=== PATIENT | female | born 1975 | race American Indian/Alaskan Native ===

== ENCOUNTER 2022-03-29 14:26 | Inpatient (IN) | payer BC ==
[2022-03-29] MEDS ORDERED: SODIUM CHLORIDE 0.9% 1000 ML 1,000 ML IV ONE ×3 (15:30→17:40)
[2022-03-29] MEDS ORDERED: SODIUM CHLORIDE 0.9% 1000 ML 1,000 ML ONE (15:31)
[2022-03-29 16:31] LABS: Basophils % (Auto) 0.3 % (0.0-1.8); Eosinophils % (Auto) 0.1 % (0.0-4.3); Hematocrit 46.1 % (30.3-42.9); Hemoglobin 15.5 gm/dl (10.1-14.3); Lymphocytes # (Auto) 1.6 K/mm3 (1.2-5.4); Lymphocytes % (Auto) 19.4 % (13.4-35.0); Mean Corpuscular HGB Conc 34 % (30-34); Mean Corpuscular Volume 97 fl (79-97); Monocytes # (Auto) 0.6 K/mm3 (0.0-0.8); Monocytes % (Auto) 6.9 % (0.0-7.3); Red Blood Count 4.77 M/mm3 (3.65-5.03)
[2022-03-29 16:32] LABS: Platelet Count 95 K/mm3 (140-440)
[2022-03-29 16:40] LABS: INR 1.08 (0.87-1.13)
[2022-03-29 16:55] LABS: Creatine Kinase MB 5.1 ng/mL (0.0-4.0)
[2022-03-29] MEDS ORDERED: ASPIRIN 325 MG TAB PO ONE (17:04)
[2022-03-29] MEDS ORDERED: INSULIN REGULAR, HUMAN 100 UNITS/1 ML IV ONE (17:07)
[2022-03-29 17:12] LABS: Albumin 4.2 g/dL (3.9-5); Calcium 9.3 mg/dL (8.4-10.2)
--- NOTE | 2022-03-29 17:20 | Emergency Department Report ---
ED Shortness of Breath HPI - General Chief Complaint: Hyperglycemia Stated Complaint: SHORTNESS OF BREATH/TACHYCARDIA Time Seen by Provider: 03/29/22 15:33 Source: patient, EMS Mode of arrival: Stretcher Limitations: No Limitations - History of Present Illness Initial Comments: 46-year-old obese female with no significant past medical history presents to the hospital complaining of shortness of breath for several days worse with exertion. As per EMS glucose was 4 5 and patient was tachycardic in the 140s to 150s. Patient denies a previous history of diabetes, vomiting, diarrhea, dysuria, polyuria, increased thirst, chest pain, abdominal pain, fever, recent travel, and control use. Previous history of . - Related Data Allergies Allergy/AdvReac Type Severity Reaction Status Date / Time No Known Allergies Allergy Unverified 03/29/22 14:51 ED Review of Systems ROS: Stated complaint: SHORTNESS OF BREATH/TACHYCARDIA Other details as noted in HPI Comment: All other systems reviewed and negative ED Past Medical Hx - Past Medical History Previous Medical History?: No - Surgical History Past Surgical History?: No - Social History Smoking Status: Light Tobacco Smoker Substance Use Type: None ED Physical Exam - General Limitations: No Limitations - Other Other exam information: General: No acute distress Head: Atraumatic Eyes: normal appearance ENT: Moist mucous membranes Neck: Normal appearance, no midline tenderness Chest: Tachypnea with equal breath sounds bilaterally, no accessory muscle use CV: Tachycardia regular rhythm Abdomen: Soft, normal bowel sounds, nontender, nondistended, no rebound or guarding Back: Normal inspection Extremity: Normal inspection, full range of motion, no calf tenderness or leg Neuro: Alert O x 3, no facial asymmetry, speech clear, no gross motor sensory deficit Psych: Appropriate behavior Skin: No rash ED Course Vital Signs 03/29/22 03/29/22 03/29/22 14:26 15:16 15:19 Temperature 97.8 F Pulse Rate 140 H 134 H Respiratory 24 20 18 Rate Blood Pressure Blood Pressure 140/92 [Left] O2 Sat by Pulse 95 94 98 Oximetry 03/29/22 15:30 Temperature Pulse Rate 132 H Respiratory 35 H Rate Blood Pressure 110/62 Blood Pressure [Left] O2 Sat by Pulse 98 Oximetry ED Medical Decision Making - Lab Data Result diagrams: 03/29/22 15:49 07/13/22 15:49 Lab Results 03/29/22 03/29/22 03/29/22 Range/Units 15:29 15:49 15:49 WBC 8.1 (4.5-11.0) K/mm3 RBC 4.77 (3.65-5.03) M/mm3 Hgb 15.5 H (10.1-14.3) gm/dl Hct 46.1 H (30.3-42.9) % MCV 97 (79-97) fl MCH 32 (28-32) pg MCHC 34 (30-34) % RDW 13.0 L (13.2-15.2) % Plt Count 95 L (140-440) K/mm3 Lymph % (Auto) 19.4 (13.4-35.0) % [place] % (Auto) 6.9 (0.0-7.3) % Eos % (Auto) 0.1 (0.0-4.3) % Baso % (Auto) 0.3 (0.0-1.8) % Lymph # (Auto) 1.6 (1.2-5.4) K/mm3 [place] # (Auto) 0.6 (0.0-0.8) K/mm3 Eos # (Auto) 0.0 (0.0-0.4) K/mm3 Baso # (Auto) 0.0 (0.0-0.1) K/mm3 Seg Neutrophils % 73.3 H (40.0-70.0) % Seg Neutrophils # 6.0 (1.8-7.7) K/mm3 PT (12.2-14.9) Sec. INR (0.87-1.13) VBG pH (7.320-7.420) Sodium 133 L (137-145) mmol/L Potassium 5.2 H (3.6-5.0) mmol/L Chloride 95.0 L (98-107) mmol/L Carbon Dioxide 13 L (22-30) mmol/L Anion Gap 30 mmol/L BUN 12 (7-17) mg/dL Creatinine 1.3 H (0.6-1.2) mg/dL Estimated GFR 44 ml/min BUN/Creatinine Ratio 9 % Glucose 574 H* (65-100) mg/dL POC Glucose 466 H (70-105) mg/dL Calcium 9.3 (8.4-10.2) mg/dL Phosphorus (2.5-4.5) mg/dL Magnesium (1.7-2.3) mg/dL Total Bilirubin 0.50 (0.1-1.2) mg/dL AST 217 H (5-40) units/L ALT 206 H (7-56) units/L Alkaline Phosphatase 79 (35-129) units/L Total Creatine Kinase (30-135) units/L CK-MB (CK-2) (0.0-4.0) ng/mL CK-MB (CK-2) Rel Index (0-4) Troponin T (0.00-0.029) ng/mL Total Protein 7.2 (6.3-8.2) g/dL Albumin 4.2 (3.9-5) g/dL Albumin/Globulin Ratio 1.4 % TSH (0.270-4.200) mlU/mL Free T4 (0.76-1.46) ng/dL HCG, Qual (Negative) 03/29/22 03/29/22 03/29/22 Range/Units 15:49 15:49 15:49 WBC (4.5-11.0) K/mm3 RBC (3.65-5.03) M/mm3 Hgb (10.1-14.3) gm/dl Hct (30.3-42.9) % MCV (79-97) fl MCH (28-32) pg MCHC (30-34) % RDW (13.2-15.2) % Plt Count (140-440) K/mm3 Lymph % (Auto) (13.4-35.0) % [place] % (Auto) (0.0-7.3) % Eos % (Auto) (0.0-4.3) % Baso % (Auto) (0.0-1.8) % Lymph # (Auto) (1.2-5.4) K/mm3 [place] # (Auto) (0.0-0.8) K/mm3 Eos # (Auto) (0.0-0.4) K/mm3 Baso # (Auto) (0.0-0.1) K/mm3 Seg Neutrophils % (40.0-70.0) % Seg Neutrophils # (1.8-7.7) K/mm3 PT (12.2-14.9) Sec. INR (0.87-1.13) VBG pH 7.213 L (7.320-7.420) Sodium (137-145) mmol/L Potassium (3.6-5.0) mmol/L Chloride (98-107) mmol/L Carbon Dioxide (22-30) mmol/L Anion Gap mmol/L BUN (7-17) mg/dL Creatinine (0.6-1.2) mg/dL Estimated GFR ml/min BUN/Creatinine Ratio % Glucose (65-100) mg/dL POC Glucose (70-105) mg/dL Calcium (8.4-10.2) mg/dL Phosphorus (2.5-4.5) mg/dL Magnesium (1.7-2.3) mg/dL Total Bilirubin (0.1-1.2) mg/dL AST (5-40) units/L ALT (7-56) units/L Alkaline Phosphatase (35-129) units/L Total Creatine Kinase (30-135) units/L CK-MB (CK-2) (0.0-4.0) ng/mL CK-MB (CK-2) Rel Index (0-4) Troponin T (0.00-0.029) ng/mL Total Protein (6.3-8.2) g/dL Albumin (3.9-5) g/dL Albumin/Globulin Ratio % TSH 1.120 (0.270-4.200) mlU/mL Free T4 1.42 (0.76-1.46) ng/dL HCG, Qual Negative (Negative) 03/29/22 03/29/22 Range/Units 15:49 15:49 WBC (4.5-11.0) K/mm3 RBC (3.65-5.03) M/mm3 Hgb (10.1-14.3) gm/dl Hct (30.3-42.9) % MCV (79-97) fl MCH (28-32) pg MCHC (30-34) % RDW (13.2-15.2) % Plt Count (140-440) K/mm3 Lymph % (Auto) (13.4-35.0) % [place] % (Auto) (0.0-7.3) % Eos % (Auto) (0.0-4.3) % Baso % (Auto) (0.0-1.8) % Lymph # (Auto) (1.2-5.4) K/mm3 [place] # (Auto) (0.0-0.8) K/mm3 Eos # (Auto) (0.0-0.4) K/mm3 Baso # (Auto) (0.0-0.1) K/mm3 Seg Neutrophils % (40.0-70.0) % Seg Neutrophils # (1.8-7.7) K/mm3 PT 15.2 H (12.2-14.9) Sec. INR 1.08 (0.87-1.13) VBG pH (7.320-7.420) Sodium (137-145) mmol/L Potassium (3.6-5.0) mmol/L Chloride (98-107) mmol/L Carbon Dioxide (22-30) mmol/L Anion Gap mmol/L BUN (7-17) mg/dL Creatinine (0.6-1.2) mg/dL Estimated GFR ml/min BUN/Creatinine Ratio % Glucose (65-100) mg/dL POC Glucose (70-105) mg/dL Calcium (8.4-10.2) mg/dL Phosphorus 6.80 H (2.5-4.5) mg/dL Magnesium 2.00 (1.7-2.3) mg/dL Total Bilirubin (0.1-1.2) mg/dL AST (5-40) units/L ALT (7-56) units/L Alkaline Phosphatase (35-129) units/L Total Creatine Kinase 146 H (30-135) units/L CK-MB (CK-2) 5.1 H (0.0-4.0) ng/mL CK-MB (CK-2) Rel Index 3.4 (0-4) Troponin T 0.167 H* (0.00-0.029) ng/mL Total Protein (6.3-8.2) g/dL Albumin (3.9-5) g/dL Albumin/Globulin Ratio % TSH (0.270-4.200) mlU/mL Free T4 (0.76-1.46) ng/dL HCG, Qual (Negative) - EKG Data -: EKG Interpreted by Mt EKG shows normal: sinus rhythm, intervals (QTC 518), ST-T waves (no stemi) Rate: tachycardia - Radiology Data Radiology results: report reviewed XR chest 1V ap INDICATION / CLINICAL INFORMATION: sob COMPARISON: None available. FINDINGS: SUPPORT DEVICES: None. HEART / MEDIASTINUM: No significant abnormality. LUNGS / PLEURA: Lungs are clear. Costophrenic sulci are sharp. No pneumothorax. ADDITIONAL FINDINGS: No significant additional findings. IMPRESSION: 1. No acute findings. - Medical Decision Making 46-year-old female presents to the hospital with shortness of breath. Patient has new onset diabetes with laboratory findings suggestive of DKA. Shortness of breath likely secondary to compensation from metabolic acidosis. Chest x-ray unremarkable with normal pulse ox. Patient treated with insulin bolus, IV fluids, insulin drip with DKA protocol initiated. Case discussed with critical care attending who will consult. Mild troponin elevation noted with normal CK- MB. Dr. Vann does not advise cardiology consultation at this time. Patient does not have chest pain. hospitalist will admit. UA, UDS and thyroid pending at disposition Critical Care Time: Yes Critical care attestation.: If time is entered above; I have spent that time in minutes in the direct care of this critically ill patient, excluding procedure time. ED Disposition Clinical Impression: DKA (diabetic ketoacidosis), Diabetes mellitus, new onset, Thrombocytopenia Disposition: 09 ADMITTED INPATIENT Is pt being admited?: Yes Does the pt Need Aspirin: No Condition: Stable Instructions: Diabetic Ketoacidosis (ED), Diabetes Mellitus Type 2 in Adults (ED) Time of Disposition: 17:20 (dr Vann/hospitalist)
--- NOTE | 2022-03-29 17:20 | XRay Report ---
XR chest 1V ap INDICATION / CLINICAL INFORMATION: sob COMPARISON: None available. FINDINGS: SUPPORT DEVICES: None. HEART / MEDIASTINUM: No significant abnormality. LUNGS / PLEURA: Lungs are clear. Costophrenic sulci are sharp. No pneumothorax. ADDITIONAL FINDINGS: No significant additional findings. IMPRESSION: 1. No acute findings. Signer Name: Catracho Morales MD Signed: 03/29/2022 5:10 PM Workstation Name: [email or web address]
[2022-03-29 17:23] LABS: Free T4 (Free Thyroxine) 1.42 ng/dL (0.76-1.46)
[2022-03-29] MEDS ORDERED: POTASSIUM CHLORIDE 10 MEQ 10 MEQ/100 ML BAG IV PRN (17:40)
[2022-03-29] MEDS ORDERED: DEXTROSE 50% IN WATER (25GM) 50 ML SYRINGE IV PRN (17:40)
[2022-03-29] MEDS ORDERED: IBUPROFEN 600 MG TAB PO PRN (17:42)
[2022-03-29] MEDS ORDERED: D5W/0.45% NACL/KCL 20 MEQ 20 MEQ/1,000 ML BAG IV SCH (18:00)
[2022-03-29] MEDS ORDERED: INSULIN REGULAR, HUMAN 100 UNITS in SODIUM CHLORIDE 0.9% 99 ML IV SCH (18:00)
[2022-03-29 19:16] LABS: Chol/HDL Ratio 3.65 %
[2022-03-29 21:02] LABS: Calcium 8.9 mg/dL (8.4-10.2)
[2022-03-30] MEDS ORDERED: LORazepam 2 MG/ML VIAL IV ONE (00:28)
[2022-03-30 02:37] LABS: BUN/Creatinine Ratio 16; Blood Urea Nitrogen 16 mg/dL (7-17); Calcium 9.2 mg/dL (8.4-10.2); Hemolysis Index 17
--- NOTE | 2022-03-30 06:03 | History and Physical Report ---
History of Present Illness Date of examination: 03/29/22 Date of admission: 03/29/22 17:44 Chief complaint: Severe generalized weakness for 10 days History of present illness: 46-year-old -Italian female with no significant past medical history except for anxiety comes in for generalized weakness and shortness of breath for about 10 to 14 days. No vomiting or diarrhea. Some nausea present. Patient called EMS. Blood glucose Accu-Chek was very high above 500. Emergency room course :high blood glucose level and increased anion gap--- new onset diabetes and hyperosmolar state for which patient is being admitted to ICU for IV insulin drip and IV fluids . Other than mild anxiety patient does not have any significant past medical history. No fever or chills. No recent increased travel. - Past Medical History Previous Medical History?: No - Surgical History Past Surgical History?: No - Social History Smoking Status: Light Tobacco Smoker--3 to 4/day Substance Use Type: None Review of Systems ROS: Stated complaint: SHORTNESS OF BREATH/TACHYCARDIA Other details as noted in HPI Comment: All other systems reviewed and negative Medications and Allergies Allergies Allergy/AdvReac Type Severity Reaction Status Date / Time No Known Allergies Allergy Unverified 03/29/22 14:51 Active Meds: Active Medications Dextrose (Dextrose 50% In Water (25gm) 50 Ml Syringe) 0 ml IV Q30MIN PRN; Protocol PRN Reason: Hypoglycemia Insulin Human Regular 100 (units/ Sodium Chloride) 100 mls @ 1 mls/hr IV TITR J LUIS; Protocol Last Titration: 03/30/22 05:29 Dose: 3 units/hr, 3 mls/hr Potassium Chloride/Dextrose/Sod Cl (D5w/0.45% Nacl/Kcl 20 Meq) 20 meq in 1,000 mls @ 125 mls/hr IV DIRECT J LUIS Potassium Chloride (Kcl 10meq/100ml) 10 meq in 100 mls @ 100 mls/hr IV Q1H PRN PRN Reason: LOW Potassium Levels Ibuprofen (Ibuprofen 600 Mg Tab) 600 mg PO Q6H PRN PRN Reason: Pain, Mild (1-3) Morphine Sulfate (Morphine 2 Mg/1 Ml Inj) 2 mg IV Q4H PRN PRN Reason: Pain, Moderate (4-6) Sodium Chloride (Sodium Chloride 0.9% 10 Ml Flush Syringe) 10 ml IV BID J LUIS Sodium Chloride (Sodium Chloride 0.9% 10 Ml Flush Syringe) 10 ml IV PRN PRN PRN Reason: LINE FLUSH Exam - Physical Exam Narrative exam: Patient is moderately obese - Constitutional Vitals: Temp Pulse Resp BP Pulse Ox 97.8 F 122 H 31 H 118/98 98 03/29/22 14:26 03/30/22 01:00 03/30/22 01:00 03/30/22 01:00 03/30/22 01:00 General appearance: Present: mild distress, well-nourished - EENT Eyes: Present: PERRL ENT: hearing intact, clear oral mucosa - Neck Neck: Present: supple, normal ROM - Respiratory Respiratory effort: normal Respiratory: bilateral: CTA - Cardiovascular Heart rate: 78 Rhythm: regular Heart Sounds: Present: S1 & S2. Absent: rub, click - Extremities Extremities: pulses symmetrical, No edema Peripheral Pulses: within normal limits - Abdominal General gastrointestinal: Present: soft, non-tender, non-distended, normal bowel sounds Female genitourinary: Present: normal - Integumentary Integumentary: Present: clear, warm, dry - Musculoskeletal Musculoskeletal: gait normal, strength equal bilaterally - Psychiatric Psychiatric: appropriate mood/affect, intact judgment & insight - Neurologic Neurologic: CNII-XII intact, moves all extremities - Allied Health Allied health notes reviewed: nursing, case management HEART Score - HEART Score Troponin: Troponin T 0.167 ng/mL (0.00-0.029) H* 03/29/22 15:49 Results - Labs CBC & Chem 7: 03/29/22 15:49 03/30/22 01:44 Labs: Laboratory Last Values WBC 8.1 K/mm3 (4.5-11.0) 03/29/22 15:49 RBC 4.77 M/mm3 (3.65-5.03) 03/29/22 15:49 Hgb 15.5 gm/dl (10.1-14.3) H 03/29/22 15:49 Hct 46.1 % (30.3-42.9) H 03/29/22 15:49 MCV 97 fl (79-97) 03/29/22 15:49 MCH 32 pg (28-32) 03/29/22 15:49 MCHC 34 % (30-34) 03/29/22 15:49 RDW 13.0 % (13.2-15.2) L 03/29/22 15:49 Plt Count 95 K/mm3 (140-440) L 03/29/22 15:49 Lymph % (Auto) 19.4 % (13.4-35.0) 03/29/22 15:49 [place] % (Auto) 6.9 % (0.0-7.3) 03/29/22 15:49 Eos % (Auto) 0.1 % (0.0-4.3) 03/29/22 15:49 Baso % (Auto) 0.3 % (0.0-1.8) 03/29/22 15:49 Lymph # (Auto) 1.6 K/mm3 (1.2-5.4) 03/29/22 15:49 [place] # (Auto) 0.6 K/mm3 (0.0-0.8) 03/29/22 15:49 Eos # (Auto) 0.0 K/mm3 (0.0-0.4) 03/29/22 15:49 Baso # (Auto) 0.0 K/mm3 (0.0-0.1) 03/29/22 15:49 Seg Neutrophils % 73.3 % (40.0-70.0) H 03/29/22 15:49 Seg Neutrophils # 6.0 K/mm3 (1.8-7.7) 03/29/22 15:49 PT 15.2 Sec. (12.2-14.9) H 03/29/22 15:49 INR 1.08 (0.87-1.13) 03/29/22 15:49 VBG pH 7.213 (7.320-7.420) L 03/29/22 15:49 Sodium 136 mmol/L (137-145) L 03/30/22 01:44 Potassium 4.5 mmol/L (3.6-5.0) 03/30/22 01:44 Chloride 103.4 mmol/L (98-107) 03/30/22 01:44 Carbon Dioxide 14 mmol/L (22-30) L 03/30/22 01:44 Anion Gap 23 mmol/L 03/30/22 01:44 BUN 16 mg/dL (7-17) 03/30/22 01:44 Creatinine 1.0 mg/dL (0.6-1.2) 03/30/22 01:44 Estimated GFR > 60 ml/min 03/30/22 01:44 BUN/Creatinine Ratio 16 % 03/30/22 01:44 Glucose 196 mg/dL (65-100) H 03/30/22 01:44 POC Glucose 188 mg/dL (70-105) H 03/30/22 05:29 Calcium 9.2 mg/dL (8.4-10.2) 03/30/22 01:44 Phosphorus 6.80 mg/dL (2.5-4.5) H 03/29/22 15:49 Magnesium 2.00 mg/dL (1.7-2.3) 03/29/22 15:49 Total Bilirubin 0.50 mg/dL (0.1-1.2) 03/29/22 15:49 AST 217 units/L (5-40) H 03/29/22 15:49 ALT 206 units/L (7-56) H 03/29/22 15:49 Alkaline Phosphatase 79 units/L (35-129) 03/29/22 15:49 Total Creatine Kinase 146 units/L (30-135) H 03/29/22 15:49 CK-MB (CK-2) 5.1 ng/mL (0.0-4.0) H 03/29/22 15:49 CK-MB (CK-2) Rel Index 3.4 (0-4) 03/29/22 15:49 Troponin T 0.167 ng/mL (0.00-0.029) H* 03/29/22 15:49 Total Protein 7.2 g/dL (6.3-8.2) 03/29/22 15:49 Albumin 4.2 g/dL (3.9-5) 03/29/22 15:49 Albumin/Globulin Ratio 1.4 % 03/29/22 15:49 Triglycerides 168 mg/dL (2-149) H 03/29/22 15:49 Cholesterol 190 mg/dL (50-199) 03/29/22 15:49 LDL Cholesterol Direct 127 mg/dL (50-130) 03/29/22 15:49 HDL Cholesterol 52 mg/dL (40-59) 03/29/22 15:49 Cholesterol/HDL Ratio 3.65 % 03/29/22 15:49 TSH 1.120 mlU/mL (0.270-4.200) 03/29/22 15:49 Free T4 1.42 ng/dL (0.76-1.46) 03/29/22 15:49 HCG, Qual Negative (Negative) 03/29/22 15:49 Short CBC 03/29/22 Range/Units 15:49 WBC 8.1 (4.5-11.0) K/mm3 Hgb 15.5 H (10.1-14.3) gm/dl Hct 46.1 H (30.3-42.9) % Plt Count 95 L (140-440) K/mm3 BMP 03/29/22 03/29/22 03/30/22 15:49 20:26 01:44 Sodium 133 L 135 L 136 L Potassium 5.2 H 4.5 4.5 Chloride 95.0 L 99.2 103.4 Carbon Dioxide 13 L 13 L 14 L BUN 12 14 16 Creatinine 1.3 H 1.2 1.0 Glucose 574 H* 399 H 196 H Calcium 9.3 8.9 9.2 Cardiac Enzymes 03/29/22 Range/Units 15:49 Total Creatine Kinase 146 H (30-135) units/L CK-MB (CK-2) 5.1 H (0.0-4.0) ng/mL Troponin T 0.167 H* (0.00-0.029) ng/mL Liver Function 03/29/22 Range/Units 15:49 Total Bilirubin 0.50 (0.1-1.2) mg/dL AST 217 H (5-40) units/L ALT 206 H (7-56) units/L Alkaline Phosphatase 79 (35-129) units/L Albumin 4.2 (3.9-5) g/dL - Imaging and Cardiology Imaging and Cardiology: Chest x-ray Chest x-ray no acute findings Assessment and Plan Assessment and plan: Critical care statement The high probability OF a clinically significant sudden or life-threatening deterioration of the cardiorespiratory system and endocrine system required my full and direct attention, intervention and postoperative management. The aggregate critical care time was 40 minutes. The time is in addition to time spent performing reported procedures but includes the followin: Data review and interpretation 2: Patient assessment and monitoring of vital signs 3: Documentation 4:: Medication orders and management Advance Directives: Yes (Full code) VTE prophylaxis?: Chemical Plan of care discussed with patient/family: Yes - Patient Problems (1) Hyperosmolar non-ketotic state due to type 2 diabetes mellitus Current Visit: Yes Status: Acute Plan to address problem: Patient initiated on IV insulin drip plan IV fluids New onset diabetes Patient to be educated about diabetes by primary care and dietitian Moiz also initiated Urinalysis was ordered stat but pending Expect no ketones (2) Hyperkalemia Current Visit: Yes Status: Acute Plan to address problem: Mild Should resolve with IV insulin Potassium is 5.2 (3) Hyponatremia Current Visit: Yes Status: Acute Plan to address problem: Should resolve with IV fluids and correction of blood glucose (4) Metabolic acidosis Current Visit: Yes Status: Acute Plan to address problem: Secondary to hyperosmolar state IV insulin and IV fluids for now Anion gap is high and venous pH is slightly low (5) Elevated troponin Current Visit: Yes Status: Acute Plan to address problem: Will repeat the troponin NSTEMI 2 (6) DVT prophylaxis Current Visit: Yes Status: Acute Plan to address problem: On anticoagulation GI prophylaxis (7) Advance care planning Current Visit: Yes Status: Acute Plan to address problem: Disease management conducted diagnosis prognosis and care plan discussed patient acknowledges care plan. Care plan +30 minutes
[2022-03-30 07:01] LABS: Bilirubin,Urine NEG (Negative); Blood,Urine MOD (Negative); Color,Urine Yellow (Yellow)
[2022-03-30 07:07] LABS: Bacteria,Urine 1+ /HPF (Negative); Hyaline Casts,Urine 54 /LPF; Mucus,Urine FEW /HPF
[2022-03-30 07:10] LABS: Amphetamine Screen,Urine Negative; Benzodiazepines Screen,Urine Negative; Cannabinoid Screen,Urine Negative; Cocaine Screen,Urine Negative; Methadone Screen,Urine Negative; Opiate Screen,Urine Negative
--- NOTE | 2022-03-30 09:17 | Electrocardiograph Report ---
[facility] Test Date: 2022-03-29 Test Time: 15:35:37 Pat Name: LATONIA JAMIL Department: Room: [place] [address] Gender: F Accounts Supervisor: ADALGISA : 1975 Requested By: RANJITH SIMON Order Number: [id number] Reading MD: Abner Lynn Measurements Intervals [place] Rate: 133 P: 37 [place]: 96 QRS: -12 QRSD: 89 T: -8 QT: 348 QTc: 518 Interpretive Statements Sinus tachycardia Inferior infarct, age indeterminate nonspecific st-t No previous ECG available for comparison Electronically Signed On 03-30-2022 9:16:31 EDT by Abner Lynn
--- NOTE | 2022-03-30 12:06 | Progress Note ---
Assessment and Plan Assessment and plan: History of present illness: 46-year-old -[place] female with no significant past medical history except for anxiety comes in for generalized weakness and shortness of breath for about 10 to 14 days. No vomiting or diarrhea. Some nausea present. Patient called EMS. Blood glucose Accu-Chek was very high above 500. Emergency room course :high blood glucose level and increased anion gap--- new onset diabetes and hyperosmolar state for which patient is being admitted to ICU for IV insulin drip and IV fluids . Other than mild anxiety patient does not have any signi ficant past medical history. No fever or chills. No recent increased travel. Assessment and Plan: #Diabetic ketoacidosis - A , BG 574, now 177, ketonuria, VB.2 - weakness, states she is compliant with meds. - DKA protocol: IV insulin, IVF. - NPO until AG closes - once AG closed (< 14), can start lantus 10 mg subq. Please run insulin gtt 1hr after lantus admin. Can initiate diabetic diet as well - accuchecks q1 hr until AG closed - BMP q4hr until AG closed CCM consultation #Chest pain -Endorses chest pressure, shortness of breath, diaphoresis. Denies jaw pain or shoulder pain. Risk factors: Diabetic, occasional smoker, overweight, family history of di abetes and hypertension -EKG sinus tachycardia, rate 133. no st elevation or depression noted. -Troponin elevation 0.167, trend every 6 hour Cardiology consultation Suspect troponin elevation is type II however would consider Lexiscan given symptomology and risk factors. #Hyperkalemia -K5.2 on admission, downtrending -trend on serial bmp #Pseudohyponatremia - 2/2 DKA #Metabolic acidosis - 2/2 DKA #Type 2 Diabetes with Hyperglycemia - newly dx diabetic. not on medication - hemoglobin A1c ordered - home regimen: denies - current regimen: Insulin gtt - blood glucose goal 140-180 while inpatient - continue to monitor #Morbid Obesity - BMI 33.7 - Counseled patient on the importance of weight loss, incorporating exercise, and dietary changes (lean meats, fresh fruits and vegetables, and water intake). Patient expresses understanding. - Time: +15 min The high probability of a clinically significant, sudden or life threatening deterioration of the [multi] system(s) required my full and direct attention, intervention and personal management. The aggregate critical care time was [60] minutes. This time is in addition to time spent performing reported procedures but includes the following: [x] Data Review and interpretation [x] Patient assessment and monitoring of vital signs [x] Documentation [x] Medication orders and management History Interval history: No acute complaints on encounter. She denies any shortness of breath, chest pain. She denies any nausea or vomiting. Patient states that prior to admission she had been's feeling a sense of general unwellness and chest pressure. She states that the chest pressure was associated with shortness of breath and diaphoresis. This is never happened to her before. She has no history of PR, stroke, blood clots. She smokes Black and mild cigars on occasion. She is a newly diagnosed diabetic and is obese and has been for some quite some time. Family history significant for diabetes/hypertension. She denied having ever having a stress test or cardiac cath. The patient has not seen a primary care doctor in quite some time. Hospitalist Physical - Physical exam Narrative exam: Physical Exam: VITAL SIGNS: Reviewed. GENERAL: The patient appears normally developed, Vital signs as documented. Obese HEAD: No signs of head trauma. EYES: Pupils are equal. Extraocular motions intact. EARS: Hearing grossly intact. MOUTH: Oropharynx is normal. NECK: No adenopathy, no JVD. CHEST: Chest with clear breath sounds bilaterally. No wheezes, rales, or rhonchi. CARDIAC: Regular rate and rhythm. S1 and S2, without murmurs, gallops, or rubs. VASCULAR: No Edema. Peripheral pulses normal and equal in all extremities. ABDOMEN: Soft, non tender and non distended. No rebound or guarding, and no masses palpated. Bowel Sounds normal. MUSCULOSKELETAL: Good range of motion of all major joints. Extremities without clubbing, cyanosis or edema. NEUROLOGIC EXAM: Alert and oriented x 4. no focal sensory or strength deficits. PSYCHIATRIC: Mood normal. SKIN: detail exam as documented in skin assessment - Constitutional Vitals: Temp Pulse Resp BP Pulse Ox 97.8 F 119 H 28 H 109/80 100 03/29/22 14:26 03/30/22 11:46 03/30/22 11:46 03/30/22 11:46 03/30/22 11:46 General appearance: Present: mild distress, well-nourished HEART Score - HEART Score Troponin: Troponin T 0.167 ng/mL (0.00-0.029) H* 03/29/22 15:49 Results - Labs CBC & Chem 7: 03/29/22 15:49 03/30/22 01:44 Labs: Laboratory Last Values WBC 8.1 K/mm3 (4.5-11.0) 03/29/22 15:49 RBC 4.77 M/mm3 (3.65-5.03) 03/29/22 15:49 Hgb 15.5 gm/dl (10.1-14.3) H 03/29/22 15:49 Hct 46.1 % (30.3-42.9) H 03/29/22 15:49 MCV 97 fl (79-97) 03/29/22 15:49 MCH 32 pg (28-32) 03/29/22 15:49 MCHC 34 % (30-34) 03/29/22 15:49 RDW 13.0 % (13.2-15.2) L 03/29/22 15:49 Plt Count 95 K/mm3 (140-440) L 03/29/22 15:49 Lymph % (Auto) 19.4 % (13.4-35.0) 03/29/22 15:49 [place] % (Auto) 6.9 % (0.0-7.3) 03/29/22 15:49 Eos % (Auto) 0.1 % (0.0-4.3) 03/29/22 15:49 Baso % (Auto) 0.3 % (0.0-1.8) 03/29/22 15:49 Lymph # (Auto) 1.6 K/mm3 (1.2-5.4) 03/29/22 15:49 [place] # (Auto) 0.6 K/mm3 (0.0-0.8) 03/29/22 15:49 Eos # (Auto) 0.0 K/mm3 (0.0-0.4) 03/29/22 15:49 Baso # (Auto) 0.0 K/mm3 (0.0-0.1) 03/29/22 15:49 Seg Neutrophils % 73.3 % (40.0-70.0) H 03/29/22 15:49 Seg Neutrophils # 6.0 K/mm3 (1.8-7.7) 03/29/22 15:49 PT 15.2 Sec. (12.2-14.9) H 03/29/22 15:49 INR 1.08 (0.87-1.13) 03/29/22 15:49 VBG pH 7.213 (7.320-7.420) L 03/29/22 15:49 Sodium 136 mmol/L (137-145) L 03/30/22 01:44 Potassium 4.5 mmol/L (3.6-5.0) 03/30/22 01:44 Chloride 103.4 mmol/L (98-107) 03/30/22 01:44 Carbon Dioxide 14 mmol/L (22-30) L 03/30/22 01:44 Anion Gap 23 mmol/L 03/30/22 01:44 BUN 16 mg/dL (7-17) 03/30/22 01:44 Creatinine 1.0 mg/dL (0.6-1.2) 03/30/22 01:44 Estimated GFR > 60 ml/min 03/30/22 01:44 BUN/Creatinine Ratio 16 % 03/30/22 01:44 Glucose 196 mg/dL (65-100) H 03/30/22 01:44 POC Glucose 141 mg/dL (70-105) H 03/30/22 11:45 Calcium 9.2 mg/dL (8.4-10.2) 03/30/22 01:44 Phosphorus 6.80 mg/dL (2.5-4.5) H 03/29/22 15:49 Magnesium 2.00 mg/dL (1.7-2.3) 03/29/22 15:49 Total Bilirubin 0.50 mg/dL (0.1-1.2) 03/29/22 15:49 AST 217 units/L (5-40) H 03/29/22 15:49 ALT 206 units/L (7-56) H 03/29/22 15:49 Alkaline Phosphatase 79 units/L (35-129) 03/29/22 15:49 Total Creatine Kinase 146 units/L (30-135) H 03/29/22 15:49 CK-MB (CK-2) 5.1 ng/mL (0.0-4.0) H 03/29/22 15:49 CK-MB (CK-2) Rel Index 3.4 (0-4) 03/29/22 15:49 Troponin T 0.167 ng/mL (0.00-0.029) H* 03/29/22 15:49 Total Protein 7.2 g/dL (6.3-8.2) 03/29/22 15:49 Albumin 4.2 g/dL (3.9-5) 03/29/22 15:49 Albumin/Globulin Ratio 1.4 % 03/29/22 15:49 Triglycerides 168 mg/dL (2-149) H 03/29/22 15:49 Cholesterol 190 mg/dL (50-199) 03/29/22 15:49 LDL Cholesterol Direct 127 mg/dL (50-130) 03/29/22 15:49 HDL Cholesterol 52 mg/dL (40-59) 03/29/22 15:49 Cholesterol/HDL Ratio 3.65 % 03/29/22 15:49 TSH 1.120 mlU/mL (0.270-4.200) 03/29/22 15:49 Free T4 1.42 ng/dL (0.76-1.46) 03/29/22 15:49 HCG, Qual Negative (Negative) 03/29/22 15:49 Urine Color Yellow (Yellow) 03/30/22 06:43 Urine Turbidity Slightly-cloudy (Clear) 03/30/22 06:43 Urine pH 5.0 (5.0-7.0) 03/30/22 06:43 Ur Specific [place] 1.020 (1.003-1.030) 03/30/22 06:43 Urine Protein 100 mg/dl mg/dL (Negative) 03/30/22 06:43 Urine Glucose (UA) >=500 mg/dL (Negative) 03/30/22 06:43 Urine Ketones 20 mg/dL (Negative) 03/30/22 06:43 Urine Blood Mod (Negative) 03/30/22 06:43 Urine Nitrite Neg (Negative) 03/30/22 06:43 Urine Bilirubin Neg (Negative) 03/30/22 06:43 Urine Urobilinogen 2.0 mg/dL (<2.0) 03/30/22 06:43 Ur Leukocyte Esterase Neg (Negative) 03/30/22 06:43 Urine WBC (Auto) 4.0 /HPF (0.0-6.0) 03/30/22 06:43 Urine RBC (Auto) 9.0 /HPF (0.0-6.0) 03/30/22 06:43 U Epithel Cells (Auto) 9.0 /HPF (0-13.0) 03/30/22 06:43 Urine Bacteria (Auto) 1+ /HPF (Negative) 03/30/22 06:43 Hyaline Casts 54 /LPF 03/30/22 06:43 Urine Mucus Few /HPF 03/30/22 06:43 Urine Opiates Screen Negative 03/30/22 06:43 Urine Methadone Screen Negative 03/30/22 06:43 Ur Barbiturates Screen Negative 03/30/22 06:43 Ur Phencyclidine Scrn Negative 03/30/22 06:43 Ur Amphetamines Screen Negative 03/30/22 06:43 U Benzodiazepines Scrn Negative 03/30/22 06:43 Urine Cocaine Screen Negative 03/30/22 06:43 U Marijuana (THC) Screen Negative 03/30/22 06:43 Drugs of Abuse Note Disclamer 03/30/22 06:43 Active Medications - Current Medications Current Medications: Generic Name Dose Route Start Last Admin Trade Name Freq PRN Reason Stop Dose Admin Dextrose 0 ml 03/29/22 17:40 Dextrose 50% In Water (25gm) 50 Ml Syringe IV Q30MIN PRN Hypoglycemia Protocol Insulin Human Regular 100 100 mls @ 1 mls/hr 03/29/22 18:00 03/30/22 06:42 units/ Sodium Chloride IV 2.5 units/hr TITR J LUIS 2.5 mls/hr Titration Protocol 1 UNITS/HR Potassium Chloride/Dextrose/Sod Cl 20 meq in 1,000 mls @ 125 mls/hr 03/29/22 18:00 D5w/0.45% Nacl/Kcl 20 Meq IV DIRECT J LUIS Potassium Chloride 10 meq in 100 mls @ 100 mls/hr 03/29/22 17:40 Kcl 10meq/100ml IV Q1H PRN LOW Potassium Levels Ibuprofen 600 mg 03/29/22 17:42 Ibuprofen 600 Mg Tab PO Q6H PRN Pain, Mild (1-3) Morphine Sulfate 2 mg 03/29/22 17:42 Morphine 2 Mg/1 Ml Inj IV Q4H PRN Pain, Moderate (4-6) Sodium Chloride 10 ml 03/29/22 22:00 03/30/22 11:22 Sodium Chloride 0.9% 10 Ml Flush Syringe IV 10 ml BID J LUIS Administration Sodium Chloride 10 ml 03/29/22 17:42 Sodium Chloride 0.9% 10 Ml Flush Syringe IV PRN PRN LINE FLUSH
--- NOTE | 2022-03-30 12:43 | Consultation ---
History of Present Illness Consult date: 03/30/22 Requesting physician: KAREN CARRANZA Consult reason: elevated troponin History of present illness: Patient is a 46-year-old female with a past medical history of anxiety who presented to the ED yesterday with a complaint of fatigue and shortness of breath x3 days. Patient reports that initially she thought it was her anxiety however over the last 3 days she has had her symptoms continue to worsen. Patient called EMS to be further evaluated. Upon arrival patient blood glucose was found to be above 500 patient was transported to the ED for further evaluation, found to be in DKA, and started on insulin drip. Furthermore, patient was found to have elevated troponins. Patient also endorsed some chest tightness however she reports that chest tightness is associated with her anxiety. She denies crushing or squeezing pain, nausea, vomiting, diaphoresis. At time of interview patient is currently chest pain-free. Patient reports that she has not seen a primary care provider in several years and that diagnosis of diabetes is new. Patient is previously known to our practice. Cardiology has been consulted for elevated troponins. Past History Past Medical History: other (anxiety) Past Surgical History: Social history: smoking Family history: CAD, cancer, hypertension Medications and Allergies Allergies Allergy/AdvReac Type Severity Reaction Status Date / Time No Known Allergies Allergy Unverified 03/29/22 14:51 Active Meds: Active Medications Dextrose (Dextrose 50% In Water (25gm) 50 Ml Syringe) 0 ml IV Q30MIN PRN; Protocol PRN Reason: Hypoglycemia Insulin Human Regular 100 (units/ Sodium Chloride) 100 mls @ 1 mls/hr IV TITR J LUIS; Protocol Last Titration: 03/30/22 06:42 Dose: 2.5 units/hr, 2.5 mls/hr Potassium Chloride/Dextrose/Sod Cl (D5w/0.45% Nacl/Kcl 20 Meq) 20 meq in 1,000 mls @ 125 mls/hr IV DIRECT J LUIS Potassium Chloride (Kcl 10meq/100ml) 10 meq in 100 mls @ 100 mls/hr IV Q1H PRN PRN Reason: LOW Potassium Levels Ibuprofen (Ibuprofen 600 Mg Tab) 600 mg PO Q6H PRN PRN Reason: Pain, Mild (1-3) Morphine Sulfate (Morphine 2 Mg/1 Ml Inj) 2 mg IV Q4H PRN PRN Reason: Pain, Moderate (4-6) Sodium Chloride (Sodium Chloride 0.9% 10 Ml Flush Syringe) 10 ml IV BID J LUIS Last Admin: 03/30/22 11:22 Dose: 10 ml Sodium Chloride (Sodium Chloride 0.9% 10 Ml Flush Syringe) 10 ml IV PRN PRN PRN Reason: LINE FLUSH Review of Systems Constitutional: no weight loss, no weight gain Ears, nose, mouth and throat: no sinus pressure, no sinus pain Cardiovascular: chest pain, shortness of breath, dyspnea on exertion Respiratory: shortness of breath, dyspnea on exertion Gastrointestinal: no abdominal pain, no nausea, no vomiting Musculoskeletal: no neck stiffness, no neck pain, no shooting arm pain Integumentary: no rash, no pruritis, no redness Neurological: no head injury, no transient paralysis Psychiatric: no anxiety, no memory loss Endocrine: no cold intolerance, no heat intolerance Hematologic/Lymphatic: no easy bruising, no easy bleeding Physical Examination Vital Signs Temp Pulse Resp BP Pulse Ox 97.8 F 140 H 24 140/92 95 03/29/22 14:26 03/29/22 14:26 03/29/22 14:26 03/29/22 14:26 03/29/22 14:26 General appearance: no acute distress HEENT: Positive: PERRL Neck: Positive: trachea midline Cardiac: Positive: Reg Rate and Rhythm Lungs: Positive: Normal Breath Sounds Neuro: Positive: Grossly Intact Abdomen: Positive: Soft, Active Bowel Sounds Skin: Negative: Rash, Suspicious Lesions, Ulceration Extremities: Present: upper extr. pulses. Absent: edema Results 03/29/22 15:49 03/30/22 01:44 Cardiac Enzymes 03/29/22 03/29/22 Range/Units 15:49 15:49 AST 217 H (5-40) units/L CK-MB (CK-2) 5.1 H (0.0-4.0) ng/mL Coagulation 03/29/22 Range/Units 15:49 PT 15.2 H (12.2-14.9) Sec. INR 1.08 (0.87-1.13) Lipids 03/29/22 Range/Units 15:49 Triglycerides 168 H (2-149) mg/dL Cholesterol 190 (50-199) mg/dL HDL Cholesterol 52 (40-59) mg/dL Cholesterol/HDL Ratio 3.65 % CBC 03/29/22 Range/Units 15:49 WBC 8.1 (4.5-11.0) K/mm3 RBC 4.77 (3.65-5.03) M/mm3 Hgb 15.5 H (10.1-14.3) gm/dl Hct 46.1 H (30.3-42.9) % Plt Count 95 L (140-440) K/mm3 Lymph # (Auto) 1.6 (1.2-5.4) K/mm3 [place] # (Auto) 0.6 (0.0-0.8) K/mm3 Eos # (Auto) 0.0 (0.0-0.4) K/mm3 Baso # (Auto) 0.0 (0.0-0.1) K/mm3 Comprehensive Metabolic Panel 03/29/22 03/29/22 03/30/22 Range/Units 15:49 20:26 01:44 Sodium 133 L 135 L 136 L (137-145) mmol/L Potassium 5.2 H 4.5 4.5 (3.6-5.0) mmol/L Chloride 95.0 L 99.2 103.4 (98-107) mmol/L Carbon Dioxide 13 L 13 L 14 L (22-30) mmol/L BUN 12 14 16 (7-17) mg/dL Creatinine 1.3 H 1.2 1.0 (0.6-1.2) mg/dL Glucose 574 H* 399 H 196 H (65-100) mg/dL Calcium 9.3 8.9 9.2 (8.4-10.2) mg/dL AST 217 H (5-40) units/L ALT 206 H (7-56) units/L Alkaline Phosphatase 79 (35-129) units/L Total Protein 7.2 (6.3-8.2) g/dL Albumin 4.2 (3.9-5) g/dL - Imaging and Cardiology Echo: pending EKG interpretations - Telemetry EKG Rhythm: Sinus Tachycardia - EKG Sinus rhythms and dysrhythmias: sinus tachycardia Repolarization changes or abnormalities: nonspecific abnormality, ST segment, and/or T wave Myocardial infarction: inferior MS (old age inde Assessment and Plan Patient is a 46-year-old female with a past medical history of anxiety who presented to the ED yesterday with a complaint of fatigue and shortness of breath x3 days DKA NSTEMI suspect type II Metabolic acidosis Hyponatremia Hyperkalemia Obesity Plan: EKG shows sinus tach 133 with inferior infarct age indeterminate. No acute ischemic changes. Troponin is noted to be elevated but downtrending 0.16-> 0.046. Patient currently chest pain-free and states she has chest tightness associated with anxiety Suspect NSTEMI type II in setting of DKA Echo pending Patient for Lexiscan MPI stress test in the a.m. Patient to be n.p.o. after midnight Plan of care discussed with patient who verbalized understanding and acknowle dgment Patient in conjunction with Dr. Lynn who agrees with this plan of care - Patient Problems (1) DKA (diabetic ketoacidosis) Current Visit: Yes Status: Acute (2) Diabetes mellitus, new onset Current Visit: Yes Status: Acute (3) Thrombocytopenia Current Visit: Yes Status: Acute (4) Hyperkalemia Current Visit: Yes Status: Acute (5) Hyponatremia Current Visit: Yes Status: Acute (6) Metabolic acidosis Current Visit: Yes Status: Acute (7) Elevated troponin Current Visit: Yes Status: Acute
--- NOTE | 2022-03-30 12:54 | Consultation ---
History of Present Illness - Reason for Consult Consult date: 03/30/22 Past History Past Medical History: other (anxiety) Past Surgical History: Social history: smoking Family history: CAD, cancer, hypertension Medications and Allergies Allergies Allergy/AdvReac Type Severity Reaction Status Date / Time No Known Allergies Allergy Unverified 03/29/22 14:51 Active Meds: Active Medications Dextrose (Dextrose 50% In Water (25gm) 50 Ml Syringe) 0 ml IV Q30MIN PRN; Protocol PRN Reason: Hypoglycemia Insulin Human Regular 100 (units/ Sodium Chloride) 100 mls @ 1 mls/hr IV TITR J LUIS; Protocol Last Titration: 03/30/22 06:42 Dose: 2.5 units/hr, 2.5 mls/hr Potassium Chloride/Dextrose/Sod Cl (D5w/0.45% Nacl/Kcl 20 Meq) 20 meq in 1,000 mls @ 125 mls/hr IV DIRECT J LUIS Potassium Chloride (Kcl 10meq/100ml) 10 meq in 100 mls @ 100 mls/hr IV Q1H PRN PRN Reason: LOW Potassium Levels Ibuprofen (Ibuprofen 600 Mg Tab) 600 mg PO Q6H PRN PRN Reason: Pain, Mild (1-3) Morphine Sulfate (Morphine 2 Mg/1 Ml Inj) 2 mg IV Q4H PRN PRN Reason: Pain, Moderate (4-6) Sodium Chloride (Sodium Chloride 0.9% 10 Ml Flush Syringe) 10 ml IV BID J LUIS Last Admin: 03/30/22 11:22 Dose: 10 ml Sodium Chloride (Sodium Chloride 0.9% 10 Ml Flush Syringe) 10 ml IV PRN PRN PRN Reason: LINE FLUSH Exam - Constitutional Vitals: Temp Pulse Resp BP Pulse Ox 97.8 F 119 H 28 H 109/80 100 03/29/22 14:26 03/30/22 11:46 03/30/22 11:46 03/30/22 11:46 03/30/22 11:46 Results - Labs CBC & Chem 7: 03/29/22 15:49 03/30/22 01:44 Labs: Abnormal lab results 03/29/22 03/29/22 03/29/22 Range/Units 15:29 15:49 15:49 Hgb 15.5 H (10.1-14.3) gm/dl Hct 46.1 H (30.3-42.9) % RDW 13.0 L (13.2-15.2) % Plt Count 95 L (140-440) K/mm3 Seg Neutrophils % 73.3 H (40.0-70.0) % PT (12.2-14.9) Sec. VBG pH (7.320-7.420) Sodium 133 L (137-145) mmol/L Potassium 5.2 H (3.6-5.0) mmol/L Chloride 95.0 L (98-107) mmol/L Carbon Dioxide 13 L (22-30) mmol/L Creatinine 1.3 H (0.6-1.2) mg/dL Glucose 574 H* (65-100) mg/dL POC Glucose 466 H (70-105) mg/dL Phosphorus (2.5-4.5) mg/dL AST 217 H (5-40) units/L ALT 206 H (7-56) units/L Total Creatine Kinase (30-135) units/L CK-MB (CK-2) (0.0-4.0) ng/mL Troponin T (0.00-0.029) ng/mL Triglycerides (2-149) mg/dL 03/29/22 03/29/22 03/29/22 Range/Units 15:49 15:49 15:49 Hgb (10.1-14.3) gm/dl Hct (30.3-42.9) % RDW (13.2-15.2) % Plt Count (140-440) K/mm3 Seg Neutrophils % (40.0-70.0) % PT 15.2 H (12.2-14.9) Sec. VBG pH 7.213 L (7.320-7.420) Sodium (137-145) mmol/L Potassium (3.6-5.0) mmol/L Chloride (98-107) mmol/L Carbon Dioxide (22-30) mmol/L Creatinine (0.6-1.2) mg/dL Glucose (65-100) mg/dL POC Glucose (70-105) mg/dL Phosphorus 6.80 H (2.5-4.5) mg/dL AST (5-40) units/L ALT (7-56) units/L Total Creatine Kinase 146 H (30-135) units/L CK-MB (CK-2) 5.1 H (0.0-4.0) ng/mL Troponin T 0.167 H* (0.00-0.029) ng/mL Triglycerides 168 H (2-149) mg/dL 03/29/22 03/29/22 03/29/22 Range/Units 19:10 20:16 20:26 Hgb (10.1-14.3) gm/dl Hct (30.3-42.9) % RDW (13.2-15.2) % Plt Count (140-440) K/mm3 Seg Neutrophils % (40.0-70.0) % PT (12.2-14.9) Sec. VBG pH (7.320-7.420) Sodium 135 L (137-145) mmol/L Potassium (3.6-5.0) mmol/L Chloride (98-107) mmol/L Carbon Dioxide 13 L (22-30) mmol/L Creatinine (0.6-1.2) mg/dL Glucose 399 H (65-100) mg/dL POC Glucose 481 H 440 H (70-105) mg/dL Phosphorus (2.5-4.5) mg/dL AST (5-40) units/L ALT (7-56) units/L Total Creatine Kinase (30-135) units/L CK-MB (CK-2) (0.0-4.0) ng/mL Troponin T (0.00-0.029) ng/mL Triglycerides (2-149) mg/dL 03/29/22 03/29/22 03/29/22 Range/Units 21:15 22:20 23:26 Hgb (10.1-14.3) gm/dl Hct (30.3-42.9) % RDW (13.2-15.2) % Plt Count (140-440) K/mm3 Seg Neutrophils % (40.0-70.0) % PT (12.2-14.9) Sec. VBG pH (7.320-7.420) Sodium (137-145) mmol/L Potassium (3.6-5.0) mmol/L Chloride (98-107) mmol/L Carbon Dioxide (22-30) mmol/L Creatinine (0.6-1.2) mg/dL Glucose (65-100) mg/dL POC Glucose 299 H 363 H 202 H (70-105) mg/dL Phosphorus (2.5-4.5) mg/dL AST (5-40) units/L ALT (7-56) units/L Total Creatine Kinase (30-135) units/L CK-MB (CK-2) (0.0-4.0) ng/mL Troponin T (0.00-0.029) ng/mL Triglycerides (2-149) mg/dL 03/30/22 03/30/22 03/30/22 Range/Units 00:35 01:31 01:44 Hgb (10.1-14.3) gm/dl Hct (30.3-42.9) % RDW (13.2-15.2) % Plt Count (140-440) K/mm3 Seg Neutrophils % (40.0-70.0) % PT (12.2-14.9) Sec. VBG pH (7.320-7.420) Sodium 136 L (137-145) mmol/L Potassium (3.6-5.0) mmol/L Chloride (98-107) mmol/L Carbon Dioxide 14 L (22-30) mmol/L Creatinine (0.6-1.2) mg/dL Glucose 196 H (65-100) mg/dL POC Glucose 177 H 162 H (70-105) mg/dL Phosphorus (2.5-4.5) mg/dL AST (5-40) units/L ALT (7-56) units/L Total Creatine Kinase (30-135) units/L CK-MB (CK-2) (0.0-4.0) ng/mL Troponin T (0.00-0.029) ng/mL Triglycerides (2-149) mg/dL 03/30/22 03/30/22 03/30/22 Range/Units 03:19 05:29 06:42 Hgb (10.1-14.3) gm/dl Hct (30.3-42.9) % RDW (13.2-15.2) % Plt Count (140-440) K/mm3 Seg Neutrophils % (40.0-70.0) % PT (12.2-14.9) Sec. VBG pH (7.320-7.420) Sodium (137-145) mmol/L Potassium (3.6-5.0) mmol/L Chloride (98-107) mmol/L Carbon Dioxide (22-30) mmol/L Creatinine (0.6-1.2) mg/dL Glucose (65-100) mg/dL POC Glucose 152 H 188 H 177 H (70-105) mg/dL Phosphorus (2.5-4.5) mg/dL AST (5-40) units/L ALT (7-56) units/L Total Creatine Kinase (30-135) units/L CK-MB (CK-2) (0.0-4.0) ng/mL Troponin T (0.00-0.029) ng/mL Triglycerides (2-149) mg/dL 03/30/22 03/30/22 Range/Units 07:30 11:45 Hgb (10.1-14.3) gm/dl Hct (30.3-42.9) % RDW (13.2-15.2) % Plt Count (140-440) K/mm3 Seg Neutrophils % (40.0-70.0) % PT (12.2-14.9) Sec. VBG pH (7.320-7.420) Sodium (137-145) mmol/L Potassium (3.6-5.0) mmol/L Chloride (98-107) mmol/L Carbon Dioxide (22-30) mmol/L Creatinine (0.6-1.2) mg/dL Glucose (65-100) mg/dL POC Glucose 141 H (70-105) mg/dL Phosphorus (2.5-4.5) mg/dL AST (5-40) units/L ALT (7-56) units/L Total Creatine Kinase (30-135) units/L CK-MB (CK-2) (0.0-4.0) ng/mL Troponin T 0.046 H D (0.00-0.029) ng/mL Triglycerides (2-149) mg/dL Assessment and Plan NPO Continue insulin drip Needs repeat labs to assess anion Gap IVF's
[2022-03-30] MEDS: ALPRAZolam 0.25 MG TAB PO PRN (13:12)
[2022-03-30 23:26] LABS: Calcium 9.6 mg/dL (8.4-10.2)
[2022-03-30] MEDS ORDERED: SODIUM POLYSTYRENE 15 GM/60 ML ORAL LIQD PO ONE (23:55)
[2022-03-30] MEDS ORDERED: SODIUM BICARB 8.4% 50 MEQ/50 ML SYRINGE IV ONE (23:56)
[2022-03-31] MEDS ORDERED: CALC GLUCONATE 1GM/NS 100 ML 1 GM/100 ML BAG IV ONE (00:05)
[2022-03-31 03:50] LABS: Basophils # (Auto) 0.1 K/mm3 (0.0-0.1); Basophils % (Auto) 0.4 % (0.0-1.8); Eosinophils % (Auto) 0.1 % (0.0-4.3); Hematocrit 44.7 % (30.3-42.9); Hemoglobin 14.8 gm/dl (10.1-14.3); Lymphocytes # (Auto) 1.8 K/mm3 (1.2-5.4); Lymphocytes % (Auto) 13.2 % (13.4-35.0); Mean Corpuscular HGB Conc 33 % (30-34); Mean Corpuscular Volume 96 fl (79-97); Monocytes # (Auto) 0.8 K/mm3 (0.0-0.8); Monocytes % (Auto) 5.8 % (0.0-7.3); Red Blood Count 4.66 M/mm3 (3.65-5.03); Red Cell Distribution Width 13.2 % (13.2-15.2)
[2022-03-31 04:11] LABS: BUN/Creatinine Ratio 30; Blood Urea Nitrogen 30 mg/dL (7-17); Calcium 9.6 mg/dL (8.4-10.2); Hemolysis Index 161
[2022-03-31 04:14] LABS: Platelet Count 71 K/mm3 (140-440)
[2022-03-31] MEDS ORDERED: REGADENOSON 0.4 MG/5 ML INJ IV ONE (08:37)
[2022-03-31] MEDS ORDERED: DEXTROSE 50% IN WATER (25GM) 50 ML SYRINGE IV PRN (09:28)
[2022-03-31] MEDS ORDERED: POTASSIUM CHLORIDE 10 MEQ 10 MEQ/100 ML BAG IV PRN ×2 (09:28)
[2022-03-31] MEDS ORDERED: D5W/0.45% NACL/KCL 20 MEQ 20 MEQ/1,000 ML BAG IV SCH (10:00)
[2022-03-31] MEDS ORDERED: INSULIN REGULAR, HUMAN 100 UNITS in SODIUM CHLORIDE 0.9% 99 ML IV SCH (10:00)
[2022-03-31 10:28] LABS: BUN/Creatinine Ratio 31; Blood Urea Nitrogen 28 mg/dL (7-17); Calcium 9.2 mg/dL (8.4-10.2); Hemolysis Index 5
[2022-03-31] MEDS: ALPRAZolam 0.25 MG TAB PO PRN ×2 (11:38→22:02)
[2022-03-31] MEDS: D5W/0.45% NACL 1,000 ML IV SCH ×2 (11:41→21:49)
--- NOTE | 2022-03-31 12:03 | Progress Note ---
Assessment and Plan Assessment and plan: History of present illness: 46-year-old -[place] female with no significant past medical history except for anxiety comes in for generalized weakness and shortness of breath for about 10 to 14 days. No vomiting or diarrhea. Some nausea present. Patient called EMS. Blood glucose Accu-Chek was very high above 500. Emergency room course :high blood glucose level and increased anion gap--- new onset diabetes and hyperosmolar state for which patient is being admitted to ICU for IV insulin drip and IV fluids . Other than mild anxiety patient does not have any signi ficant past medical history. No fever or chills. No recent increased travel. Hospital Course: 03/31: AG remains open: 21. Continue insulin gtt/IVF per dka protocol. K noted to be elevated, fluids modified to D5w/1/2NS. D/w Cardiology, right atrial mass visualized on TTE. Will need KRISTIE on sunday. NM stress canceled. Assessment and Plan: #Diabetic ketoacidosis - A , BG 574, now 177, ketonuria, VB.2 - weakness, states she is compliant with meds. - DKA protocol: IV insulin, IVF. - NPO until AG closes - once AG closed (< 14), can start lantus 10 mg subq. Please run insulin gtt 1hr after lantus admin. Can initiate diabetic diet as well - accuchecks q1 hr until AG closed - BMP q4hr until AG closed CCM consultation #Chest pain -Endorses chest pressure, shortness of breath, diaphoresis. Denies jaw pain or shoulder pain. Risk factors: Diabetic, occasional smoker, overweight, family history of diabetes and hypertension -EKG sinus tachycardia, rate 133. no st elevation or depression noted. -Troponin elevation 0.167, trend every 6 hour Cardiology consultation Suspect troponin elevation is type II however would consider Lexiscan given symptomology and risk factors. #Hyperkalemia -K5.2 on admission, downtrending -trend on serial bmp #Pseudohyponatremia - 2/2 DKA #Metabolic acidosis - 2/2 DKA #Type 2 Diabetes with Hyperglycemia - newly dx diabetic. not on medication - hemoglobin A1c ordered - home regimen: denies - current regimen: Insulin gtt - blood glucose goal 140-180 while inpatient - continue to monitor #Morbid Obesity - BMI 33.7 - Counseled patient on the importance of weight loss, incorporating exercise, and dietary changes (lean meats, fresh fruits and vegetables, and water intake). Patient expresses understanding. - Time: +15 min The high probability of a clinically significant, sudden or life threatening deterioration of the [multi] system(s) required my full and direct attention, intervention and personal management. The aggregate critical care time was [60] minutes. This time is in addition to time spent performing reported procedures but includes the following: [x] Data Review and interpretation [x] Patient assessment and monitoring of vital signs [x] Documentation [x] Medication orders and management History Interval history: Patient seen and evaluated. No acute complaints. Discussed care plan for today. Hospitalist Physical - Physical exam Narrative exam: Physical Exam: VITAL SIGNS: Reviewed. GENERAL: The patient appears normally developed, Vital signs as documented. Obese HEAD: No signs of head trauma. EYES: Pupils are equal. Extraocular motions intact. EARS: Hearing grossly intact. MOUTH: Oropharynx is normal. NECK: No adenopathy, no JVD. CHEST: Chest with clear breath sounds bilaterally. No wheezes, rales, or rhonchi. CARDIAC: Regular rate and rhythm. S1 and S2, without murmurs, gallops, or rubs. VASCULAR: No Edema. Peripheral pulses normal and equal in all extremities. ABDOMEN: Soft, non tender and non distended. No rebound or guarding, and no masses palpated. Bowel Sounds normal. MUSCULOSKELETAL: Good range of motion of all major joints. Extremities without clubbing, cyanosis or edema. NEUROLOGIC EXAM: Alert and oriented x 4. no focal sensory or strength deficits. PSYCHIATRIC: Mood normal. SKIN: detail exam as documented in skin assessment - Constitutional Vitals: Temp Pulse Resp BP Pulse Ox 97.8 F 94 H 16 134/99 96 03/29/22 14:26 03/31/22 08:37 03/31/22 08:37 03/31/22 08:37 03/31/22 08:37 General appearance: Present: no acute distress HEART Score - HEART Score Troponin: Troponin T 0.033 ng/mL (0.00-0.029) H D 03/30/22 22:19 Results - Labs CBC & Chem 7: 03/31/22 03:05 03/31/22 09:43 Labs: Laboratory Last Values WBC 14.0 K/mm3 (4.5-11.0) H 03/31/22 03:05 RBC 4.66 M/mm3 (3.65-5.03) 03/31/22 03:05 Hgb 14.8 gm/dl (10.1-14.3) H 03/31/22 03:05 Hct 44.7 % (30.3-42.9) H 03/31/22 03:05 MCV 96 fl (79-97) 03/31/22 03:05 MCH 32 pg (28-32) 03/31/22 03:05 MCHC 33 % (30-34) 03/31/22 03:05 RDW 13.2 % (13.2-15.2) 03/31/22 03:05 Plt Count 71 K/mm3 (140-440) L 03/31/22 03:05 Lymph % (Auto) 13.2 % (13.4-35.0) L 03/31/22 03:05 [place] % (Auto) 5.8 % (0.0-7.3) 03/31/22 03:05 Eos % (Auto) 0.1 % (0.0-4.3) 03/31/22 03:05 Baso % (Auto) 0.4 % (0.0-1.8) 03/31/22 03:05 Lymph # (Auto) 1.8 K/mm3 (1.2-5.4) 03/31/22 03:05 [place] # (Auto) 0.8 K/mm3 (0.0-0.8) 03/31/22 03:05 Eos # (Auto) 0.0 K/mm3 (0.0-0.4) 03/31/22 03:05 Baso # (Auto) 0.1 K/mm3 (0.0-0.1) 03/31/22 03:05 Seg Neutrophils % 80.5 % (40.0-70.0) H 03/31/22 03:05 Seg Neutrophils # 11.2 K/mm3 (1.8-7.7) H 03/31/22 03:05 PT 15.2 Sec. (12.2-14.9) H 03/29/22 15:49 INR 1.08 (0.87-1.13) 03/29/22 15:49 VBG pH 7.213 (7.320-7.420) L 03/29/22 15:49 Sodium 138 mmol/L (137-145) 03/31/22 09:43 Potassium 4.3 mmol/L (3.6-5.0) D 03/31/22 09:43 Chloride 100.6 mmol/L (98-107) 03/31/22 09:43 Carbon Dioxide 17 mmol/L (22-30) L 03/31/22 09:43 Anion Gap 25 mmol/L 03/31/22 09:43 BUN 28 mg/dL (7-17) H 03/31/22 09:43 Creatinine 0.9 mg/dL (0.6-1.2) 03/31/22 09:43 Estimated GFR > 60 ml/min 03/31/22 09:43 BUN/Creatinine Ratio 31 % 03/31/22 09:43 Glucose 221 mg/dL (65-100) H 03/31/22 09:43 POC Glucose 206 mg/dL (70-105) H 03/31/22 08:21 Hemoglobin A1c 10.1 % (4-6) H 03/30/22 12:05 Calcium 9.2 mg/dL (8.4-10.2) 03/31/22 09:43 Phosphorus 4.00 mg/dL (2.5-4.5) 03/31/22 09:43 Magnesium 1.80 mg/dL (1.7-2.3) 03/31/22 09:43 Total Bilirubin 0.50 mg/dL (0.1-1.2) 03/29/22 15:49 AST 217 units/L (5-40) H 03/29/22 15:49 ALT 206 units/L (7-56) H 03/29/22 15:49 Alkaline Phosphatase 79 units/L (35-129) 03/29/22 15:49 Total Creatine Kinase 146 units/L (30-135) H 03/29/22 15:49 CK-MB (CK-2) 5.1 ng/mL (0.0-4.0) H 03/29/22 15:49 CK-MB (CK-2) Rel Index 3.4 (0-4) 03/29/22 15:49 Troponin T 0.033 ng/mL (0.00-0.029) H D 03/30/22 22:19 Total Protein 7.2 g/dL (6.3-8.2) 03/29/22 15:49 Albumin 4.2 g/dL (3.9-5) 03/29/22 15:49 Albumin/Globulin Ratio 1.4 % 03/29/22 15:49 Triglycerides 168 mg/dL (2-149) H 03/29/22 15:49 Cholesterol 190 mg/dL (50-199) 03/29/22 15:49 LDL Cholesterol Direct 127 mg/dL (50-130) 03/29/22 15:49 HDL Cholesterol 52 mg/dL (40-59) 03/29/22 15:49 Cholesterol/HDL Ratio 3.65 % 03/29/22 15:49 TSH 1.120 mlU/mL (0.270-4.200) 03/29/22 15:49 Free T4 1.42 ng/dL (0.76-1.46) 03/29/22 15:49 HCG, Qual Negative (Negative) 03/29/22 15:49 Urine Color Yellow (Yellow) 03/30/22 06:43 Urine Turbidity Slightly-cloudy (Clear) 03/30/22 06:43 Urine pH 5.0 (5.0-7.0) 03/30/22 06:43 Ur Specific [place] 1.020 (1.003-1.030) 03/30/22 06:43 Urine Protein 100 mg/dl mg/dL (Negative) 03/30/22 06:43 Urine Glucose (UA) >=500 mg/dL (Negative) 03/30/22 06:43 Urine Ketones 20 mg/dL (Negative) 03/30/22 06:43 Urine Blood Mod (Negative) 03/30/22 06:43 Urine Nitrite Neg (Negative) 03/30/22 06:43 Urine Bilirubin Neg (Negative) 03/30/22 06:43 Urine Urobilinogen 2.0 mg/dL (<2.0) 03/30/22 06:43 Ur Leukocyte Esterase Neg (Negative) 03/30/22 06:43 Urine WBC (Auto) 4.0 /HPF (0.0-6.0) 03/30/22 06:43 Urine RBC (Auto) 9.0 /HPF (0.0-6.0) 03/30/22 06:43 U Epithel Cells (Auto) 9.0 /HPF (0-13.0) 03/30/22 06:43 Urine Bacteria (Auto) 1+ /HPF (Negative) 03/30/22 06:43 Hyaline Casts 54 /LPF 03/30/22 06:43 Urine Mucus Few /HPF 03/30/22 06:43 Urine Opiates Screen Negative 03/30/22 06:43 Urine Methadone Screen Negative 03/30/22 06:43 Ur Barbiturates Screen Negative 03/30/22 06:43 Ur Phencyclidine Scrn Negative 03/30/22 06:43 Ur Amphetamines Screen Negative 03/30/22 06:43 U Benzodiazepines Scrn Negative 03/30/22 06:43 Urine Cocaine Screen Negative 03/30/22 06:43 U Marijuana (THC) Screen Negative 03/30/22 06:43 Drugs of Abuse Note Disclamer 03/30/22 06:43 Active Medications - Current Medications Current Medications: Generic Name Dose Route Start Last Admin Trade Name Freq PRN Reason Stop Dose Admin Alprazolam 0.25 mg 03/30/22 13:00 03/31/22 11:38 Alprazolam 0.25 Mg Tab PO 0.25 mg Q8H PRN Administration Anxiety Dextrose 0 ml 03/31/22 09:28 Dextrose 50% In Water (25gm) 50 Ml Syringe IV Q30MIN PRN Hypoglycemia Protocol Dextrose/Sodium Chloride 1,000 mls @ 125 mls/hr 03/31/22 10:00 03/31/22 11:41 D5/0.45ns IV 125 mls/hr DIRECT J LUIS Administration Insulin Human Regular 100 100 mls @ 1 mls/hr 03/31/22 10:00 03/31/22 11:33 units/ Sodium Chloride IV 3 units/hr TITR J LUIS 3 mls/hr Administration Protocol 1 UNITS/HR Potassium Chloride 10 meq in 100 mls @ 100 mls/hr 03/31/22 09:28 Kcl 10meq/100ml IV Q1H PRN LOW Potassium Levels Potassium Chloride 10 meq in 100 mls @ 100 mls/hr 03/31/22 09:28 Kcl 10meq/100ml IV Q1H PRN LOW Potassium Levels Ibuprofen 600 mg 03/29/22 17:42 Ibuprofen 600 Mg Tab PO Q6H PRN Pain, Mild (1-3) Morphine Sulfate 2 mg 03/29/22 17:42 Morphine 2 Mg/1 Ml Inj IV Q4H PRN Pain, Moderate (4-6) Sodium Chloride 10 ml 03/29/22 22:00 03/31/22 10:04 Sodium Chloride 0.9% 10 Ml Flush Syringe IV 10 ml BID J LUIS Administration Sodium Chloride 10 ml 03/29/22 17:42 Sodium Chloride 0.9% 10 Ml Flush Syringe IV PRN PRN LINE FLUSH Nutrition/Malnutrition Assess - Dietary Evaluation Nutrition/Malnutrition Findings: Nutrition Notes Start: 03/30/22 12:49 Freq: Status: Active Protocol: Document 03/30/22 12:49 CORY (Rec: 03/30/22 12:58 CORY [id number]) Nutrition Notes Need for Assessment generated from: MD Order,Education Initial or Follow up Brief Note Current Diagnosis Diabetes Other Pertinent Diagnosis DKA, Chest Pain, Elevated Troponin, Metabolic Acidosis, Anxiety. Current Diet Consistent Carbohydrates Diet (since B 03/30), NPO (from 00:01). Height 5 ft 3 in Weight 86.183 kg [place] Body Weight (kg) 52.27 BMI 33.6 Weight change and time frame None provided at admission. Weight Status Obese Subjective/Other Information RD consult for nutrition education assessment. Pt currently on Consistent Carbohydrates Diet, but will be NPO after midnight, no reports available on Pt's PO intake of meals at the time, will assess at F/U. Pt is on Nasal Cannula, O2 saturation @ 98%, according to Vital Signs notes. Pt still in critical condition , not a candidate for Nutrition Education at the time, will assess feasibility on F/U. Percent of energy/protein needs met: Prescribed Consistent Carbohydrates Diet provides for energy/protein needs (2, 061 Kcal/91 g) during LOS. Nutrition Intervention Follow-Up By: 04/06/22 Additional Comments Nutrition education will be provided at F/U, if feasible. Continue monitoring food tolerance, %PO intake of meals , and BM.
--- NOTE | 2022-03-31 12:42 | Progress Note ---
Assessment and Plan 03/31/22: Continue insulin drip until gap closes. KRISTIE next week NPO Continue insulin drip Needs repeat labs to assess anion Gap IVF's Subjective Date of service: 03/31/22 Interval history: Found to have a right atrial mass. Needs KRISTIE. Still on insulin drip. Objective - Constitutional Vitals: Vital Signs - 12hr 03/31/22 03/31/22 00:46 08:37 Pulse Rate 94 H Respiratory 32 H 16 Rate Blood Pressure 135/95 Blood Pressure 134/99 [Left] O2 Sat by Pulse 81 L 96 Oximetry - Labs CBC & Chem 7: 03/31/22 03:05 03/31/22 09:43 Labs: Abnormal lab results 03/30/22 03/30/22 03/30/22 Range/Units 12:05 19:11 22:19 WBC (4.5-11.0) K/mm3 Hgb (10.1-14.3) gm/dl Hct (30.3-42.9) % Plt Count (140-440) K/mm3 Lymph % (Auto) (13.4-35.0) % Seg Neutrophils % (40.0-70.0) % Seg Neutrophils # (1.8-7.7) K/mm3 Sodium (137-145) mmol/L Potassium (3.6-5.0) mmol/L Carbon Dioxide (22-30) mmol/L BUN (7-17) mg/dL Creatinine (0.6-1.2) mg/dL Glucose (65-100) mg/dL POC Glucose 118 H (70-105) mg/dL Hemoglobin A1c 10.1 H (4-6) % Troponin T 0.033 H D (0.00-0.029) ng/mL 03/30/22 03/31/22 03/31/22 Range/Units 22:19 03:05 03:05 WBC 14.0 H (4.5-11.0) K/mm3 Hgb 14.8 H (10.1-14.3) gm/dl Hct 44.7 H (30.3-42.9) % Plt Count 71 L (140-440) K/mm3 Lymph % (Auto) 13.2 L (13.4-35.0) % Seg Neutrophils % 80.5 H (40.0-70.0) % Seg Neutrophils # 11.2 H (1.8-7.7) K/mm3 Sodium 135 L (137-145) mmol/L Potassium 6.6 H* D 5.6 H (3.6-5.0) mmol/L Carbon Dioxide 17 L 18 L (22-30) mmol/L BUN 30 H 30 H (7-17) mg/dL Creatinine 1.3 H (0.6-1.2) mg/dL Glucose 171 H 208 H (65-100) mg/dL POC Glucose (70-105) mg/dL Hemoglobin A1c (4-6) % Troponin T (0.00-0.029) ng/mL 03/31/22 03/31/22 Range/Units 08:21 09:43 WBC (4.5-11.0) K/mm3 Hgb (10.1-14.3) gm/dl Hct (30.3-42.9) % Plt Count (140-440) K/mm3 Lymph % (Auto) (13.4-35.0) % Seg Neutrophils % (40.0-70.0) % Seg Neutrophils # (1.8-7.7) K/mm3 Sodium (137-145) mmol/L Potassium (3.6-5.0) mmol/L Carbon Dioxide 17 L (22-30) mmol/L BUN 28 H (7-17) mg/dL Creatinine (0.6-1.2) mg/dL Glucose 221 H (65-100) mg/dL POC Glucose 206 H (70-105) mg/dL Hemoglobin A1c (4-6) % Troponin T (0.00-0.029) ng/mL Medications & Allergies - Medications Allergies/Adverse Reactions: Allergies No Known Allergies Allergy (Unverified 03/29/22 14:51) Active Medications: Generic Name Dose Route Start Last Admin Trade Name Freq PRN Reason Stop Dose Admin Alprazolam 0.25 mg 03/30/22 13:00 03/31/22 11:38 Alprazolam 0.25 Mg Tab PO 0.25 mg Q8H PRN Administration Anxiety Dextrose 0 ml 03/31/22 09:28 Dextrose 50% In Water (25gm) 50 Ml Syringe IV Q30MIN PRN Hypoglycemia Protocol Dextrose/Sodium Chloride 1,000 mls @ 125 mls/hr 03/31/22 10:00 03/31/22 11:41 D5/0.45ns IV 125 mls/hr DIRECT J LUIS Administration Insulin Human Regular 100 100 mls @ 1 mls/hr 03/31/22 10:00 03/31/22 11:33 units/ Sodium Chloride IV 3 units/hr TITR J LUIS 3 mls/hr Administration Protocol 1 UNITS/HR Potassium Chloride 10 meq in 100 mls @ 100 mls/hr 03/31/22 09:28 Kcl 10meq/100ml IV Q1H PRN LOW Potassium Levels Potassium Chloride 10 meq in 100 mls @ 100 mls/hr 03/31/22 09:28 Kcl 10meq/100ml IV Q1H PRN LOW Potassium Levels Ibuprofen 600 mg 03/29/22 17:42 Ibuprofen 600 Mg Tab PO Q6H PRN Pain, Mild (1-3) Morphine Sulfate 2 mg 03/29/22 17:42 Morphine 2 Mg/1 Ml Inj IV Q4H PRN Pain, Moderate (4-6) Sodium Chloride 10 ml 03/29/22 22:00 03/31/22 10:04 Sodium Chloride 0.9% 10 Ml Flush Syringe IV 10 ml BID J LUIS Administration Sodium Chloride 10 ml 03/29/22 17:42 Sodium Chloride 0.9% 10 Ml Flush Syringe IV PRN PRN LINE FLUSH HEART Score - HEART Score Troponin: Troponin T 0.033 ng/mL (0.00-0.029) H D 03/30/22 22:19
--- NOTE | 2022-03-31 12:43 | Progress Note ---
Assessment and Plan Patient is a 46-year-old female with a past medical history of anxiety who presented to the ED yesterday with a complaint of fatigue and shortness of breath x3 days DKA Bilateral PE NSTEMI suspect type II Metabolic acidosis Hyponatremia Hyperkalemia Thrombocytopenia Obesity Echo 03/30/2022- EF50 to 55%. Mild diastolic dysfunction is present impaired relaxation pattern. Right ventricle is mildly dilated. Septum is flattened in diastole consistent with RV volume overload. Right ventricular systolic function is normal. Mobile echo bright density present in right atrium. No aortic regurgitation. No mitral valve regurgitation. Trace tricuspid regurgitation. Trace pulmonic regurgitation Plan: EKG shows sinus tach 133 with inferior infarct age indeterminate. No acute ischemic changes. Troponin is noted to be elevated but downtrending 0.16-> 0.04->0.03. Patient currently chest pain-free and states she has chest tightness associated with anxiety Suspect NSTEMI type II in setting of DKA Patient echo showed mobile echo bright density however CTA chest showed large bilateral PE. Vascular consulted Lexiscan stress test canceled Due to patient's thrombocytopenia hesitant to initiate anticoagulation. Recommend heme-onc consult for anticoagulation regarding echo bright density on echo Plan of care discussed with patient who verbalized understanding and acknowledgment Patient in conjunction with Dr. Lynn who agrees with this plan of care - Patient Problems (1) DKA (diabetic ketoacidosis) Current Visit: Yes Status: Acute (2) Diabetes mellitus, new onset Current Visit: Yes Status: Acute (3) Thrombocytopenia Current Visit: Yes Status: Acute (4) Hyperkalemia Current Visit: Yes Status: Acute (5) Hyponatremia Current Visit: Yes Status: Acute (6) Metabolic acidosis Current Visit: Yes Status: Acute (7) Elevated troponin Current Visit: Yes Status: Acute Subjective Date of service: 03/31/22 Principal diagnosis: DKA Interval history: Patient resting in bed in no acute distress. Patient does report improvement in respiratory status Patient not on monitor Objective Vital Signs Pulse Resp BP BP Pulse Ox 03/31/22 08:37 94 H 16 134/99 96 03/31/22 00:46 32 H 135/95 81 L 03/31/22 00:30 35 H 132/109 99 03/31/22 00:16 25 H 132/109 100 03/31/22 00:00 110 H 29 H 133/99 99 03/30/22 23:45 132/109 92 03/30/22 20:45 132/109 95 03/30/22 20:30 132/109 100 03/30/22 20:16 132/109 96 03/30/22 20:00 132/109 97 03/30/22 19:46 118/77 87 03/30/22 19:30 118/77 95 03/30/22 19:16 118/77 98 03/30/22 19:00 118/77 84 03/30/22 18:45 133/87 100 03/30/22 18:30 99 03/30/22 18:16 99 03/30/22 18:00 68/48 98 03/30/22 17:46 92 03/30/22 17:30 100 03/30/22 17:16 97 03/30/22 17:00 100 03/30/22 16:46 68/48 03/30/22 16:30 68/48 99 03/30/22 16:16 68/48 98 03/30/22 16:04 111 H 18 98/69 100 03/30/22 16:00 90/52 94 03/30/22 15:46 90/52 86 03/30/22 15:30 90/52 03/30/22 15:16 90/52 100 03/30/22 15:13 15 100 03/30/22 15:00 90/52 100 03/30/22 14:46 98/69 79 L 03/30/22 14:30 98/69 98 03/30/22 14:16 98/69 96 03/30/22 14:05 117/90 99 03/30/22 13:16 33 H 117/90 03/30/22 13:00 40 H 117/90 100 03/30/22 12:46 30 H 117/90 36 L - Physical Examination General: No Apparent Distress HEENT: Positive: PERRL Neck: Positive: trachea midline Cardiac: Positive: Reg Rate and Rhythm Lungs: Positive: Normal Breath Sounds Neuro: Positive: Grossly Intact Abdomen: Positive: Soft, Active Bowel Sounds Skin: Negative: Rash, Suspicious Lesions, Ulceration Extremities: Present: upper extr. pulses. Absent: edema - Labs and Meds CBC 03/31/22 Range/Units 03:05 WBC 14.0 H (4.5-11.0) K/mm3 RBC 4.66 (3.65-5.03) M/mm3 Hgb 14.8 H (10.1-14.3) gm/dl Hct 44.7 H (30.3-42.9) % Plt Count 71 L (140-440) K/mm3 Lymph # (Auto) 1.8 (1.2-5.4) K/mm3 [place] # (Auto) 0.8 (0.0-0.8) K/mm3 Eos # (Auto) 0.0 (0.0-0.4) K/mm3 Baso # (Auto) 0.1 (0.0-0.1) K/mm3 Comprehensive Metabolic Panel 03/30/22 03/31/22 03/31/22 Range/Units 22:19 03:05 09:43 Sodium 135 L 138 138 (137-145) mmol/L Potassium 6.6 H* D 5.6 H 4.3 D (3.6-5.0) mmol/L Chloride 101.8 100.7 100.6 (98-107) mmol/L Carbon Dioxide 17 L 18 L 17 L (22-30) mmol/L BUN 30 H 30 H 28 H (7-17) mg/dL Creatinine 1.3 H 1.0 0.9 (0.6-1.2) mg/dL Glucose 171 H 208 H 221 H (65-100) mg/dL Calcium 9.6 9.6 9.2 (8.4-10.2) mg/dL - Imaging and Cardiology Echo: report reviewed KRISTIE: pending - Telemetry EKG Rhythm: Sinus Rhythm - EKG Sinus rhythms and dysrhythmias: sinus tachycardia Repolarization changes or abnormalities: nonspecific abnormality, ST segment, and/or T wave Myocardial infarction: inferior FL (old age inde
--- NOTE | 2022-03-31 12:58 | Cat Scan Report ---
CTA CHEST WITH CONTRAST INDICATION / CLINICAL INFORMATION: rule out PE. Shortness of breath TECHNIQUE: Axial CT images were obtained through the chest after injection of IV contrast. 3 plane IA P and/or 3D reconstructions were produced. All CT scans at this location are performed using CT dose reduction for ALARA by means of automated exposure control. COMPARISON: None available. FINDINGS: PULMONARY EMBOLUS: Positive. Most proximal level of embolus is Left Lobar Pulmonary Artery. Large bi lateral pulmonary emboli within the left lobe are and pulmonary artery with large filling defects wit hin both upper, right middle and lower lobar pulmonary arteries and segmental branches. THORACIC AORTA: No significant abnormality. HEART: Probable RV strain CORONARY ARTERY CALCIFICATION: Absent -- None. MEDIASTINUM / CONOR: No significant abnormality. PLEURA: Small right and tiny left pleural effusions. No pneumothorax. LUNGS: No acute air space or interstitial disease. ADDITIONAL FINDINGS: None. UPPER ABDOMEN: No acute findings. SKELETAL STRUCTURES: No significant osseous abnormality. IMPRESSION: 1. Large bilateral pulmonary emboli with probable RV strain 2. Small bilateral pleural effusions CRITICAL RESULT:PTE Time of Discovery (ANALYTICAL TECHNICIAN/CDT): 1145 Central time 03/31/2022 Time of Communication (ANALYTICAL TECHNICIAN/CDT): 11:51 AM Licensed Practitioner Receiving Report: Nurse Dupree Read-Back Performed: Yes. Signer Name: Ted Baron MD Signed: 03/31/2022 12:53 PM Workstation Name: [id number]
[2022-03-31] MEDS ORDERED: SODIUM CHLORIDE 0.9% 1000 ML 1,000 ML IV SCH (13:45)
[2022-03-31] MEDS ORDERED: HEPARIN 10,000 UNITS/10 ML VIAL ONE ×2 (13:57→14:34)
[2022-03-31] MEDS ORDERED: LIDOCAINE (1%) 10 MG/1 ML VIAL 20 ML MDV ONE (13:57)
[2022-03-31] MEDS ORDERED: HEPARIN/NS 5000 UNIT/500ML 1,000 ML IR ONE (13:57)
[2022-03-31] MEDS ORDERED: MIDAZOLAM 2 MG/2 ML INJ ONE (14:02)
--- NOTE | 2022-03-31 14:02 | Consultation ---
History of Present Illness - Reason for Consult Consult date: 03/31/22 Bilateral Pulmonary Emboli Requesting physician: KAREN CARRANZA - History of Present Illness The patient is a 46-year-old female who presented to the emergency department with complaints of shortness of breath. She states that she had associated chest tightness but denied any chest pain. She called EMS for transportation to the emergency department and upon evaluation was found to have a blood glucose of greater than 500. She denied any prior knowledge of having diabetes. She was also found to have tachycardia in the 120s with an elevated troponin. She was initially managed with fluids and insulin drip with significant improvement of her glucose however her tachycardia and shortness of breath persisted. She underwent an echocardiogram which demonstrated evidence of a dilated right ve ntricle with the suggestion of thrombus within the right atrium. This prompted a CTA of the chest which revealed large bilateral pulmonary emboli. At this time the patient continues to complain of shortness of breath while lying in the bed. She denies any recent trips or prolonged bedrest. She denies any recent illnesses such as COVID-19 infection. She denies any recent trauma but does state that several days ago she had pain in her right calf which she believes was a cramp but she denies any associated swelling. She has no previous history of blood clots and denies any family history of blood clots. She denies any history of hematochezia, hematemesis, melena, or bright red blood per rectum. She has no additional complaints at this time. Past History Past Medical History: other (anxiety) Past Surgical History: (Multiple) Social history: smoking Family history: CAD, cancer, hypertension Medications and Allergies Allergies Allergy/AdvReac Type Severity Reaction Status Date / Time No Known Allergies Allergy Unverified 03/29/22 14:51 Active Meds: Active Medications Alprazolam (Alprazolam 0.25 Mg Tab) 0.25 mg PO Q8H PRN PRN Reason: Anxiety Last Admin: 03/31/22 11:38 Dose: 0.25 mg Dextrose (Dextrose 50% In Water (25gm) 50 Ml Syringe) 0 ml IV Q30MIN PRN; Protocol PRN Reason: Hypoglycemia Dextrose/Sodium Chloride (D5/0.45ns) 1,000 mls @ 125 mls/hr IV DIRECT J LUIS Last Admin: 03/31/22 11:41 Dose: 125 mls/hr Insulin Human Regular 100 (units/ Sodium Chloride) 100 mls @ 1 mls/hr IV TITR J LUIS; Protocol Last Admin: 03/31/22 11:33 Dose: 3 units/hr, 3 mls/hr Potassium Chloride (Kcl 10meq/100ml) 10 meq in 100 mls @ 100 mls/hr IV Q1H PRN PRN Reason: LOW Potassium Levels Potassium Chloride (Kcl 10meq/100ml) 10 meq in 100 mls @ 100 mls/hr IV Q1H PRN PRN Reason: LOW Potassium Levels Sodium Chloride (Nacl 0.9% 1000 Ml) 1,000 mls @ 30 mls/hr IV DIRECT J LUIS Alteplase, Recombinant 10 mg/ (Sodium Chloride) 250 mls @ 10 mls/hr EKOSDLUMEN DIRECT STA Stop: 04/01/22 14:44 Alteplase, Recombinant 10 mg/ (Sodium Chloride) 250 mls @ 10 mls/hr IV DIRECT STA Stop: 04/01/22 14:44 Sodium Chloride (Nacl 0.9% 1000 Ml) 1,000 mls @ 30 mls/hr SHEATH DIRECT J LUIS Sodium Chloride (Nacl 0.9% 1000 Ml) 1,000 mls @ 35 mls/hr EKOSCLUMEN DIRECT J LUIS Sodium Chloride (Nacl 0.9% 1000 Ml) 1,000 mls @ 30 mls/hr SHEATH DIRECT J LUIS Sodium Chloride (Nacl 0.9% 1000 Ml) 1,000 mls @ 35 mls/hr EKOSCLUMEN DIRECT J LUIS Heparin Sodium/Sodium Chloride (Heparin/ 0.45% Nacl-25,000 Unit/500 Ml) 25,000 unit in 500 mls @ 10 mls/hr SHEATH DIRECT J LUIS; Protocol Heparin Sodium/Sodium Chloride (Heparin/ 0.45% Nacl-25,000 Unit/500 Ml) 25,000 unit in 500 mls @ 10 mls/hr SHEATH DIRECT J LUIS; Protocol Ibuprofen (Ibuprofen 600 Mg Tab) 600 mg PO Q6H PRN PRN Reason: Pain, Mild (1-3) Morphine Sulfate (Morphine 2 Mg/1 Ml Inj) 2 mg IV Q4H PRN PRN Reason: Pain, Moderate (4-6) Sodium Chloride (Sodium Chloride 0.9% 10 Ml Flush Syringe) 10 ml IV BID J LUIS Last Admin: 03/31/22 10:04 Dose: 10 ml Sodium Chloride (Sodium Chloride 0.9% 10 Ml Flush Syringe) 10 ml IV PRN PRN PRN Reason: LINE FLUSH Review of Systems All systems: negative Exam - Constitutional Vitals: Temp Pulse Resp BP Pulse Ox 97.8 F 94 H 16 134/99 96 03/29/22 14:26 03/31/22 08:37 03/31/22 08:37 03/31/22 08:37 03/31/22 08:37 General appearance: Present: no acute distress - Neck Neck: Present: supple - Respiratory Respiratory effort: normal - Cardiovascular Heart rate: 115 Rhythm: regular - Extremities Extremities: no ischemia, pulses intact (Palpable pedal pulses bilaterally), No edema (No significant edema of bilateral lower extremities) - Abdominal General gastrointestinal: Present: soft Female genitourinary: Present: deferred - Rectal Rectal Exam: deferred - Psychiatric Psychiatric: appropriate mood/affect Results - Labs CBC & Chem 7: 03/31/22 03:05 03/31/22 09:43 Labs: Abnormal lab results 03/30/22 03/30/22 03/30/22 Range/Units 12:05 19:11 22:19 WBC (4.5-11.0) K/mm3 Hgb (10.1-14.3) gm/dl Hct (30.3-42.9) % Plt Count (140-440) K/mm3 Lymph % (Auto) (13.4-35.0) % Seg Neutrophils % (40.0-70.0) % Seg Neutrophils # (1.8-7.7) K/mm3 Sodium (137-145) mmol/L Potassium (3.6-5.0) mmol/L Carbon Dioxide (22-30) mmol/L BUN (7-17) mg/dL Creatinine (0.6-1.2) mg/dL Glucose (65-100) mg/dL POC Glucose 118 H (70-105) mg/dL Hemoglobin A1c 10.1 H (4-6) % Troponin T 0.033 H D (0.00-0.029) ng/mL 03/30/22 03/31/22 03/31/22 Range/Units 22:19 03:05 03:05 WBC 14.0 H (4.5-11.0) K/mm3 Hgb 14.8 H (10.1-14.3) gm/dl Hct 44.7 H (30.3-42.9) % Plt Count 71 L (140-440) K/mm3 Lymph % (Auto) 13.2 L (13.4-35.0) % Seg Neutrophils % 80.5 H (40.0-70.0) % Seg Neutrophils # 11.2 H (1.8-7.7) K/mm3 Sodium 135 L (137-145) mmol/L Potassium 6.6 H* D 5.6 H (3.6-5.0) mmol/L Carbon Dioxide 17 L 18 L (22-30) mmol/L BUN 30 H 30 H (7-17) mg/dL Creatinine 1.3 H (0.6-1.2) mg/dL Glucose 171 H 208 H (65-100) mg/dL POC Glucose (70-105) mg/dL Hemoglobin A1c (4-6) % Troponin T (0.00-0.029) ng/mL 03/31/22 03/31/22 03/31/22 Range/Units 08:21 09:43 12:43 WBC (4.5-11.0) K/mm3 Hgb (10.1-14.3) gm/dl Hct (30.3-42.9) % Plt Count (140-440) K/mm3 Lymph % (Auto) (13.4-35.0) % Seg Neutrophils % (40.0-70.0) % Seg Neutrophils # (1.8-7.7) K/mm3 Sodium (137-145) mmol/L Potassium (3.6-5.0) mmol/L Carbon Dioxide 17 L (22-30) mmol/L BUN 28 H (7-17) mg/dL Creatinine (0.6-1.2) mg/dL Glucose 221 H (65-100) mg/dL POC Glucose 206 H 225 H (70-105) mg/dL Hemoglobin A1c (4-6) % Troponin T (0.00-0.029) ng/mL - Imaging and Cardiology CT scan - chest: image reviewed Assessment and Plan The patient is a 46-year-old female who presented with complaints of shortness of breath and was found to have pulmonary emboli involving the bilateral lungs. She has significant shortness of breath with an elevated troponin and her echocardiogram demonstrates a dilated right ventricle with a flattened septum during diastole. She meets the criteria for intervention for pulmonary artery embolus. Her platelet count is 71,000 which slightly increases her bleeding risk however she does not have any recent trauma, surgery, or history of ble eding to suggest that she is at high risk. I did discuss the risk of bleeding including her increased risk with a decreased platelet count. The patient expressed understanding of the increased risk and has elected to proceed.
[2022-03-31] MEDS ORDERED: fentaNYL 100 MCG/2 ML INJ ONE (14:03)
[2022-03-31] MEDS ORDERED: ONDANSETRON 4 MG/2 ML INJ IV PRN (14:18)
[2022-03-31] MEDS ORDERED: WATER FOR INJ Sterile (PF) 10 ML ONE (14:36)
[2022-03-31] MEDS: ALTEPLASE 2 MG INJ ONE ×3 (14:45→15:15)
[2022-03-31] MEDS ORDERED: ALTEPLASE 10 MG in SODIUM CHLORIDE 0.9% 250ML 250 ML IV STA (15:01)
[2022-03-31] MEDS ORDERED: ALTEPLASE 10 MG in SODIUM CHLORIDE 0.9% 250ML 250 ML EKOSDLUMEN STA (15:01)
[2022-03-31] MEDS ORDERED: ACETAMINOPHEN 325 MG TAB PO PRN (15:04)
[2022-03-31] MEDS ORDERED: SODIUM CHLORIDE 0.9% 1000 ML 1,000 ML SHEATH SCH ×2 (15:15)
[2022-03-31] MEDS ORDERED: SODIUM CHLORIDE 0.9% 1000 ML 1,000 ML EKOSCLUMEN SCH ×2 (15:15)
--- NOTE | 2022-03-31 15:25 | Hem/Onc Progress Note ---
Subjective Date of service: 03/31/22 Interval history: Heme consult note Discussed with RN Patient in garden labourer during rounds CPT 55327 Dx Pulmonary Embolism The patient is a 46yo AA female who presented to [facility] ED with complaints of shortness of breath and chest tightness. Reports calling EMS for transportation to the ED and upon evaluation was found to have a blood glucose of greater than 500. She denied any prior knowledge of having diabetes. She was also found to have tachycardia in the 120s with an elevated troponin. She was initially managed with fluids and insulin drip with significant improvement of her glucose however her tachycardia and shortness of breath persisted. She underwent an echocardiogram which demonstrated evidence of a dilated right ventricle with the suggestion of thrombus within the right atrium. This prompted a CTA of the chest which revealed large submassive bilateral pulmonary emboli. As per chart review, patient with complaints of shortness of breath while lying in the bed. She denies any recent trips or prolonged bedrest. She denies any recent illnesses such as COVID-19 infection. She denies any recent trauma but does state that several days ago she had pain in her right calf which she believes was a cramp but she denies any associated swelling. She has no previous history of blood clots and denies any family history of blood clots. She denies any history of hematochezia, hematemesis, melena, or bright red blood per rectum. She has no additional complaints at this time. Hematology was consulted for evaluation of submassive PE and low platelets. DATA REVIEWED BELOW IMP: Clotting tendency, submassive bilateral PE with RV strain --EKOS Thrombolysis today 03/31/22 Low platelets could be ITP due to sepsis, and liver dysfunction --Rule out HIT although doubt DKA, new diagnosis diabetes, metabolic acidosis Morbid obesity PLAN: Argatroban 0.5mcg/kg/min protocol Monitor CBC Monitor for any signs or symptoms of bleeding Labs to include hgbEP, cardiolipin ab, iron studies, pf4 ab, alina 2 mutation Laboratory Last Values WBC 10.8 K/mm3 (4.5-11.0) 03/31/22 15:15 Hgb 14.0 gm/dl (10.1-14.3) 03/31/22 15:15 Hct 41.1 % (30.3-42.9) 03/31/22 15:15 MCV 95 fl (79-97) 03/31/22 15:15 Plt Count 63 K/mm3 (140-440) L 03/31/22 15:15 Seg Neutrophils % 78.2 % (40.0-70.0) H 03/31/22 15:15 Seg Neutrophils # 8.4 K/mm3 (1.8-7.7) H 03/31/22 15:15 PT 15.2 Sec. (12.2-14.9) H 03/29/22 15:49 INR 1.08 (0.87-1.13) 03/29/22 15:49 Creatinine 0.9 mg/dL (0.6-1.2) 03/31/22 09:43 AST 217 units/L (5-40) H 03/29/22 15:49 ALT 206 units/L (7-56) H 03/29/22 15:49 Alkaline Phosphatase 79 units/L (35-129) 03/29/22 15:49 Total Creatine Kinase 146 units/L (30-135) H 03/29/22 15:49 CK-MB (CK-2) 5.1 ng/mL (0.0-4.0) H 03/29/22 15:49 CK-MB (CK-2) Rel Index 3.4 (0-4) 03/29/22 15:49 Troponin T 0.033 ng/mL (0.00-0.029) H D 03/30/22 22:19 Objective - Constitutional Vitals: Last Vital Signs Temp 97.8 F 03/29/22 14:26 Pulse 94 H 03/31/22 08:37 Resp 16 03/31/22 08:37 BP 134/99 03/31/22 08:37 Pulse Ox 96 03/31/22 08:37 - Labs Lab Results: Laboratory Results - last 24 hr 03/30/22 03/30/22 03/30/22 19:11 22:19 22:19 WBC RBC Hgb Hct MCV MCH MCHC RDW Plt Count Lymph % (Auto) Casey % (Auto) Eos % (Auto) Baso % (Auto) Lymph # (Auto) Casey # (Auto) Eos # (Auto) Baso # (Auto) Seg Neutrophils % Seg Neutrophils # Sodium 135 L Potassium 6.6 H* D Chloride 101.8 Carbon Dioxide 17 L Anion Gap 23 BUN 30 H Creatinine 1.3 H Estimated GFR 53 BUN/Creatinine Ratio 23 Glucose 171 H POC Glucose 118 H Calcium 9.6 Phosphorus Magnesium Troponin T 0.033 H D 03/31/22 03/31/22 03/31/22 03:05 03:05 08:21 WBC 14.0 H RBC 4.66 Hgb 14.8 H Hct 44.7 H MCV 96 MCH 32 MCHC 33 RDW 13.2 Plt Count 71 L Lymph % (Auto) 13.2 L Casey % (Auto) 5.8 Eos % (Auto) 0.1 Baso % (Auto) 0.4 Lymph # (Auto) 1.8 Casey # (Auto) 0.8 Eos # (Auto) 0.0 Baso # (Auto) 0.1 Seg Neutrophils % 80.5 H Seg Neutrophils # 11.2 H Sodium 138 Potassium 5.6 H Chloride 100.7 Carbon Dioxide 18 L Anion Gap 25 BUN 30 H Creatinine 1.0 Estimated GFR > 60 BUN/Creatinine Ratio 30 Glucose 208 H POC Glucose 206 H Calcium 9.6 Phosphorus Magnesium Troponin T 03/31/22 03/31/22 03/31/22 09:43 09:43 12:43 WBC RBC Hgb Hct MCV MCH MCHC RDW Plt Count Lymph % (Auto) Casey % (Auto) Eos % (Auto) Baso % (Auto) Lymph # (Auto) Casey # (Auto) Eos # (Auto) Baso # (Auto) Seg Neutrophils % Seg Neutrophils # Sodium 138 Potassium 4.3 D Chloride 100.6 Carbon Dioxide 17 L Anion Gap 25 BUN 28 H Creatinine 0.9 Estimated GFR > 60 BUN/Creatinine Ratio 31 Glucose 221 H POC Glucose 225 H Calcium 9.2 Phosphorus 4.00 Magnesium 1.80 Troponin T Medications & Allergies - Medications Allergies/Adverse Reactions: Allergies No Known Allergies Allergy (Unverified 03/29/22 14:51) Active Medications: Generic Name Dose Route Start Last Admin Trade Name Freq PRN Reason Stop Dose Admin Acetaminophen 650 mg 03/31/22 15:04 Acetaminophen 325 Mg Tab PO Q6H PRN Pain, Mild (1-3) Alprazolam 0.25 mg 03/30/22 13:00 03/31/22 11:38 Alprazolam 0.25 Mg Tab PO 0.25 mg Q8H PRN Administration Anxiety Dextrose 0 ml 03/31/22 09:28 Dextrose 50% In Water (25gm) 50 Ml Syringe IV Q30MIN PRN Hypoglycemia Protocol Dextrose/Sodium Chloride 1,000 mls @ 125 mls/hr 03/31/22 10:00 03/31/22 11:41 D5/0.45ns IV 125 mls/hr DIRECT J LUIS Administration Insulin Human Regular 100 100 mls @ 1 mls/hr 03/31/22 10:00 03/31/22 11:33 units/ Sodium Chloride IV 3 units/hr TITR J LUIS 3 mls/hr Administration Protocol 1 UNITS/HR Potassium Chloride 10 meq in 100 mls @ 100 mls/hr 03/31/22 09:28 Kcl 10meq/100ml IV Q1H PRN LOW Potassium Levels Potassium Chloride 10 meq in 100 mls @ 100 mls/hr 03/31/22 09:28 Kcl 10meq/100ml IV Q1H PRN LOW Potassium Levels Sodium Chloride 1,000 mls @ 30 mls/hr 03/31/22 13:45 Nacl 0.9% 1000 Ml IV DIRECT J LUIS Alteplase, Recombinant 10 mg/ 250 mls @ 10 mls/hr 03/31/22 15:01 Sodium Chloride EKOSDLUMEN 04/01/22 16:00 DIRECT STA Alteplase, Recombinant 10 mg/ 250 mls @ 10 mls/hr 03/31/22 15:01 Sodium Chloride IV 04/01/22 16:00 DIRECT STA Sodium Chloride 1,000 mls @ 30 mls/hr 03/31/22 15:15 Nacl 0.9% 1000 Ml SHEATH DIRECT J LUIS Sodium Chloride 1,000 mls @ 35 mls/hr 03/31/22 15:15 Nacl 0.9% 1000 Ml EKOSCLUMEN DIRECT J LUIS Sodium Chloride 1,000 mls @ 30 mls/hr 03/31/22 15:15 Nacl 0.9% 1000 Ml SHEATH DIRECT J LUIS Sodium Chloride 1,000 mls @ 35 mls/hr 03/31/22 15:15 Nacl 0.9% 1000 Ml EKOSCLUMEN DIRECT J LUIS Heparin Sodium/Sodium Chloride 25,000 unit in 500 mls @ 10 mls/hr 03/31/22 16:00 Heparin/ 0.45% Nacl-25,000 Unit/500 Ml SHEATH DIRECT J LUIS Protocol 500 UNITS/HR Heparin Sodium/Sodium Chloride 25,000 unit in 500 mls @ 10 mls/hr 03/31/22 16:00 Heparin/ 0.45% Nacl-25,000 Unit/500 Ml SHEATH DIRECT J LUIS Protocol 500 UNITS/HR Ibuprofen 600 mg 03/29/22 17:42 Ibuprofen 600 Mg Tab PO Q6H PRN Pain, Mild (1-3) Morphine Sulfate 2 mg 03/29/22 17:42 Morphine 2 Mg/1 Ml Inj IV Q4H PRN Pain, Moderate (4-6) Morphine Sulfate 4 mg 03/31/22 15:04 Morphine 4 Mg/1 Ml Inj IV Q4H PRN Pain , Severe (7-10) Ondansetron HCl 4 mg 03/31/22 14:18 03/31/22 14:25 Ondansetron 4 Mg/2 Ml Inj IV 4 mg Q8H PRN Administration Nausea And Vomiting Sodium Chloride 10 ml 03/29/22 22:00 03/31/22 10:04 Sodium Chloride 0.9% 10 Ml Flush Syringe IV 10 ml BID J LUIS Administration Sodium Chloride 10 ml 03/29/22 17:42 Sodium Chloride 0.9% 10 Ml Flush Syringe IV PRN PRN LINE FLUSH
--- NOTE | 2022-03-31 15:37 | Operative Report ---
Operative Report Operative Report: Date of Procedure: 03/31/2022 Pre-operative Diagnosis: Symptomatic Bilateral Pulmonary Arteries Emboli with Ri ght Heart Strain Post-operative Diagnosis: Same Procedure(s): 1. Ultrasound-Guided Access Right Common Femoral Vein 2. Ultrasound-Guided Access Right Common Femoral Vein 3. Nonselective Diagnostic Pulmonary Angiogram 4. Diagnostic Right Pulmonary Artery Angiogram 5. Diagnostic Left Pulmonary Artery Angiogram 6. Placement of 106 x 12 cm EKOS Thrombolysis Catheter in Right Pulmonary Artery 7. Placement of 106 x 12 cm EKOS Thrombolysis Catheter in Left Pulmonary Artery 8. Radiologic Supervision with Interpretation 9. Monitored Moderate Sedation (Total Anesthesia Time: 35 Minutes) Surgeon: Hill Victor M.D. Pie Filler: None Anesthesia: Local/Monitored Moderate Sedation Total Anesthesia Time: 35 Minutes EBL: Minimal Counts: Correct Complications: None Condition: Critical but stable Specimen: None Indication: The patient is a 46-year-old female who presented with shortness of breath and was found to have submassive bilateral pulmonary emboli. She had an elevated troponin and an echocardiogram demonstrated evidence of right heart strain. She is in need of pulmonary artery thrombolysis. She was given the risk, benefits, and alternative procedures and consented to the procedure. Angiographic Findings: The diagnostic pulmonary angiogram revealed thrombus within the main right pulmonary artery and thrombus within the segmental branches of the left pulmonary arteries. The selective right pulmonary artery angiogram revealed additional thrombus within the segmental and subsegmental branches of the right pulmonary arteries. The selective left pulmonary artery angiogram revealed near total occlusion of the superior left pulmonary artery. The right pulmonary artery EKOS thrombolysis catheter was placed with the proximal tip in the main pulmonary artery and the distal tip in the distal middle lobe branch. The left pulmonary artery EKOS thrombolysis catheter was placed with the proximal tip in the middle of the main pulmonary artery and the distal tip in the distal superior pulmonary artery branch. 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 After timeout was performed the right groin was prepped and draped in normal sterile fashion. Ultrasound was used to identify the right common femoral vein and confirm patency. Once patency was confirmed overlying skin and soft tissue was anesthetized with lidocaine. An 11 blade was used to make 2 small stab incisions and then a 21-gauge micropuncture needle was used to access the distal stab incision to access the common femoral vein with ultrasound guidance. A 0.018 micropuncture wire was advanced into the femoral vein and after removing the needle a micropuncture sheath was placed by Seldinger technique. The dilator and wire were removed and the short sheath J-wire was advanced into the vein. The micropuncture sheath was then removed. The 21-gauge micropuncture needle was then used with ultrasound guidance to access the vein through the more proximal stab incision and a 0.018 micropuncture wire was advanced to the vein. The needle was removed and the micropuncture sheath was placed by standard technique. The dilator and wire were removed and a short sheath J-wire was advanced into the vein. The micropuncture sheath was removed and a 6 Eritrean sheaths were advanced over each respective J-wire by Seldinger technique. A 6 Eritrean JR4 catheter was advanced to the more distal sheath along with a 0.035 Bentson wire and advanced through the right atrium and ventricle and into the main pulmonary artery. A nonselective pulmonary angiogram was then performed with the previously described findings. The wire was reinserted and the catheter wire were then advanced into the right pulmonary artery and a selective right pulmonary angiogram was performed with the previously described findings. The catheter and wire were then advanced into the right pulmonary artery and the wire was left in place removing the catheter. A 106 x 12 cm EKOS Thrombolysis Catheter was then advanced into position and the wire was removed. The ultrasound wire was then advanced into the catheter and secured in place. I then advanced the JR4 catheter along with the Bentson wire through the more proximal 6 Eritrean sheath, through the atrium and ventricle and into the main pulmonary artery and eventually into the left pulmonary artery. Selective left pulmonary artery angiogram was then performed to previously described findings. I advanced the wire into the left pulmonary artery and remove the JR4 catheter. I advanced a 106 x 12 cm EKOS Thrombolysis Catheter into the pulmonary artery and remove the wire. I advanced the ultrasound wire into the catheter and then secured in position. I then secured both 6 Eritrean sheaths as well as the EKOS catheters in place using 0 silk sutures in interrupted fashion. I primed each sheath with 3000 units of heparin respectively. I primed each coolant port with 2000 units of heparin respectively. I injected 4 mg of tPA into each drug port. The catheters and sheaths were then dressed with sterile dressings. The patient tolerated the procedure well and was transported to the intensive care unit in critical but stable condition.
[2022-03-31 15:46] LABS: Basophils % (Auto) 0.3 % (0.0-1.8); Hematocrit 41.1 % (30.3-42.9); Lymphocytes # (Auto) 1.7 K/mm3 (1.2-5.4); Lymphocytes % (Auto) 15.3 % (13.4-35.0); Mean Corpuscular HGB Conc 34 % (30-34); Mean Corpuscular Volume 95 fl (79-97); Monocytes # (Auto) 0.7 K/mm3 (0.0-0.8); Monocytes % (Auto) 6.2 % (0.0-7.3); Red Blood Count 4.34 M/mm3 (3.65-5.03); Red Cell Distribution Width 12.6 % (13.2-15.2)
[2022-03-31 15:50] LABS: Platelet Count 63 K/mm3 (140-440)
[2022-03-31] MEDS ORDERED: HEPARIN/ 0.45% NACL DRIP 25,000 UNIT/500 ML BAG SHEATH SCH ×2 (16:00)
[2022-03-31 16:01] LABS: INR 1.27 (0.87-1.13)
[2022-03-31 16:02] LABS: Partial Thromboplastin Time 29.4 Sec. (24.2-36.6)
[2022-03-31] MEDS: MORPHINE 4 MG/1 ML INJ IV PRN (16:26)
[2022-03-31 16:27] LABS: BUN/Creatinine Ratio 24; Blood Urea Nitrogen 22 mg/dL (7-17); Calcium 8.6 mg/dL (8.4-10.2); Hemolysis Index 10
[2022-03-31 17:51] LABS: Iron 40 ug/dL (37-170); Total Iron Binding Capacity 368 mcg/dL (250-450)
[2022-03-31 18:10] LABS: Blood Urea Nitrogen 21 mg/dL (7-17); Hemolysis Index 59
[2022-03-31 18:22] LABS: BUN/Creatinine Ratio 30
[2022-03-31 19:54] LABS: Basophils # (Auto) 0.1 K/mm3 (0.0-0.1); Basophils % (Auto) 0.6 % (0.0-1.8); Eosinophils % (Auto) 0.1 % (0.0-4.3); Hematocrit 42.1 % (30.3-42.9); Hemoglobin 14.3 gm/dl (10.1-14.3); Lymphocytes # (Auto) 2.4 K/mm3 (1.2-5.4); Lymphocytes % (Auto) 19.6 % (13.4-35.0); Mean Corpuscular HGB Conc 34 % (30-34); Mean Corpuscular Volume 95 fl (79-97); Monocytes # (Auto) 0.9 K/mm3 (0.0-0.8); Monocytes % (Auto) 7.7 % (0.0-7.3); Red Blood Count 4.42 M/mm3 (3.65-5.03); Red Cell Distribution Width 12.8 % (13.2-15.2)
[2022-03-31 20:09] LABS: Platelet Count 67 K/mm3 (140-440)
[2022-04-01 01:49] LABS: Basophils % (Auto) 0.1 % (0.0-1.8); Eosinophils % (Auto) 0.1 % (0.0-4.3); Hematocrit 40.3 % (30.3-42.9); Hemoglobin 13.2 gm/dl (10.1-14.3); Lymphocytes # (Auto) 2.5 K/mm3 (1.2-5.4); Lymphocytes % (Auto) 21.5 % (13.4-35.0); Mean Corpuscular HGB Conc 33 % (30-34); Mean Corpuscular Volume 95 fl (79-97); Monocytes # (Auto) 0.9 K/mm3 (0.0-0.8); Monocytes % (Auto) 8.1 % (0.0-7.3); Red Blood Count 4.27 M/mm3 (3.65-5.03)
[2022-04-01 01:51] LABS: Platelet Count 57 K/mm3 (140-440)
[2022-04-01 01:55] LABS: Blood Urea Nitrogen 13 mg/dL (7-17); Calcium 8.2 mg/dL (8.4-10.2); Hemolysis Index 21
[2022-04-01 02:04] LABS: BUN/Creatinine Ratio 22
[2022-04-01] MEDS: MORPHINE 4 MG/1 ML INJ IV PRN ×2 (02:31→08:43)
[2022-04-01] MEDS: D5W/0.45% NACL 1,000 ML IV SCH (04:20)
[2022-04-01 06:44] LABS: Basophils % (Auto) 0.3 % (0.0-1.8); Eosinophils % (Auto) 0.3 % (0.0-4.3); Hematocrit 37.8 % (30.3-42.9); Hemoglobin 12.9 gm/dl (10.1-14.3); Lymphocytes # (Auto) 2.5 K/mm3 (1.2-5.4); Lymphocytes % (Auto) 23.7 % (13.4-35.0); Mean Corpuscular HGB Conc 34 % (30-34); Mean Corpuscular Volume 95 fl (79-97); Monocytes % (Auto) 9.7 % (0.0-7.3); Red Blood Count 3.99 M/mm3 (3.65-5.03); Red Cell Distribution Width 12.8 % (13.2-15.2)
[2022-04-01 06:45] LABS: Platelet Count 55 K/mm3 (140-440)
[2022-04-01 07:11] LABS: Blood Urea Nitrogen 11 mg/dL (7-17); Calcium 7.9 mg/dL (8.4-10.2); Hemolysis Index 21
[2022-04-01 07:48] LABS: BUN/Creatinine Ratio 18
[2022-04-01 11:21] LABS: Blood Urea Nitrogen 10 mg/dL (7-17); Calcium 7.5 mg/dL (8.4-10.2); Hemolysis Index 1
--- NOTE | 2022-04-01 11:23 | Progress Note ---
Assessment and Plan 03/31/22: Continue insulin drip until gap closes. 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 Likely hold on KRISTIE. Anticoagulation, CHILDR[employer] PROGRAM COORDINATOR to discuss with Heme if Argatroban is what is wanted post EKOS removal given low platelets. Can likely transition to long acting insulin once able to eat. FSBS ac and qhs. SSI. Will need age appropriate screening for malignancy as well as hypercoagulable work up as out patient if malignancy is not found. 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 Taken for EKOS yesterday. Still has catheters in place. Objective - Constitutional Vitals: Vital Signs - 12hr 03/31/22 03/31/22 03/31/22 23:20 23:28 23:30 Temperature Pulse Rate 111 H 112 H Pulse Rate [ From Monitor] Respiratory 26 H 34 H Rate Blood Pressure 106/72 106/72 O2 Sat by Pulse 97 97 97 Oximetry 03/31/22 03/31/22 04/01/22 23:40 23:50 00:00 Temperature Pulse Rate 111 H 111 H 110 H Pulse Rate [ From Monitor] Respiratory 28 H 26 H 22 Rate Blood Pressure 106/72 106/72 125/96 O2 Sat by Pulse 97 97 Oximetry 04/01/22 04/01/22 04/01/22 00:10 00:20 00:30 Temperature 98.2 F Pulse Rate 109 H 110 H 110 H Pulse Rate [ From Monitor] Respiratory 22 30 H 24 Rate Blood Pressure 125/96 125/96 125/96 O2 Sat by Pulse 97 98 Oximetry 04/01/22 04/01/22 04/01/22 00:40 00:50 00:55 Temperature Pulse Rate 109 H 113 H Pulse Rate [ From Monitor] Respiratory 29 H 19 35 H Rate Blood Pressure 125/96 125/96 O2 Sat by Pulse 96 97 97 Oximetry 04/01/22 04/01/22 04/01/22 01:00 01:10 01:20 Temperature Pulse Rate 112 H 114 H 111 H Pulse Rate [ From Monitor] Respiratory 30 H 37 H 37 H Rate Blood Pressure 116/82 116/82 116/82 O2 Sat by Pulse 97 96 96 Oximetry 04/01/22 04/01/22 04/01/22 01:28 01:30 01:40 Temperature Pulse Rate 111 H 113 H Pulse Rate [ From Monitor] Respiratory 35 H 39 H 36 H Rate Blood Pressure 116/82 116/82 O2 Sat by Pulse 97 97 96 Oximetry 04/01/22 04/01/22 04/01/22 01:50 02:00 02:10 Temperature Pulse Rate 110 H 111 H 111 H Pulse Rate [ From Monitor] Respiratory 42 H 42 H 39 H Rate Blood Pressure 116/82 105/81 105/81 O2 Sat by Pulse 94 93 95 Oximetry 04/01/22 04/01/22 04/01/22 02:20 02:30 02:31 Temperature Pulse Rate 110 H 112 H Pulse Rate [ From Monitor] Respiratory 33 H 39 H 31 H Rate Blood Pressure 105/81 105/81 O2 Sat by Pulse 95 95 Oximetry 04/01/22 04/01/22 04/01/22 02:40 02:50 02:53 Temperature Pulse Rate 109 H 112 H 111 H Pulse Rate [ From Monitor] Respiratory 25 H 30 H 35 H Rate Blood Pressure 105/81 105/81 O2 Sat by Pulse 91 94 97 Oximetry 04/01/22 04/01/22 04/01/22 03:00 03:01 03:10 Temperature 98.3 F Pulse Rate 108 H 106 H Pulse Rate [ From Monitor] Respiratory 31 H 18 33 H Rate Blood Pressure 105/77 105/77 O2 Sat by Pulse 95 94 Oximetry 04/01/22 04/01/22 04/01/22 03:20 03:30 03:40 Temperature Pulse Rate 108 H 108 H 106 H Pulse Rate [ From Monitor] Respiratory 37 H 38 H 28 H Rate Blood Pressure 105/77 105/77 105/77 O2 Sat by Pulse 92 95 97 Oximetry 04/01/22 04/01/22 04/01/22 03:50 04:00 04:10 Temperature Pulse Rate 103 H 104 H 105 H Pulse Rate [ From Monitor] Respiratory 28 H 27 H 28 H Rate Blood Pressure 105/77 105/77 105/77 O2 Sat by Pulse 98 98 96 Oximetry 04/01/22 04/01/22 04/01/22 04:20 04:30 04:40 Temperature Pulse Rate 105 H 104 H 102 H Pulse Rate [ From Monitor] Respiratory 31 H 28 H 27 H Rate Blood Pressure 105/77 108/78 108/78 O2 Sat by Pulse 96 95 95 Oximetry 04/01/22 04/01/22 04/01/22 04:50 05:00 05:10 Temperature Pulse Rate 103 H 103 H 105 H Pulse Rate [ From Monitor] Respiratory 32 H 25 H 20 Rate Blood Pressure 108/78 95/71 95/71 O2 Sat by Pulse 93 95 65 L Oximetry 04/01/22 04/01/22 04/01/22 05:20 05:30 05:40 Temperature Pulse Rate 103 H 104 H 103 H Pulse Rate [ From Monitor] Respiratory 30 H 23 22 Rate Blood Pressure 95/71 95/71 95/71 O2 Sat by Pulse 98 97 98 Oximetry 04/01/22 04/01/22 04/01/22 05:50 06:00 06:10 Temperature Pulse Rate 102 H 102 H 103 H Pulse Rate [ From Monitor] Respiratory 24 25 H 23 Rate Blood Pressure 95/71 95/72 95/72 O2 Sat by Pulse 97 92 95 Oximetry 04/01/22 04/01/22 04/01/22 06:20 06:23 06:30 Temperature Pulse Rate 103 H 103 H 105 H Pulse Rate [ From Monitor] Respiratory 31 H 35 H 34 H Rate Blood Pressure 95/72 95/72 O2 Sat by Pulse 97 97 97 Oximetry 04/01/22 04/01/22 04/01/22 06:40 06:50 07:00 Temperature Pulse Rate 103 H 105 H 104 H Pulse Rate [ From Monitor] Respiratory 18 24 44 H Rate Blood Pressure 95/72 95/72 109/82 O2 Sat by Pulse 97 95 97 Oximetry 04/01/22 04/01/22 04/01/22 07:10 07:20 07:30 Temperature 97.4 F L Pulse Rate 103 H 100 H 102 H Pulse Rate [ 102 H From Monitor] Respiratory 28 H 26 H 21 Rate Blood Pressure 109/82 109/82 109/82 O2 Sat by Pulse 96 97 97 Oximetry 04/01/22 04/01/22 04/01/22 07:40 07:50 08:00 Temperature Pulse Rate 102 H 102 H 101 H Pulse Rate [ From Monitor] Respiratory 30 H 30 H 25 H Rate Blood Pressure 109/82 109/82 102/74 O2 Sat by Pulse 98 95 97 Oximetry 04/01/22 04/01/22 04/01/22 08:10 08:20 08:30 Temperature Pulse Rate 104 H 101 H 99 H Pulse Rate [ From Monitor] Respiratory 23 26 H 26 H Rate Blood Pressure 102/74 102/74 102/74 O2 Sat by Pulse 93 92 96 Oximetry 04/01/22 04/01/22 04/01/22 08:40 08:50 09:00 Temperature Pulse Rate 103 H 102 H 100 H Pulse Rate [ From Monitor] Respiratory 28 H 30 H 26 H Rate Blood Pressure 102/74 109/82 100/75 O2 Sat by Pulse 94 93 97 Oximetry 04/01/22 04/01/22 04/01/22 09:10 09:18 09:20 Temperature Pulse Rate 98 H 102 H 101 H Pulse Rate [ From Monitor] Respiratory 23 29 H Rate Blood Pressure 100/75 100/75 O2 Sat by Pulse 97 97 Oximetry 04/01/22 04/01/22 04/01/22 09:30 09:40 09:50 Temperature Pulse Rate 101 H 100 H 101 H Pulse Rate [ From Monitor] Respiratory 27 H 25 H 26 H Rate Blood Pressure 100/75 100/75 100/75 O2 Sat by Pulse 95 93 93 Oximetry 04/01/22 04/01/22 10:00 10:10 Temperature Pulse Rate 99 H 98 H Pulse Rate [ From Monitor] Respiratory 23 25 H Rate Blood Pressure 102/72 102/72 O2 Sat by Pulse 95 90 Oximetry - Labs CBC & Chem 7: 04/01/22 05:31 04/01/22 05:31 Labs: Abnormal lab results 03/31/22 03/31/22 03/31/22 Range/Units 12:43 15:15 15:15 WBC (4.5-11.0) K/mm3 RDW 12.6 L (13.2-15.2) % Plt Count 63 L (140-440) K/mm3 [place] % (Auto) (0.0-7.3) % [place] # (Auto) (0.0-0.8) K/mm3 Seg Neutrophils % 78.2 H (40.0-70.0) % Seg Neutrophils # 8.4 H (1.8-7.7) K/mm3 PT (12.2-14.9) Sec. INR (0.87-1.13) Heparin Anti-Xa Level (0.3-0.7) U.I./ml Sodium 136 L (137-145) mmol/L Potassium (3.6-5.0) mmol/L Carbon Dioxide 20 L (22-30) mmol/L BUN 22 H (7-17) mg/dL Glucose 247 H (65-100) mg/dL POC Glucose 225 H (70-105) mg/dL Calcium (8.4-10.2) mg/dL Ferritin (10.0-200.0) ng/mL 03/31/22 03/31/22 03/31/22 Range/Units 15:15 15:53 19:32 WBC 12.0 H (4.5-11.0) K/mm3 RDW 12.8 L (13.2-15.2) % Plt Count 67 L (140-440) K/mm3 [place] % (Auto) 7.7 H (0.0-7.3) % [place] # (Auto) 0.9 H (0.0-0.8) K/mm3 Seg Neutrophils % 72.0 H (40.0-70.0) % Seg Neutrophils # 8.7 H (1.8-7.7) K/mm3 PT 17.8 H (12.2-14.9) Sec. INR 1.27 H (0.87-1.13) Heparin Anti-Xa Level (0.3-0.7) U.I./ml Sodium (137-145) mmol/L Potassium (3.6-5.0) mmol/L Carbon Dioxide (22-30) mmol/L BUN (7-17) mg/dL Glucose (65-100) mg/dL POC Glucose 241 H (70-105) mg/dL Calcium (8.4-10.2) mg/dL Ferritin (10.0-200.0) ng/mL 03/31/22 03/31/22 03/31/22 Range/Units 19:32 20:59 21:49 WBC (4.5-11.0) K/mm3 RDW (13.2-15.2) % Plt Count (140-440) K/mm3 [place] % (Auto) (0.0-7.3) % [place] # (Auto) (0.0-0.8) K/mm3 Seg Neutrophils % (40.0-70.0) % Seg Neutrophils # (1.8-7.7) K/mm3 PT (12.2-14.9) Sec. INR (0.87-1.13) Heparin Anti-Xa Level 0.77 H (0.3-0.7) U.I./ml Sodium (137-145) mmol/L Potassium (3.6-5.0) mmol/L Carbon Dioxide (22-30) mmol/L BUN (7-17) mg/dL Glucose (65-100) mg/dL POC Glucose 107 H 121 H (70-105) mg/dL Calcium (8.4-10.2) mg/dL Ferritin (10.0-200.0) ng/mL 03/31/22 03/31/22 04/01/22 Range/Units Unknown Unknown 00:46 WBC (4.5-11.0) K/mm3 RDW (13.2-15.2) % Plt Count (140-440) K/mm3 [place] % (Auto) (0.0-7.3) % [place] # (Auto) (0.0-0.8) K/mm3 Seg Neutrophils % (40.0-70.0) % Seg Neutrophils # (1.8-7.7) K/mm3 PT (12.2-14.9) Sec. INR (0.87-1.13) Heparin Anti-Xa Level (0.3-0.7) U.I./ml Sodium 133 L (137-145) mmol/L Potassium (3.6-5.0) mmol/L Carbon Dioxide 14 L (22-30) mmol/L BUN 21 H (7-17) mg/dL Glucose 210 H (65-100) mg/dL POC Glucose 173 H (70-105) mg/dL Calcium (8.4-10.2) mg/dL Ferritin 453.4 H (10.0-200.0) ng/mL 04/01/22 04/01/22 04/01/22 Range/Units 01:14 01:14 01:14 WBC 11.4 H (4.5-11.0) K/mm3 RDW 13.0 L (13.2-15.2) % Plt Count 57 L (140-440) K/mm3 [place] % (Auto) 8.1 H (0.0-7.3) % [place] # (Auto) 0.9 H (0.0-0.8) K/mm3 Seg Neutrophils % 70.2 H (40.0-70.0) % Seg Neutrophils # 8.0 H (1.8-7.7) K/mm3 PT (12.2-14.9) Sec. INR (0.87-1.13) Heparin Anti-Xa Level 0.15 L (0.3-0.7) U.I./ml Sodium 131 L (137-145) mmol/L Potassium 3.3 L (3.6-5.0) mmol/L Carbon Dioxide 19 L (22-30) mmol/L BUN (7-17) mg/dL Glucose 158 H (65-100) mg/dL POC Glucose (70-105) mg/dL Calcium 8.2 L (8.4-10.2) mg/dL Ferritin (10.0-200.0) ng/mL 04/01/22 04/01/22 04/01/22 Range/Units 03:10 05:31 05:31 WBC (4.5-11.0) K/mm3 RDW 12.8 L (13.2-15.2) % Plt Count 55 L (140-440) K/mm3 [place] % (Auto) 9.7 H (0.0-7.3) % [place] # (Auto) 1.0 H (0.0-0.8) K/mm3 Seg Neutrophils % (40.0-70.0) % Seg Neutrophils # (1.8-7.7) K/mm3 PT (12.2-14.9) Sec. INR (0.87-1.13) Heparin Anti-Xa Level (0.3-0.7) U.I./ml Sodium 135 L (137-145) mmol/L Potassium 3.5 L (3.6-5.0) mmol/L Carbon Dioxide 19 L (22-30) mmol/L BUN (7-17) mg/dL Glucose 142 H (65-100) mg/dL POC Glucose 113 H (70-105) mg/dL Calcium 7.9 L (8.4-10.2) mg/dL Ferritin (10.0-200.0) ng/mL 04/01/22 04/01/22 04/01/22 Range/Units 05:31 06:20 09:37 WBC (4.5-11.0) K/mm3 RDW (13.2-15.2) % Plt Count (140-440) K/mm3 [place] % (Auto) (0.0-7.3) % [place] # (Auto) (0.0-0.8) K/mm3 Seg Neutrophils % (40.0-70.0) % Seg Neutrophils # (1.8-7.7) K/mm3 PT (12.2-14.9) Sec. INR (0.87-1.13) Heparin Anti-Xa Level 0.15 L (0.3-0.7) U.I./ml Sodium (137-145) mmol/L Potassium (3.6-5.0) mmol/L Carbon Dioxide (22-30) mmol/L BUN (7-17) mg/dL Glucose (65-100) mg/dL POC Glucose 154 H 115 H (70-105) mg/dL Calcium (8.4-10.2) mg/dL Ferritin (10.0-200.0) ng/mL 04/01/22 Range/Units 10:38 WBC (4.5-11.0) K/mm3 RDW (13.2-15.2) % Plt Count (140-440) K/mm3 [place] % (Auto) (0.0-7.3) % [place] # (Auto) (0.0-0.8) K/mm3 Seg Neutrophils % (40.0-70.0) % Seg Neutrophils # (1.8-7.7) K/mm3 PT (12.2-14.9) Sec. INR (0.87-1.13) Heparin Anti-Xa Level (0.3-0.7) U.I./ml Sodium (137-145) mmol/L Potassium (3.6-5.0) mmol/L Carbon Dioxide (22-30) mmol/L BUN (7-17) mg/dL Glucose (65-100) mg/dL POC Glucose 117 H (70-105) mg/dL Calcium (8.4-10.2) mg/dL Ferritin (10.0-200.0) ng/mL Medications & Allergies - Medications Allergies/Adverse Reactions: Allergies No Known Allergies Allergy (Unverified 03/29/22 14:51) Home Medications: Home Medications Medication Instructions Recorded Confirmed Last Taken Type No Known Home Medications [No 03/31/22 03/31/22 Unknown History Reported Home Medications] Active Medications: Generic Name Dose Route Start Last Admin Trade Name Freq PRN Reason Stop Dose Admin Acetaminophen 650 mg 03/31/22 15:04 Acetaminophen 325 Mg Tab PO Q6H PRN Pain, Mild (1-3) Alprazolam 0.25 mg 03/30/22 13:00 03/31/22 22:02 Alprazolam 0.25 Mg Tab PO 0.25 mg Q8H PRN Administration Anxiety Dextrose 0 ml 03/31/22 09:28 Dextrose 50% In Water (25gm) 50 Ml Syringe IV Q30MIN PRN Hypoglycemia Protocol Dextrose/Sodium Chloride 1,000 mls @ 125 mls/hr 03/31/22 10:00 04/01/22 04:20 D5/0.45ns IV 125 mls/hr DIRECT J LUIS Administration Insulin Human Regular 100 100 mls @ 1 mls/hr 03/31/22 10:00 04/01/22 10:39 units/ Sodium Chloride IV 1.5 units/hr TITR J LUIS 1.5 mls/hr Titration Protocol 1 UNITS/HR Potassium Chloride 10 meq in 100 mls @ 100 mls/hr 03/31/22 09:28 Kcl 10meq/100ml IV Q1H PRN LOW Potassium Levels Potassium Chloride 10 meq in 100 mls @ 100 mls/hr 03/31/22 09:28 Kcl 10meq/100ml IV Q1H PRN LOW Potassium Levels Sodium Chloride 1,000 mls @ 30 mls/hr 03/31/22 13:45 Nacl 0.9% 1000 Ml IV DIRECT J LUIS Alteplase, Recombinant 10 mg/ 250 mls @ 10 mls/hr 03/31/22 15:01 Sodium Chloride EKOSDLUMEN 04/01/22 16:00 DIRECT STA Alteplase, Recombinant 10 mg/ 250 mls @ 10 mls/hr 03/31/22 15:01 Sodium Chloride IV 04/01/22 16:00 DIRECT STA Sodium Chloride 1,000 mls @ 30 mls/hr 03/31/22 15:15 Nacl 0.9% 1000 Ml SHEATH DIRECT J LUIS Sodium Chloride 1,000 mls @ 35 mls/hr 03/31/22 15:15 Nacl 0.9% 1000 Ml EKOSCLUMEN DIRECT J LUIS Sodium Chloride 1,000 mls @ 30 mls/hr 03/31/22 15:15 Nacl 0.9% 1000 Ml SHEATH DIRECT J LUIS Sodium Chloride 1,000 mls @ 35 mls/hr 03/31/22 15:15 Nacl 0.9% 1000 Ml EKOSCLUMEN DIRECT J LUIS Heparin Sodium/Sodium Chloride 25,000 unit in 500 mls @ 10 mls/hr 03/31/22 16:00 Heparin/ 0.45% Nacl-25,000 Unit/500 Ml SHEATH DIRECT J LUIS Protocol 500 UNITS/HR Heparin Sodium/Sodium Chloride 25,000 unit in 500 mls @ 10 mls/hr 03/31/22 16:00 Heparin/ 0.45% Nacl-25,000 Unit/500 Ml SHEATH DIRECT J LUIS Protocol 500 UNITS/HR Ibuprofen 600 mg 03/29/22 17:42 Ibuprofen 600 Mg Tab PO Q6H PRN Pain, Mild (1-3) Morphine Sulfate 2 mg 03/29/22 17:42 Morphine 2 Mg/1 Ml Inj IV Q4H PRN Pain, Moderate (4-6) Morphine Sulfate 4 mg 03/31/22 15:04 04/01/22 08:43 Morphine 4 Mg/1 Ml Inj IV 4 mg Q4H PRN Administration Pain , Severe (7-10) Ondansetron HCl 4 mg 03/31/22 14:18 03/31/22 14:25 Ondansetron 4 Mg/2 Ml Inj IV 4 mg Q8H PRN Administration Nausea And Vomiting Sodium Chloride 10 ml 03/29/22 22:00 04/01/22 09:34 Sodium Chloride 0.9% 10 Ml Flush Syringe IV 10 ml BID J LUIS Administration Sodium Chloride 10 ml 03/29/22 17:42 04/01/22 02:32 Sodium Chloride 0.9% 10 Ml Flush Syringe IV 10 ml PRN PRN Administration LINE FLUSH HEART Score - HEART Score Troponin: Troponin T 0.033 ng/mL (0.00-0.029) H D 03/30/22 22:19
[2022-04-01 11:28] LABS: BUN/Creatinine Ratio 17
[2022-04-01] MEDS: POTASSIUM CHLORIDE 10 MEQ 10 MEQ/100 ML BAG IV SCH ×4 (11:34→14:15)
[2022-04-01] MEDS ORDERED: ARGATROBAN 250 MG in SODIUM CHLORIDE 0.9% 250ML 247.5 ML IV SCH (12:00)
--- NOTE | 2022-04-01 13:15 | Progress Note ---
Assessment and Plan Assessment: Bilateral PE ?RA Thrombus DKA Electrolyte Abnormalities Thrombocytopenia Type 2 NC Obesity Echo 03/30/2022: EF 50 to 55%. Mild diastolic dysfunction is present, impaired relaxation pattern. Right ventricle is mildly dilated. Septum is flattened in diastole consistent with RV volume overload. Right ventricular systolic function is normal. Mobile echo bright density present in right atrium. No aortic regurgitation. No mitral valve regurgitation. Trace tricuspid regurgitation. Trace pulmonic regurgitation. Plan: Echo showed mobile bright density in RA; however, CTA chest showed large bilateral PE. Vascular consulted. S/p EKOS 03/31/2022. Await Heme/Onc recs regarding anticoagulation in light of thrombocytopenia. Pt seen in conjunction with Dr. Gutiérrez, who agrees with the assessment and plan of care. - Patient Problems (1) Pulmonary emboli Current Visit: Yes Status: Acute (2) Thrombocytopenia Current Visit: Yes Status: Acute (3) DKA (diabetic ketoacidosis) Current Visit: Yes Status: Acute (4) Type 2 myocardial infarction Current Visit: Yes Status: Acute Subjective Date of service: 04/01/22 Principal diagnosis: Bilateral PE Interval history: S/p EKOS yesterday, tolerated well. Resting comfortably today. States her breathing is much better. SR 90-100s on tele, no events. Objective Vital Signs Temp Pulse Pulse Resp BP Pulse Ox 04/01/22 10:10 98 H 25 H 102/72 90 04/01/22 10:00 99 H 23 102/72 95 04/01/22 09:50 101 H 26 H 100/75 93 04/01/22 09:40 100 H 25 H 100/75 93 04/01/22 09:30 101 H 27 H 100/75 95 04/01/22 09:20 101 H 29 H 100/75 97 04/01/22 09:18 102 H 04/01/22 09:10 98 H 23 100/75 97 04/01/22 09:00 100 H 26 H 100/75 97 04/01/22 08:50 102 H 30 H 109/82 93 04/01/22 08:40 103 H 28 H 102/74 94 04/01/22 08:30 99 H 26 H 102/74 96 04/01/22 08:20 101 H 26 H 102/74 92 04/01/22 08:10 104 H 23 102/74 93 04/01/22 08:00 101 H 25 H 102/74 97 04/01/22 07:50 102 H 30 H 109/82 95 04/01/22 07:40 102 H 30 H 109/82 98 04/01/22 07:30 97.4 F L 102 H 102 H 21 109/82 97 04/01/22 07:20 100 H 26 H 109/82 97 04/01/22 07:10 103 H 28 H 109/82 96 04/01/22 07:00 104 H 44 H 109/82 97 04/01/22 06:50 105 H 24 95/72 95 04/01/22 06:40 103 H 18 95/72 97 04/01/22 06:30 105 H 34 H 95/72 97 04/01/22 06:23 103 H 35 H 97 04/01/22 06:20 103 H 31 H 95/72 97 04/01/22 06:10 103 H 23 95/72 95 04/01/22 06:00 102 H 25 H 95/72 92 04/01/22 05:50 102 H 24 95/71 97 04/01/22 05:40 103 H 22 95/71 98 04/01/22 05:30 104 H 23 95/71 97 04/01/22 05:20 103 H 30 H 95/71 98 04/01/22 05:10 105 H 20 95/71 65 L 04/01/22 05:00 103 H 25 H 95/71 95 04/01/22 04:50 103 H 32 H 108/78 93 04/01/22 04:40 102 H 27 H 108/78 95 04/01/22 04:30 104 H 28 H 108/78 95 04/01/22 04:20 105 H 31 H 105/77 96 04/01/22 04:10 105 H 28 H 105/77 96 04/01/22 04:00 104 H 27 H 105/77 98 04/01/22 03:50 103 H 28 H 105/77 98 04/01/22 03:40 106 H 28 H 105/77 97 04/01/22 03:30 108 H 38 H 105/77 95 04/01/22 03:20 108 H 37 H 105/77 92 04/01/22 03:10 98.3 F 106 H 33 H 105/77 94 04/01/22 03:01 18 04/01/22 03:00 108 H 31 H 105/77 95 04/01/22 02:53 111 H 35 H 97 04/01/22 02:50 112 H 30 H 105/81 94 04/01/22 02:40 109 H 25 H 105/81 91 04/01/22 02:31 31 H 04/01/22 02:30 112 H 39 H 105/81 95 04/01/22 02:20 110 H 33 H 105/81 95 04/01/22 02:10 111 H 39 H 105/81 95 04/01/22 02:00 111 H 42 H 105/81 93 04/01/22 01:50 110 H 42 H 116/82 94 04/01/22 01:40 113 H 36 H 116/82 96 04/01/22 01:30 111 H 39 H 116/82 97 04/01/22 01:28 35 H 97 04/01/22 01:20 111 H 37 H 116/82 96 04/01/22 01:10 114 H 37 H 116/82 96 04/01/22 01:00 112 H 30 H 116/82 97 04/01/22 00:55 35 H 97 04/01/22 00:50 113 H 19 125/96 97 04/01/22 00:40 109 H 29 H 125/96 96 04/01/22 00:30 98.2 F 110 H 24 125/96 98 04/01/22 00:20 110 H 30 H 125/96 97 04/01/22 00:10 109 H 22 125/96 04/01/22 00:00 110 H 22 125/96 03/31/22 23:50 111 H 26 H 106/72 97 03/31/22 23:40 111 H 28 H 106/72 97 03/31/22 23:30 112 H 34 H 106/72 97 03/31/22 23:28 97 03/31/22 23:20 111 H 26 H 106/72 97 03/31/22 23:10 111 H 19 106/72 97 03/31/22 23:00 111 H 30 H 106/72 98 03/31/22 22:50 111 H 32 H 130/89 99 03/31/22 22:40 110 H 28 H 130/89 97 03/31/22 22:30 110 H 31 H 130/89 98 03/31/22 22:20 111 H 37 H 130/89 98 03/31/22 22:10 113 H 41 H 130/89 97 03/31/22 22:00 112 H 34 H 130/89 97 03/31/22 21:50 113 H 25 H 122/93 96 03/31/22 21:40 115 H 37 H 122/93 98 03/31/22 21:30 114 H 38 H 122/93 95 03/31/22 21:20 116 H 38 H 122/93 98 03/31/22 21:10 115 H 34 H 122/93 98 03/31/22 21:00 115 H 37 H 122/93 96 03/31/22 20:50 115 H 28 H 112/91 96 03/31/22 20:40 117 H 35 H 112/91 95 03/31/22 20:30 116 H 32 H 112/91 96 03/31/22 20:20 117 H 33 H 112/91 95 03/31/22 20:10 118 H 35 H 112/91 96 03/31/22 20:00 98.0 F 119 H 38 H 109/83 96 03/31/22 19:50 118 H 41 H 109/83 93 03/31/22 19:40 117 H 24 109/83 97 03/31/22 19:39 81 35 H 97 03/31/22 19:30 118 H 20 109/83 95 03/31/22 19:20 117 H 22 109/83 98 03/31/22 19:10 116 H 31 H 109/83 98 03/31/22 19:00 115 H 36 H 109/83 98 03/31/22 18:50 116 H 30 H 121/93 96 03/31/22 18:40 117 H 26 H 121/93 97 03/31/22 18:30 117 H 38 H 121/93 96 03/31/22 18:20 116 H 25 H 121/93 95 03/31/22 18:10 118 H 31 H 121/93 97 03/31/22 18:00 120 H 13 123/95 95 03/31/22 17:50 116 H 23 123/95 95 03/31/22 17:40 117 H 28 H 123/95 94 03/31/22 17:30 117 H 31 H 123/95 94 03/31/22 17:20 117 H 34 H 123/95 93 03/31/22 17:10 117 H 34 H 94 03/31/22 17:00 117 H 39 H 96 03/31/22 16:50 115 H 33 H 94 03/31/22 16:43 115 H 26 H 98 03/31/22 16:10 36 H 93 03/31/22 16:00 98.7 F - Physical Examination General: No Apparent Distress HEENT: Positive: EOMI, Normocephaly Neck: Positive: neck supple, trachea midline Cardiac: Positive: Reg Rate and Rhythm, S1/S2 Lungs: Positive: Decreased Breath Sounds Neuro: Positive: Grossly Intact Abdomen: Positive: Soft. Negative: Tender Skin: Negative: Rash Musculoskeletal: No Pain Extremities: Present: upper extr. pulses, warm. Absent: edema - Labs and Meds Coagulation 03/31/22 Range/Units 15:15 PT 17.8 H (12.2-14.9) Sec. INR 1.27 H (0.87-1.13) APTT 29.4 (24.2-36.6) Sec. CBC 03/31/22 03/31/22 04/01/22 Range/Units 15:15 19:32 01:14 WBC 10.8 12.0 H 11.4 H (4.5-11.0) K/mm3 RBC 4.34 4.42 4.27 (3.65-5.03) M/mm3 Hgb 14.0 14.3 13.2 (10.1-14.3) gm/dl Hct 41.1 42.1 40.3 (30.3-42.9) % Plt Count 63 L 67 L 57 L (140-440) K/mm3 Lymph # (Auto) 1.7 2.4 2.5 (1.2-5.4) K/mm3 [place] # (Auto) 0.7 0.9 H 0.9 H (0.0-0.8) K/mm3 Eos # (Auto) 0.0 0.0 0.0 (0.0-0.4) K/mm3 Baso # (Auto) 0.0 0.1 0.0 (0.0-0.1) K/mm3 04/01/22 Range/Units 05:31 WBC 10.5 (4.5-11.0) K/mm3 RBC 3.99 (3.65-5.03) M/mm3 Hgb 12.9 (10.1-14.3) gm/dl Hct 37.8 (30.3-42.9) % Plt Count 55 L (140-440) K/mm3 Lymph # (Auto) 2.5 (1.2-5.4) K/mm3 [place] # (Auto) 1.0 H (0.0-0.8) K/mm3 Eos # (Auto) 0.0 (0.0-0.4) K/mm3 Baso # (Auto) 0.0 (0.0-0.1) K/mm3 Comprehensive Metabolic Panel 03/31/22 03/31/22 04/01/22 Range/Units 15:15 Unknown 01:14 Sodium 136 L 133 L 131 L (137-145) mmol/L Potassium 4.0 3.9 3.3 L (3.6-5.0) mmol/L Chloride 99.7 100.7 99.2 (98-107) mmol/L Carbon Dioxide 20 L 14 L 19 L (22-30) mmol/L BUN 22 H 21 H 13 (7-17) mg/dL Creatinine 0.9 0.7 0.6 (0.6-1.2) mg/dL Glucose 247 H 210 H 158 H (65-100) mg/dL Calcium 8.6 9.0 8.2 L (8.4-10.2) mg/dL 04/01/22 04/01/22 Range/Units 05:31 09:31 Sodium 135 L 136 L (137-145) mmol/L Potassium 3.5 L 3.1 L (3.6-5.0) mmol/L Chloride 101.9 104.1 (98-107) mmol/L Carbon Dioxide 19 L 20 L (22-30) mmol/L BUN 11 10 (7-17) mg/dL Creatinine 0.6 0.6 (0.6-1.2) mg/dL Glucose 142 H 104 H (65-100) mg/dL Calcium 7.9 L 7.5 L (8.4-10.2) mg/dL - Imaging and Cardiology EKG: report reviewed, image reviewed Echo: report reviewed - Telemetry EKG Rhythm: Sinus Rhythm - EKG Sinus rhythms and dysrhythmias: sinus tachycardia Repolarization changes or abnormalities: nonspecific abnormality, ST segment, and/or T wave Myocardial infarction: inferior NC (old age inde - Allied health notes Allied health notes reviewed: nursing
[2022-04-01] MEDS ORDERED: DEXTROSE 50% IN WATER (25GM) 50 ML SYRINGE IV PRN (14:02)
[2022-04-01] MEDS ORDERED: POTASSIUM CHLORIDE ER 20 MEQ TAB PO NR (14:04)
--- NOTE | 2022-04-01 14:04 | Progress Note ---
Assessment and Plan The patient is status post placement of EKOS thrombolysis catheters in bilateral pulmonary arteries. She states that her breathing has significantly improved since placement of the catheters. The catheters were removed at the bedside totroy anderson. After removal of the catheters manual pressure was held for approximately 10 minutes and there was no evidence of active bleeding or hematoma formation. The patient will be started on Eliquis 10 mg p.o. twice daily for 1 week and then transition to 5 mg p.o. twice daily for minimum of 6 months. She will require a hypercoagulable work-up including ruling out malignancy. I discussed this with the patient as well as family members who are present prior to removing the catheters. They expressed understanding and agreed with the plan. Subjective Date of service: 04/01/22 Principal diagnosis: Bilateral PE Interval history: The patient states her breathing is significantly improved. There were no significant events overnight. The patient has no complaints at this time. Objective - Constitutional Vitals: Vital Signs - 12hr 04/01/22 04/01/22 04/01/22 02:00 02:10 02:20 Temperature Pulse Rate 111 H 111 H 110 H Pulse Rate [ From Monitor] Respiratory 42 H 39 H 33 H Rate Blood Pressure 105/81 105/81 105/81 O2 Sat by Pulse 93 95 95 Oximetry 04/01/22 04/01/22 04/01/22 02:30 02:31 02:40 Temperature Pulse Rate 112 H 109 H Pulse Rate [ From Monitor] Respiratory 39 H 31 H 25 H Rate Blood Pressure 105/81 105/81 O2 Sat by Pulse 95 91 Oximetry 04/01/22 04/01/22 04/01/22 02:50 02:53 03:00 Temperature Pulse Rate 112 H 111 H 108 H Pulse Rate [ From Monitor] Respiratory 30 H 35 H 31 H Rate Blood Pressure 105/81 105/77 O2 Sat by Pulse 94 97 95 Oximetry 04/01/22 04/01/22 04/01/22 03:01 03:10 03:20 Temperature 98.3 F Pulse Rate 106 H 108 H Pulse Rate [ From Monitor] Respiratory 18 33 H 37 H Rate Blood Pressure 105/77 105/77 O2 Sat by Pulse 94 92 Oximetry 04/01/22 04/01/22 04/01/22 03:30 03:40 03:50 Temperature Pulse Rate 108 H 106 H 103 H Pulse Rate [ From Monitor] Respiratory 38 H 28 H 28 H Rate Blood Pressure 105/77 105/77 105/77 O2 Sat by Pulse 95 97 98 Oximetry 04/01/22 04/01/22 04/01/22 04:00 04:10 04:20 Temperature Pulse Rate 104 H 105 H 105 H Pulse Rate [ From Monitor] Respiratory 27 H 28 H 31 H Rate Blood Pressure 105/77 105/77 105/77 O2 Sat by Pulse 98 96 96 Oximetry 04/01/22 04/01/22 04/01/22 04:30 04:40 04:50 Temperature Pulse Rate 104 H 102 H 103 H Pulse Rate [ From Monitor] Respiratory 28 H 27 H 32 H Rate Blood Pressure 108/78 108/78 108/78 O2 Sat by Pulse 95 95 93 Oximetry 04/01/22 04/01/22 04/01/22 05:00 05:10 05:20 Temperature Pulse Rate 103 H 105 H 103 H Pulse Rate [ From Monitor] Respiratory 25 H 20 30 H Rate Blood Pressure 95/71 95/71 95/71 O2 Sat by Pulse 95 65 L 98 Oximetry 04/01/22 04/01/22 04/01/22 05:30 05:40 05:50 Temperature Pulse Rate 104 H 103 H 102 H Pulse Rate [ From Monitor] Respiratory 23 22 24 Rate Blood Pressure 95/71 95/71 95/71 O2 Sat by Pulse 97 98 97 Oximetry 04/01/22 04/01/22 04/01/22 06:00 06:10 06:20 Temperature Pulse Rate 102 H 103 H 103 H Pulse Rate [ From Monitor] Respiratory 25 H 23 31 H Rate Blood Pressure 95/72 95/72 95/72 O2 Sat by Pulse 92 95 97 Oximetry 04/01/22 04/01/22 04/01/22 06:23 06:30 06:40 Temperature Pulse Rate 103 H 105 H 103 H Pulse Rate [ From Monitor] Respiratory 35 H 34 H 18 Rate Blood Pressure 95/72 95/72 O2 Sat by Pulse 97 97 97 Oximetry 04/01/22 04/01/22 04/01/22 06:50 07:00 07:10 Temperature Pulse Rate 105 H 104 H 103 H Pulse Rate [ From Monitor] Respiratory 24 44 H 28 H Rate Blood Pressure 95/72 109/82 109/82 O2 Sat by Pulse 95 97 96 Oximetry 04/01/22 04/01/22 04/01/22 07:20 07:30 07:40 Temperature 97.4 F L Pulse Rate 100 H 102 H 102 H Pulse Rate [ 102 H From Monitor] Respiratory 26 H 21 30 H Rate Blood Pressure 109/82 109/82 109/82 O2 Sat by Pulse 97 97 98 Oximetry 04/01/22 04/01/22 04/01/22 07:50 08:00 08:10 Temperature Pulse Rate 102 H 101 H 104 H Pulse Rate [ From Monitor] Respiratory 30 H 25 H 23 Rate Blood Pressure 109/82 102/74 102/74 O2 Sat by Pulse 95 97 93 Oximetry 04/01/22 04/01/22 04/01/22 08:20 08:30 08:40 Temperature Pulse Rate 101 H 99 H 103 H Pulse Rate [ From Monitor] Respiratory 26 H 26 H 28 H Rate Blood Pressure 102/74 102/74 102/74 O2 Sat by Pulse 92 96 94 Oximetry 04/01/22 04/01/22 04/01/22 08:50 09:00 09:10 Temperature Pulse Rate 102 H 100 H 98 H Pulse Rate [ From Monitor] Respiratory 30 H 26 H 23 Rate Blood Pressure 109/82 100/75 100/75 O2 Sat by Pulse 93 97 97 Oximetry 04/01/22 04/01/22 04/01/22 09:18 09:20 09:30 Temperature Pulse Rate 102 H 101 H 101 H Pulse Rate [ From Monitor] Respiratory 29 H 27 H Rate Blood Pressure 100/75 100/75 O2 Sat by Pulse 97 95 Oximetry 04/01/22 04/01/22 04/01/22 09:40 09:50 10:00 Temperature Pulse Rate 100 H 101 H 99 H Pulse Rate [ From Monitor] Respiratory 25 H 26 H 23 Rate Blood Pressure 100/75 100/75 102/72 O2 Sat by Pulse 93 93 95 Oximetry 04/01/22 04/01/22 04/01/22 10:10 10:20 10:30 Temperature Pulse Rate 98 H 99 H 98 H Pulse Rate [ From Monitor] Respiratory 25 H 18 28 H Rate Blood Pressure 102/72 102/72 102/72 O2 Sat by Pulse 90 96 94 Oximetry 04/01/22 04/01/22 04/01/22 10:40 10:50 11:00 Temperature Pulse Rate 98 H 99 H 101 H Pulse Rate [ From Monitor] Respiratory 20 22 19 Rate Blood Pressure 102/72 102/72 100/77 O2 Sat by Pulse 95 94 95 Oximetry 04/01/22 04/01/22 04/01/22 11:10 11:20 11:30 Temperature Pulse Rate 111 H 107 H 109 H Pulse Rate [ From Monitor] Respiratory 30 H 22 25 H Rate Blood Pressure 100/77 100/77 100/77 O2 Sat by Pulse 95 93 96 Oximetry 04/01/22 04/01/22 04/01/22 11:40 11:50 12:00 Temperature 97.9 F Pulse Rate 106 H 106 H 110 H Pulse Rate [ 110 H From Monitor] Respiratory 18 21 24 Rate Blood Pressure 100/77 100/77 100/77 O2 Sat by Pulse 92 97 91 Oximetry 04/01/22 04/01/22 04/01/22 12:10 12:20 12:31 Temperature Pulse Rate 108 H 104 H 105 H Pulse Rate [ From Monitor] Respiratory 32 H 32 H 26 H Rate Blood Pressure 124/90 124/90 O2 Sat by Pulse 96 93 94 Oximetry 04/01/22 04/01/22 04/01/22 12:41 12:51 13:00 Temperature Pulse Rate 103 H 102 H 103 H Pulse Rate [ From Monitor] Respiratory 36 H 29 H 31 H Rate Blood Pressure 124/90 124/90 112/93 O2 Sat by Pulse 95 94 98 Oximetry 04/01/22 04/01/22 13:11 13:21 Temperature Pulse Rate 104 H 104 H Pulse Rate [ From Monitor] Respiratory 18 22 Rate Blood Pressure 112/93 112/93 O2 Sat by Pulse 99 96 Oximetry General appearance: Present: no acute distress - Respiratory Respiratory effort: normal - Cardiovascular Heart rate: 100 Rhythm: regular Extremities: no ischemia Extremity abnormal: other (Right groin dressings are clean and there is no evidence of hematoma) - Gastrointestinal General gastrointestinal: Present: soft, non-tender, non-distended - Labs CBC & Chem 7: 04/01/22 05:31 04/01/22 09:31 Labs: Abnormal lab results 03/31/22 03/31/22 03/31/22 Range/Units 15:15 15:15 15:15 WBC (4.5-11.0) K/mm3 RDW 12.6 L (13.2-15.2) % Plt Count 63 L (140-440) K/mm3 [place] % (Auto) (0.0-7.3) % [place] # (Auto) (0.0-0.8) K/mm3 Seg Neutrophils % 78.2 H (40.0-70.0) % Seg Neutrophils # 8.4 H (1.8-7.7) K/mm3 PT 17.8 H (12.2-14.9) Sec. INR 1.27 H (0.87-1.13) Heparin Anti-Xa Level (0.3-0.7) U.I./ml Sodium 136 L (137-145) mmol/L Potassium (3.6-5.0) mmol/L Carbon Dioxide 20 L (22-30) mmol/L BUN 22 H (7-17) mg/dL Glucose 247 H (65-100) mg/dL POC Glucose (70-105) mg/dL Calcium (8.4-10.2) mg/dL Ferritin (10.0-200.0) ng/mL 03/31/22 03/31/22 03/31/22 Range/Units 15:53 19:32 19:32 WBC 12.0 H (4.5-11.0) K/mm3 RDW 12.8 L (13.2-15.2) % Plt Count 67 L (140-440) K/mm3 [place] % (Auto) 7.7 H (0.0-7.3) % [place] # (Auto) 0.9 H (0.0-0.8) K/mm3 Seg Neutrophils % 72.0 H (40.0-70.0) % Seg Neutrophils # 8.7 H (1.8-7.7) K/mm3 PT (12.2-14.9) Sec. INR (0.87-1.13) Heparin Anti-Xa Level 0.77 H (0.3-0.7) U.I./ml Sodium (137-145) mmol/L Potassium (3.6-5.0) mmol/L Carbon Dioxide (22-30) mmol/L BUN (7-17) mg/dL Glucose (65-100) mg/dL POC Glucose 241 H (70-105) mg/dL Calcium (8.4-10.2) mg/dL Ferritin (10.0-200.0) ng/mL 03/31/22 03/31/22 03/31/22 Range/Units 20:59 21:49 Unknown WBC (4.5-11.0) K/mm3 RDW (13.2-15.2) % Plt Count (140-440) K/mm3 [place] % (Auto) (0.0-7.3) % [place] # (Auto) (0.0-0.8) K/mm3 Seg Neutrophils % (40.0-70.0) % Seg Neutrophils # (1.8-7.7) K/mm3 PT (12.2-14.9) Sec. INR (0.87-1.13) Heparin Anti-Xa Level (0.3-0.7) U.I./ml Sodium 133 L (137-145) mmol/L Potassium (3.6-5.0) mmol/L Carbon Dioxide 14 L (22-30) mmol/L BUN 21 H (7-17) mg/dL Glucose 210 H (65-100) mg/dL POC Glucose 107 H 121 H (70-105) mg/dL Calcium (8.4-10.2) mg/dL Ferritin (10.0-200.0) ng/mL 03/31/22 04/01/22 04/01/22 Range/Units Unknown 00:46 01:14 WBC (4.5-11.0) K/mm3 RDW (13.2-15.2) % Plt Count (140-440) K/mm3 [place] % (Auto) (0.0-7.3) % [place] # (Auto) (0.0-0.8) K/mm3 Seg Neutrophils % (40.0-70.0) % Seg Neutrophils # (1.8-7.7) K/mm3 PT (12.2-14.9) Sec. INR (0.87-1.13) Heparin Anti-Xa Level (0.3-0.7) U.I./ml Sodium 131 L (137-145) mmol/L Potassium 3.3 L (3.6-5.0) mmol/L Carbon Dioxide 19 L (22-30) mmol/L BUN (7-17) mg/dL Glucose 158 H (65-100) mg/dL POC Glucose 173 H (70-105) mg/dL Calcium 8.2 L (8.4-10.2) mg/dL Ferritin 453.4 H (10.0-200.0) ng/mL 04/01/22 04/01/22 04/01/22 Range/Units 01:14 01:14 03:10 WBC 11.4 H (4.5-11.0) K/mm3 RDW 13.0 L (13.2-15.2) % Plt Count 57 L (140-440) K/mm3 [place] % (Auto) 8.1 H (0.0-7.3) % [place] # (Auto) 0.9 H (0.0-0.8) K/mm3 Seg Neutrophils % 70.2 H (40.0-70.0) % Seg Neutrophils # 8.0 H (1.8-7.7) K/mm3 PT (12.2-14.9) Sec. INR (0.87-1.13) Heparin Anti-Xa Level 0.15 L (0.3-0.7) U.I./ml Sodium (137-145) mmol/L Potassium (3.6-5.0) mmol/L Carbon Dioxide (22-30) mmol/L BUN (7-17) mg/dL Glucose (65-100) mg/dL POC Glucose 113 H (70-105) mg/dL Calcium (8.4-10.2) mg/dL Ferritin (10.0-200.0) ng/mL 04/01/22 04/01/22 04/01/22 Range/Units 05:31 05:31 05:31 WBC (4.5-11.0) K/mm3 RDW 12.8 L (13.2-15.2) % Plt Count 55 L (140-440) K/mm3 [place] % (Auto) 9.7 H (0.0-7.3) % [place] # (Auto) 1.0 H (0.0-0.8) K/mm3 Seg Neutrophils % (40.0-70.0) % Seg Neutrophils # (1.8-7.7) K/mm3 PT (12.2-14.9) Sec. INR (0.87-1.13) Heparin Anti-Xa Level 0.15 L (0.3-0.7) U.I./ml Sodium 135 L (137-145) mmol/L Potassium 3.5 L (3.6-5.0) mmol/L Carbon Dioxide 19 L (22-30) mmol/L BUN (7-17) mg/dL Glucose 142 H (65-100) mg/dL POC Glucose (70-105) mg/dL Calcium 7.9 L (8.4-10.2) mg/dL Ferritin (10.0-200.0) ng/mL 04/01/22 04/01/22 04/01/22 Range/Units 06:20 09:31 09:37 WBC (4.5-11.0) K/mm3 RDW (13.2-15.2) % Plt Count (140-440) K/mm3 [place] % (Auto) (0.0-7.3) % [place] # (Auto) (0.0-0.8) K/mm3 Seg Neutrophils % (40.0-70.0) % Seg Neutrophils # (1.8-7.7) K/mm3 PT (12.2-14.9) Sec. INR (0.87-1.13) Heparin Anti-Xa Level (0.3-0.7) U.I./ml Sodium 136 L (137-145) mmol/L Potassium 3.1 L (3.6-5.0) mmol/L Carbon Dioxide 20 L (22-30) mmol/L BUN (7-17) mg/dL Glucose 104 H (65-100) mg/dL POC Glucose 154 H 115 H (70-105) mg/dL Calcium 7.5 L (8.4-10.2) mg/dL Ferritin (10.0-200.0) ng/mL 04/01/22 04/01/22 Range/Units 10:38 11:43 WBC (4.5-11.0) K/mm3 RDW (13.2-15.2) % Plt Count (140-440) K/mm3 [place] % (Auto) (0.0-7.3) % [place] # (Auto) (0.0-0.8) K/mm3 Seg Neutrophils % (40.0-70.0) % Seg Neutrophils # (1.8-7.7) K/mm3 PT (12.2-14.9) Sec. INR (0.87-1.13) Heparin Anti-Xa Level (0.3-0.7) U.I./ml Sodium (137-145) mmol/L Potassium (3.6-5.0) mmol/L Carbon Dioxide (22-30) mmol/L BUN (7-17) mg/dL Glucose (65-100) mg/dL POC Glucose 117 H 116 H (70-105) mg/dL Calcium (8.4-10.2) mg/dL Ferritin (10.0-200.0) ng/mL Medications & Allergies - Medications Allergies/Adverse Reactions: Allergies No Known Allergies Allergy (Unverified 03/29/22 14:51) Home Medications: Home Medications Medication Instructions Recorded Confirmed Last Taken Type No Known Home Medications [No 03/31/22 03/31/22 Unknown History Reported Home Medications] Active Medications: Generic Name Dose Route Start Last Admin Trade Name Freq PRN Reason Stop Dose Admin Acetaminophen 650 mg 03/31/22 15:04 Acetaminophen 325 Mg Tab PO Q6H PRN Pain, Mild (1-3) Alprazolam 0.25 mg 03/30/22 13:00 03/31/22 22:02 Alprazolam 0.25 Mg Tab PO 0.25 mg Q8H PRN Administration Anxiety Apixaban 10 mg 04/01/22 14:00 Apixaban 5 Mg Tab PO 04/07/22 22:01 Q12HR J LUIS Protocol Apixaban 5 mg 04/08/22 10:00 Apixaban 5 Mg Tab PO 10/05/22 09:59 Q12HR J LUIS Protocol Dextrose 0 ml 03/31/22 09:28 Dextrose 50% In Water (25gm) 50 Ml Syringe IV Q30MIN PRN Hypoglycemia Protocol Dextrose/Sodium Chloride 1,000 mls @ 125 mls/hr 03/31/22 10:00 04/01/22 11:34 D5/0.45ns IV 0 mls/hr DIRECT J LUIS Infusion Insulin Human Regular 100 100 mls @ 1 mls/hr 03/31/22 10:00 04/01/22 11:34 units/ Sodium Chloride IV 0 units/hr TITR J LUIS 0 mls/hr Titration Protocol 1 UNITS/HR Potassium Chloride 10 meq in 100 mls @ 100 mls/hr 03/31/22 09:28 Kcl 10meq/100ml IV Q1H PRN LOW Potassium Levels Potassium Chloride 10 meq in 100 mls @ 100 mls/hr 03/31/22 09:28 Kcl 10meq/100ml IV Q1H PRN LOW Potassium Levels Potassium Chloride 10 meq in 100 mls @ 100 mls/hr 04/01/22 12:00 04/01/22 12:37 Kcl 10meq/100ml IV 04/01/22 15:59 100 mls/hr Q1H J LUIS Administration Ibuprofen 600 mg 03/29/22 17:42 Ibuprofen 600 Mg Tab PO Q6H PRN Pain, Mild (1-3) Morphine Sulfate 2 mg 03/29/22 17:42 Morphine 2 Mg/1 Ml Inj IV Q4H PRN Pain, Moderate (4-6) Ondansetron HCl 4 mg 03/31/22 14:18 03/31/22 14:25 Ondansetron 4 Mg/2 Ml Inj IV 4 mg Q8H PRN Administration Nausea And Vomiting Sodium Chloride 10 ml 03/29/22 22:00 04/01/22 09:34 Sodium Chloride 0.9% 10 Ml Flush Syringe IV 10 ml BID J LUIS Administration Sodium Chloride 10 ml 03/29/22 17:42 04/01/22 02:32 Sodium Chloride 0.9% 10 Ml Flush Syringe IV 10 ml PRN PRN Administration LINE FLUSH HEART Score - HEART Score Troponin: Troponin T 0.033 ng/mL (0.00-0.029) H D 03/30/22 22:19
[2022-04-01] MEDS: MORPHINE 2 MG/1 ML INJ IV PRN (14:25)
[2022-04-01] MEDS: APIXABAN 5 MG TAB PO SCH ×2 (14:26→21:41)
[2022-04-01] MEDS: INSULIN GLARGINE 100 UNITS/ML SUB-Q SCH (14:36)
--- NOTE | 2022-04-01 14:48 | Progress Note ---
<CHUYCLIFF CasiRenu - Last Filed: 04/01/22 14:40> Assessment and Plan Assessment and plan: Assessment and Plan: This is a 46-year-old female with anxiety admitted with DKA, pulmonary embolism s/p EKOS Neuro: h/o anxiety -Reorientation as needed -Verbal de-escalation as needed -Maintain sleep-wake cycle Cardio: Type II TN -Presented with chest pain -Cardiology consulted, appreciate recommendations -Blood pressure monitoring per protocol -Echo 03/30/2022: EF 50 to 55%. Septum is flattened in diastole consistent with RV volume overload. Right ventricular systolic function is normal. Mobile echo bright density present in right atrium. Pulmonary: Submassive pulmonary embolism -CTA shows large submassive BL PE, RV strain visible. -CCM and vascular surgery consulted, appreciate recommendations -S/p EKOS on 03/31/2022 -Pulmonary hygiene -Supplemental oxygen as needed -SPO2 monitoring GI: Morbid obesity -CC diet -24 hours +1467 ml -PPI -BR Colace -Encourage dietary and lifestyle modifications upon discharge : Hyponatremia, high anion gap metabolic acidosis, hypokalemia -Monitor intake and output -Replete potassium -Renally dose medications -Avoid nephrotoxic medications -Trend BMP Endocrine: s/p DKA, DM -Presented with anion gap of 19, blood glucose 574, ketonuria and VBG with a pH of 7.2 -Anion gap closed -Transition to SSI and long-acting insulin -Hemoglobin A1c 10.1 -CC diet -Avoid hypoglycemia ID: [id number] -Monitor WBC and temperature curve Heme: Thrombocytopenia, unprovoked pulmonary embolism -Hematology/oncology consulted, appreciate recommendations -Argatroban drip -HIT panel pending -Cardiolipin antibody screen, hemoglobinopathy evaluation, Augustine 2 mutation pending -Trend CBC -Transfuse hemoglobin less than 7 -CT abd/pelvis with con pending -Pelvis US pending -Will need colonoscopy (possibly outpatient) as mother has colon cancer The high probability of a clinically significant, sudden or life threatening deterioration of the [multi] system(s) required my full and direct attention, intervention and personal management. The aggregate critical care time was [60] minutes. This time is in addition to time spent performing reported procedures but includes the following: [x] Data Review and interpretation [x] Patient assessment and monitoring of vital signs [x] Documentation [x] Medication orders and management Disposition Plan: icu Total Time Spent with Patient (Minutes): 60 History Interval history: This is a 46-year-old -[place]ian female with anxiety who presented to the emergency department on 03/29 with a 10 to 14-day history of weakness and shortness of breath with some nausea via EMS. Blood glucose Accu-Chek was very high above 500. Work-up in the emergency department revealed elevated blood glucose with increased anion gap and patient was admitted to the hospitalist service with new diagnosis of diabetes mellitus and for DKA to ICU for IV insulin drip and IV fluids with consult to cardiology and CCM. Hospital Course: 03/31: AG remains open: 21. Continue insulin gtt/IVF per dka protocol. K noted to be elevated, fluids modified to D5w/1/2NS. D/w Cardiology, right atrial mass visualized on TTE. Will need KRISTIE on sunday. NM stress canceled. Vascular surgery and heme-onc consulted. 04/01: S/p thrombectomy with EKOS catheter in place on heparin drip. To be started on argatroban drip per heme-onc. Patient remained insulin drip for this afternoon after removal of EKOS catheter she was transitioned to SSI, CC diet and long-acting insulin. Potassium repleted. Patient states she hasnt had a mammogram, colonoscopy, no personal history of cancer, no use of control. Patient states her mother does have colon cancer. Hospitalist Physical - Constitutional Vitals: Temp Pulse Resp BP Pulse Ox 97.9 F 100 H 36 H 119/76 98 04/01/22 12:00 04/01/22 14:00 04/01/22 14:00 04/01/22 14:00 04/01/22 14:00 General appearance: Present: no acute distress - EENT Eyes: Present: PERRL, EOM intact ENT: hearing intact, clear oral mucosa, dentition normal - Neck Neck: Present: normal ROM - Respiratory Respiratory effort: normal Respiratory: bilateral: CTA, diminished - Cardiovascular Rhythm: regular Heart Sounds: Present: S1 & S2. Absent: systolic murmur, diastolic murmur - Extremities Extremities: no ischemia, pulses intact, pulses symmetrical, No edema, normal temperature, normal color Peripheral Pulses: within normal limits - Abdominal General gastrointestinal: soft, non-tender, normal bowel sounds - Integumentary Integumentary: Present: warm, dry - Psychiatric Psychiatric: cooperative - Neurologic Neurologic: CNII-XII intact, no focal deficits, moves all extremities - Allied Health Allied health notes reviewed: nursing, RT HEART Score - HEART Score Troponin: Troponin T 0.033 ng/mL (0.00-0.029) H D 03/30/22 22:19 Results - Labs CBC & Chem 7: 04/01/22 05:31 04/01/22 09:31 Labs: Laboratory Last Values WBC 10.5 K/mm3 (4.5-11.0) 04/01/22 05:31 RBC 3.99 M/mm3 (3.65-5.03) 04/01/22 05:31 Hgb 12.9 gm/dl (10.1-14.3) 04/01/22 05:31 Hct 37.8 % (30.3-42.9) 04/01/22 05:31 MCV 95 fl (79-97) 04/01/22 05:31 MCH 32 pg (28-32) 04/01/22 05:31 MCHC 34 % (30-34) 04/01/22 05:31 RDW 12.8 % (13.2-15.2) L 04/01/22 05:31 Plt Count 55 K/mm3 (140-440) L 04/01/22 05:31 Lymph % (Auto) 23.7 % (13.4-35.0) 04/01/22 05:31 White % (Auto) 9.7 % (0.0-7.3) H 04/01/22 05:31 Eos % (Auto) 0.3 % (0.0-4.3) 04/01/22 05:31 Baso % (Auto) 0.3 % (0.0-1.8) 04/01/22 05:31 Lymph # (Auto) 2.5 K/mm3 (1.2-5.4) 04/01/22 05:31 White # (Auto) 1.0 K/mm3 (0.0-0.8) H 04/01/22 05:31 Eos # (Auto) 0.0 K/mm3 (0.0-0.4) 04/01/22 05:31 Baso # (Auto) 0.0 K/mm3 (0.0-0.1) 04/01/22 05:31 Seg Neutrophils % 66.0 % (40.0-70.0) 04/01/22 05:31 Seg Neutrophils # 6.9 K/mm3 (1.8-7.7) 04/01/22 05:31 PT 17.8 Sec. (12.2-14.9) H 03/31/22 15:15 INR 1.27 (0.87-1.13) H 03/31/22 15:15 APTT 29.4 Sec. (24.2-36.6) 03/31/22 15:15 Fibrinogen 330 mg/dl (211-480) 04/01/22 05:31 Heparin Anti-Xa Level 0.15 U.I./ml (0.3-0.7) L 04/01/22 05:31 VBG pH 7.213 (7.320-7.420) L 03/29/22 15:49 Sodium 136 mmol/L (137-145) L 04/01/22 09:31 Potassium 3.1 mmol/L (3.6-5.0) L 04/01/22 09:31 Chloride 104.1 mmol/L (98-107) 04/01/22 09:31 Carbon Dioxide 20 mmol/L (22-30) L 04/01/22 09:31 Anion Gap 15 mmol/L 04/01/22 09:31 BUN 10 mg/dL (7-17) 04/01/22 09:31 Creatinine 0.6 mg/dL (0.6-1.2) 04/01/22 09:31 Estimated GFR > 60 ml/min 04/01/22 09:31 BUN/Creatinine Ratio 17 % 04/01/22 09:31 Glucose 104 mg/dL (65-100) H 04/01/22 09:31 POC Glucose 116 mg/dL (70-105) H 04/01/22 11:43 Hemoglobin A1c 10.1 % (4-6) H 03/30/22 12:05 Calcium 7.5 mg/dL (8.4-10.2) L 04/01/22 09:31 Phosphorus 4.00 mg/dL (2.5-4.5) 03/31/22 09:43 Magnesium 1.80 mg/dL (1.7-2.3) 03/31/22 09:43 Iron 40 ug/dL (37-170) 03/31/22 Unknown TIBC 368 mcg/dL (250-450) 03/31/22 Unknown Ferritin 453.4 ng/mL (10.0-200.0) H 03/31/22 Unknown Total Bilirubin 0.50 mg/dL (0.1-1.2) 03/29/22 15:49 AST 217 units/L (5-40) H 03/29/22 15:49 ALT 206 units/L (7-56) H 03/29/22 15:49 Alkaline Phosphatase 79 units/L (35-129) 03/29/22 15:49 Total Creatine Kinase 146 units/L (30-135) H 03/29/22 15:49 CK-MB (CK-2) 5.1 ng/mL (0.0-4.0) H 03/29/22 15:49 CK-MB (CK-2) Rel Index 3.4 (0-4) 03/29/22 15:49 Troponin T 0.033 ng/mL (0.00-0.029) H D 03/30/22 22:19 Total Protein 7.2 g/dL (6.3-8.2) 03/29/22 15:49 Albumin 4.2 g/dL (3.9-5) 03/29/22 15:49 Albumin/Globulin Ratio 1.4 % 03/29/22 15:49 Triglycerides 168 mg/dL (2-149) H 03/29/22 15:49 Cholesterol 190 mg/dL (50-199) 03/29/22 15:49 LDL Cholesterol Direct 127 mg/dL (50-130) 03/29/22 15:49 HDL Cholesterol 52 mg/dL (40-59) 03/29/22 15:49 Cholesterol/HDL Ratio 3.65 % 03/29/22 15:49 TSH 1.120 mlU/mL (0.270-4.200) 03/29/22 15:49 Free T4 1.42 ng/dL (0.76-1.46) 03/29/22 15:49 HCG, Qual Negative (Negative) 03/29/22 15:49 Urine Color Yellow (Yellow) 03/30/22 06:43 Urine Turbidity Slightly-cloudy (Clear) 03/30/22 06:43 Urine pH 5.0 (5.0-7.0) 03/30/22 06:43 Ur Specific [place] 1.020 (1.003-1.030) 03/30/22 06:43 Urine Protein 100 mg/dl mg/dL (Negative) 03/30/22 06:43 Urine Glucose (UA) >=500 mg/dL (Negative) 03/30/22 06:43 Urine Ketones 20 mg/dL (Negative) 03/30/22 06:43 Urine Blood Mod (Negative) 03/30/22 06:43 Urine Nitrite Neg (Negative) 03/30/22 06:43 Urine Bilirubin Neg (Negative) 03/30/22 06:43 Urine Urobilinogen 2.0 mg/dL (<2.0) 03/30/22 06:43 Ur Leukocyte Esterase Neg (Negative) 03/30/22 06:43 Urine WBC (Auto) 4.0 /HPF (0.0-6.0) 03/30/22 06:43 Urine RBC (Auto) 9.0 /HPF (0.0-6.0) 03/30/22 06:43 U Epithel Cells (Auto) 9.0 /HPF (0-13.0) 03/30/22 06:43 Urine Bacteria (Auto) 1+ /HPF (Negative) 03/30/22 06:43 Hyaline Casts 54 /LPF 03/30/22 06:43 Urine Mucus Few /HPF 03/30/22 06:43 Urine Opiates Screen Negative 03/30/22 06:43 Urine Methadone Screen Negative 03/30/22 06:43 Ur Barbiturates Screen Negative 03/30/22 06:43 Ur Phencyclidine Scrn Negative 03/30/22 06:43 Ur Amphetamines Screen Negative 03/30/22 06:43 U Benzodiazepines Scrn Negative 03/30/22 06:43 Urine Cocaine Screen Negative 03/30/22 06:43 U Marijuana (THC) Screen Negative 03/30/22 06:43 Drugs of Abuse Note Disclamer 03/30/22 06:43 Mcclain/IV: Voiding Method External Female Catheter Active Medications - Current Medications Current Medications: Generic Name Dose Route Start Last Admin Trade Name Freq PRN Reason Stop Dose Admin Acetaminophen 650 mg 03/31/22 15:04 Acetaminophen 325 Mg Tab PO Q6H PRN Pain, Mild (1-3) Alprazolam 0.25 mg 03/30/22 13:00 03/31/22 22:02 Alprazolam 0.25 Mg Tab PO 0.25 mg Q8H PRN Administration Anxiety Apixaban 10 mg 04/01/22 14:30 04/01/22 14:26 Apixaban 5 Mg Tab PO 04/07/22 22:01 10 mg Q12HR J LUIS Administration Protocol Apixaban 5 mg 04/08/22 10:00 Apixaban 5 Mg Tab PO 10/05/22 09:59 Q12HR J LUIS Protocol Dextrose 50 ml 04/01/22 14:02 Dextrose 50% In Water (25gm) 50 Ml Syringe IV Q30MIN PRN Hypoglycemia Protocol Dextrose/Sodium Chloride 1,000 mls @ 125 mls/hr 03/31/22 10:00 04/01/22 11:34 D5/0.45ns IV 0 mls/hr DIRECT J LUIS Infusion Potassium Chloride 10 meq in 100 mls @ 100 mls/hr 03/31/22 09:28 Kcl 10meq/100ml IV Q1H PRN LOW Potassium Levels Potassium Chloride 10 meq in 100 mls @ 100 mls/hr 03/31/22 09:28 Kcl 10meq/100ml IV Q1H PRN LOW Potassium Levels Potassium Chloride 10 meq in 100 mls @ 100 mls/hr 04/01/22 12:00 04/01/22 14:15 Kcl 10meq/100ml IV 04/01/22 15:59 0 mls/hr Q1H J LUIS Infusion Ibuprofen 600 mg 03/29/22 17:42 Ibuprofen 600 Mg Tab PO Q6H PRN Pain, Mild (1-3) Insulin Glargine 10 units 04/01/22 14:30 04/01/22 14:36 Insulin Glargine 100 Units/Ml SUB-Q 10 units QAMDIAB J LUIS Administration Insulin Human Lispro 0 unit 04/01/22 16:30 Insulin Lispro 100 Unit/Ml SUB-Q ACHS J LUIS Protocol Morphine Sulfate 2 mg 03/29/22 17:42 04/01/22 14:25 Morphine 2 Mg/1 Ml Inj IV 2 mg Q4H PRN Administration Pain, Moderate (4-6) Ondansetron HCl 4 mg 03/31/22 14:18 03/31/22 14:25 Ondansetron 4 Mg/2 Ml Inj IV 4 mg Q8H PRN Administration Nausea And Vomiting Potassium Chloride 20 meq 04/01/22 14:04 04/01/22 14:26 Potassium Chloride Er 20 Meq Tab PO 04/01/22 15:00 20 meq ONCE NR Administration Sodium Chloride 10 ml 03/29/22 22:00 04/01/22 09:34 Sodium Chloride 0.9% 10 Ml Flush Syringe IV 10 ml BID J LUIS Administration Sodium Chloride 10 ml 03/29/22 17:42 04/01/22 02:32 Sodium Chloride 0.9% 10 Ml Flush Syringe IV 10 ml PRN PRN Administration LINE FLUSH Nutrition/Malnutrition Assess - Dietary Evaluation Nutrition/Malnutrition Findings: Nutrition Notes Start: 03/30/22 12:49 Freq: Status: Active Protocol: Document 03/30/22 12:49 CORY (Rec: 03/30/22 12:58 CORY [id number]) Nutrition Notes Need for Assessment generated from: MD Order,Education Initial or Follow up Brief Note Current Diagnosis Diabetes Other Pertinent Diagnosis DKA, Chest Pain, Elevated Troponin, Metabolic Acidosis, Anxiety. Current Diet Consistent Carbohydrates Diet (since B 03/30), NPO (from 00:01). Height 5 ft 3 in Weight 86.183 kg [place] Body Weight (kg) 52.27 BMI 33.6 Weight change and time frame None provided at admission. Weight Status Obese Subjective/Other Information RD consult for nutrition education assessment. Pt currently on Consistent Carbohydrates Diet, but will be NPO after midnight, no reports available on Pt's PO intake of meals at the time, will assess at F/U. Pt is on Nasal Cannula, O2 saturation @ 98%, according to Vital Signs notes. Pt still in critical condition , not a candidate for Nutrition Education at the time, will assess feasibility on F/U. Percent of energy/protein needs met: Prescribed Consistent Carbohydrates Diet provides for energy/protein needs (2, 061 Kcal/91 g) during LOS. Nutrition Intervention Follow-Up By: 04/06/22 Additional Comments Nutrition education will be provided at F/U, if feasible. Continue monitoring food tolerance, %PO intake of meals , and BM. <KAREN CARRANZA - Last Filed: 04/04/22 13:26> History Interval history: I saw and evaluated the patient. Discussed with the nurse practitioner and agree with their findings and plan as documented in this note. Hospitalist Physical - Constitutional Vitals: Temp Pulse Resp BP Pulse Ox 98.8 F 76 22 166/119 95 04/04/22 04:42 04/04/22 09:38 04/03/22 22:51 04/04/22 09:38 04/04/22 04:42 HEART Score - HEART Score Troponin: Troponin T 0.033 ng/mL (0.00-0.029) H D 03/30/22 22:19 Results - Labs CBC & Chem 7: 04/04/22 06:32 04/02/22 04:15 Labs: Laboratory Last Values WBC 6.4 K/mm3 (4.5-11.0) 04/04/22 06:32 RBC 4.32 M/mm3 (3.65-5.03) 04/04/22 06:32 Hgb 13.7 gm/dl (10.1-14.3) 04/04/22 06:32 Hct 40.2 % (30.3-42.9) 04/04/22 06:32 MCV 93 fl (79-97) 04/04/22 06:32 MCH 32 pg (28-32) 04/04/22 06:32 MCHC 34 % (30-34) 04/04/22 06:32 RDW 12.5 % (13.2-15.2) L 04/04/22 06:32 Plt Count 110 K/mm3 (140-440) L 04/04/22 06:32 Lymph % (Auto) 23.7 % (13.4-35.0) 04/01/22 05:31 White % (Auto) 9.7 % (0.0-7.3) H 04/01/22 05:31 Eos % (Auto) 0.3 % (0.0-4.3) 04/01/22 05:31 Baso % (Auto) 0.3 % (0.0-1.8) 04/01/22 05:31 Lymph # (Auto) 2.5 K/mm3 (1.2-5.4) 04/01/22 05:31 White # (Auto) 1.0 K/mm3 (0.0-0.8) H 04/01/22 05:31 Eos # (Auto) 0.0 K/mm3 (0.0-0.4) 04/01/22 05:31 Baso # (Auto) 0.0 K/mm3 (0.0-0.1) 04/01/22 05:31 Seg Neutrophils % 66.0 % (40.0-70.0) 04/01/22 05:31 Seg Neutrophils # 6.9 K/mm3 (1.8-7.7) 04/01/22 05:31 PT 19.3 Sec. (12.2-14.9) H 04/01/22 16:04 INR 1.44 (0.87-1.13) H 04/01/22 16:04 APTT 32.3 Sec. (24.2-36.6) 04/01/22 16:04 Fibrinogen 330 mg/dl (211-480) 04/01/22 05:31 Heparin Anti-Xa Level 0.15 U.I./ml (0.3-0.7) L 04/01/22 05:31 VBG pH 7.213 (7.320-7.420) L 03/29/22 15:49 Sodium 139 mmol/L (137-145) 04/02/22 04:15 Potassium 3.6 mmol/L (3.6-5.0) 04/02/22 04:15 Chloride 105.7 mmol/L (98-107) 04/02/22 04:15 Carbon Dioxide 23 mmol/L (22-30) 04/02/22 04:15 Anion Gap 14 mmol/L 04/02/22 04:15 BUN 9 mg/dL (7-17) 04/02/22 04:15 Creatinine 0.7 mg/dL (0.6-1.2) 04/02/22 04:15 Estimated GFR > 60 ml/min 04/02/22 04:15 BUN/Creatinine Ratio 13 % 04/02/22 04:15 Glucose 111 mg/dL (65-100) H 04/02/22 04:15 POC Glucose 227 mg/dL (70-105) H 04/04/22 11:12 Hemoglobin A1c 10.1 % (4-6) H 03/30/22 12:05 Calcium 8.2 mg/dL (8.4-10.2) L 04/02/22 04:15 Phosphorus 4.00 mg/dL (2.5-4.5) 03/31/22 09:43 Magnesium 1.70 mg/dL (1.7-2.3) 04/02/22 04:15 Iron 40 ug/dL (37-170) 03/31/22 Unknown TIBC 368 mcg/dL (250-450) 03/31/22 Unknown Ferritin 453.4 ng/mL (10.0-200.0) H 03/31/22 Unknown Total Bilirubin 0.50 mg/dL (0.1-1.2) 03/29/22 15:49 AST 217 units/L (5-40) H 03/29/22 15:49 ALT 206 units/L (7-56) H 03/29/22 15:49 Alkaline Phosphatase 79 units/L (35-129) 03/29/22 15:49 Total Creatine Kinase 146 units/L (30-135) H 03/29/22 15:49 CK-MB (CK-2) 5.1 ng/mL (0.0-4.0) H 03/29/22 15:49 CK-MB (CK-2) Rel Index 3.4 (0-4) 03/29/22 15:49 Troponin T 0.033 ng/mL (0.00-0.029) H D 03/30/22 22:19 Total Protein 7.2 g/dL (6.3-8.2) 03/29/22 15:49 Albumin 4.2 g/dL (3.9-5) 03/29/22 15:49 Albumin/Globulin Ratio 1.4 % 03/29/22 15:49 Triglycerides 168 mg/dL (2-149) H 03/29/22 15:49 Cholesterol 190 mg/dL (50-199) 03/29/22 15:49 LDL Cholesterol Direct 127 mg/dL (50-130) 03/29/22 15:49 HDL Cholesterol 52 mg/dL (40-59) 03/29/22 15:49 Cholesterol/HDL Ratio 3.65 % 03/29/22 15:49 TSH 1.120 mlU/mL (0.270-4.200) 03/29/22 15:49 Free T4 1.42 ng/dL (0.76-1.46) 03/29/22 15:49 HCG, Qual Negative (Negative) 03/29/22 15:49 Urine Color Yellow (Yellow) 03/30/22 06:43 Urine Turbidity Slightly-cloudy (Clear) 03/30/22 06:43 Urine pH 5.0 (5.0-7.0) 03/30/22 06:43 Ur Specific [place] 1.020 (1.003-1.030) 03/30/22 06:43 Urine Protein 100 mg/dl mg/dL (Negative) 03/30/22 06:43 Urine Glucose (UA) >=500 mg/dL (Negative) 03/30/22 06:43 Urine Ketones 20 mg/dL (Negative) 03/30/22 06:43 Urine Blood Mod (Negative) 03/30/22 06:43 Urine Nitrite Neg (Negative) 03/30/22 06:43 Urine Bilirubin Neg (Negative) 03/30/22 06:43 Urine Urobilinogen 2.0 mg/dL (<2.0) 03/30/22 06:43 Ur Leukocyte Esterase Neg (Negative) 03/30/22 06:43 Urine WBC (Auto) 4.0 /HPF (0.0-6.0) 03/30/22 06:43 Urine RBC (Auto) 9.0 /HPF (0.0-6.0) 03/30/22 06:43 U Epithel Cells (Auto) 9.0 /HPF (0-13.0) 03/30/22 06:43 Urine Bacteria (Auto) 1+ /HPF (Negative) 03/30/22 06:43 Hyaline Casts 54 /LPF 03/30/22 06:43 Urine Mucus Few /HPF 03/30/22 06:43 Urine Opiates Screen Negative 03/30/22 06:43 Urine Methadone Screen Negative 03/30/22 06:43 Ur Barbiturates Screen Negative 03/30/22 06:43 Ur Phencyclidine Scrn Negative 03/30/22 06:43 Ur Amphetamines Screen Negative 03/30/22 06:43 U Benzodiazepines Scrn Negative 03/30/22 06:43 Urine Cocaine Screen Negative 03/30/22 06:43 U Marijuana (THC) Screen Negative 03/30/22 06:43 Drugs of Abuse Note Disclamer 03/30/22 06:43 Mcclain/IV: Voiding Method Toilet Active Medications - Current Medications Current Medications: Generic Name Dose Route Start Last Admin Trade Name Freq PRN Reason Stop Dose Admin Acetaminophen 650 mg 03/31/22 15:04 04/01/22 21:40 Acetaminophen 325 Mg Tab PO 650 mg Q6H PRN Administration Pain, Mild (1-3) Alprazolam 0.25 mg 03/30/22 13:00 04/04/22 09:01 Alprazolam 0.25 Mg Tab PO 0.25 mg Q8H PRN Administration Anxiety Apixaban 10 mg 04/01/22 14:30 04/04/22 09:02 Apixaban 5 Mg Tab PO 04/07/22 22:01 10 mg Q12HR J LUIS Administration Protocol Apixaban 5 mg 04/08/22 10:00 Apixaban 5 Mg Tab PO 10/05/22 09:59 Q12HR J LUIS Protocol Dextrose 50 ml 04/01/22 14:02 Dextrose 50% In Water (25gm) 50 Ml Syringe IV Q30MIN PRN Hypoglycemia Protocol Hydralazine HCl 10 mg 04/02/22 13:54 04/03/22 09:57 Hydralazine 20 Mg/1 Ml Inj IV 10 mg Q4HR PRN Administration Blood Pressure Potassium Chloride 10 meq in 100 mls @ 100 mls/hr 03/31/22 09:28 Kcl 10meq/100ml IV Q1H PRN LOW Potassium Levels Potassium Chloride 10 meq in 100 mls @ 100 mls/hr 03/31/22 09:28 Kcl 10meq/100ml IV Q1H PRN LOW Potassium Levels Insulin Glargine 10 units 04/01/22 14:30 04/04/22 12:17 Insulin Glargine 100 Units/Ml SUB-Q 10 units QAMDIAB J LUIS Administration Insulin Human Lispro 0 unit 04/01/22 16:30 04/04/22 09:10 Insulin Lispro 100 Unit/Ml SUB-Q Not Given ACHS [facility] Protocol Lisinopril 20 mg 04/03/22 16:00 04/03/22 16:59 Lisinopril 20 Mg Tab PO 20 mg QDAY J LUIS Administration Morphine Sulfate 2 mg 03/29/22 17:42 04/03/22 20:13 Morphine 2 Mg/1 Ml Inj IV 2 mg Q4H PRN Administration Pain, Moderate (4-6) Ondansetron HCl 4 mg 03/31/22 14:18 03/31/22 14:25 Ondansetron 4 Mg/2 Ml Inj IV 4 mg Q8H PRN Administration Nausea And Vomiting Sodium Chloride 10 ml 03/29/22 22:00 04/04/22 12:18 Sodium Chloride 0.9% 10 Ml Flush Syringe IV 10 ml BID J LUIS Administration Sodium Chloride 10 ml 03/29/22 17:42 04/01/22 02:32 Sodium Chloride 0.9% 10 Ml Flush Syringe IV 10 ml PRN PRN Administration LINE FLUSH Nutrition/Malnutrition Assess - Dietary Evaluation Nutrition/Malnutrition Findings: Nutrition Notes Start: 03/30/22 12:49 Freq: Status: Active Protocol: Document 03/30/22 12:49 CORY (Rec: 03/30/22 12:58 CORY [id number]) Nutrition Notes Need for Assessment generated from: MD Order,Education Initial or Follow up Brief Note Current Diagnosis Diabetes Other Pertinent Diagnosis DKA, Chest Pain, Elevated Troponin, Metabolic Acidosis, Anxiety. Current Diet Consistent Carbohydrates Diet (since B 03/30), NPO (from 00:01). Height 5 ft 3 in Weight 86.183 kg [place] Body Weight (kg) 52.27 BMI 33.6 Weight change and time frame None provided at admission. Weight Status Obese Subjective/Other Information RD consult for nutrition education assessment. Pt currently on Consistent Carbohydrates Diet, but will be NPO after midnight, no reports available on Pt's PO intake of meals at the time, will assess at F/U. Pt is on Nasal Cannula, O2 saturation @ 98%, according to Vital Signs notes. Pt still in critical condition , not a candidate for Nutrition Education at the time, will assess feasibility on F/U. Percent of energy/protein needs met: Prescribed Consistent Carbohydrates Diet provides for energy/protein needs (2, 061 Kcal/91 g) during LOS. Nutrition Intervention Follow-Up By: 04/06/22 Additional Comments Nutrition education will be provided at F/U, if feasible. Continue monitoring food tolerance, %PO intake of meals , and BM.
[2022-04-01] MEDS: INSULIN LISPRO 100 UNIT/ML SUB-Q SCH ×2 (16:27→21:39)
[2022-04-01 16:54] LABS: INR 1.44 (0.87-1.13)
[2022-04-01 16:55] LABS: Partial Thromboplastin Time 32.3 Sec. (24.2-36.6)
[2022-04-01 17:11] LABS: Blood Urea Nitrogen 9 mg/dL (7-17); Hemolysis Index 55
[2022-04-01 17:12] LABS: BUN/Creatinine Ratio 15
--- NOTE | 2022-04-01 18:23 | Ultrasound Report ---
ULTRASOUND PELVIS INDICATION / CLINICAL INFORMATION: r/o malignancy. TECHNIQUE: Transabdominal. Duplex Color Doppler used: Yes. COMPARISON: None available FINDINGS: UTERUS: The uterus measures 11.9 cm in length. The endometrial stripe does not well visualized. Uteri ne fibroids are seen measuring up to 3.2 cm. RIGHT ADNEXA: Ovary could not be visualized. No discrete mass is seen. No free fluid is seen. LEFT ADNEXA: Ovary could not be visualized. No discrete mass is seen. No free fluid is seen. URINARY BLADDER: No significant abnormality. FREE FLUID: None. ADDITIONAL FINDINGS: None. IMPRESSION: 1. Uterine fibroids are noted. The ovaries could not be visualized. No adnexal masses are seen. Signer Name: Marc Mckeon MD Signed: 04/01/2022 6:18 PM Workstation Name: [id number]
[2022-04-02 04:49] LABS: Hematocrit 37.7 % (30.3-42.9); Hemoglobin 12.5 gm/dl (10.1-14.3); Mean Corpuscular HGB Conc 33 % (30-34); Mean Corpuscular Volume 95 fl (79-97); Red Blood Count 3.98 M/mm3 (3.65-5.03); Red Cell Distribution Width 12.5 % (13.2-15.2)
[2022-04-02 05:06] LABS: Blood Urea Nitrogen 9 mg/dL (7-17); Calcium 8.2 mg/dL (8.4-10.2); Hemolysis Index 7
[2022-04-02 05:08] LABS: Platelet Count 69 K/mm3 (140-440)
[2022-04-02 05:18] LABS: BUN/Creatinine Ratio 13
[2022-04-02] MEDS: MORPHINE 2 MG/1 ML INJ IV PRN ×2 (05:30→19:48)
[2022-04-02] MEDS: INSULIN LISPRO 100 UNIT/ML SUB-Q SCH ×4 (08:13→22:33)
[2022-04-02] MEDS: APIXABAN 5 MG TAB PO SCH ×2 (09:33→22:33)
[2022-04-02] MEDS: INSULIN GLARGINE 100 UNITS/ML SUB-Q SCH (09:33)
--- NOTE | 2022-04-02 10:14 | Progress Note ---
<CHUYCLIFF LanceRenu - Last Filed: 04/02/22 13:37> Assessment and Plan Assessment and plan: Assessment and Plan: This is a 46-year-old female with anxiety admitted with DKA, pulmonary embolism s/p EKOS Neuro: h/o anxiety -Reorientation as needed -Verbal de-escalation as needed -PRN ativan -Maintain sleep-wake cycle Cardio: Type II TX -Presented with chest pain -Cardiology consulted, appreciate recommendations -Blood pressure monitoring per protocol -Echo 03/30/2022: EF 50 to 55%. Septum is flattened in diastole consistent with RV volume overload. Right ventricular systolic function is normal. Mobile echo bright density present in right atrium. -PRn hydral Pulmonary: Submassive pulmonary embolism -CTA shows large submassive BL PE, RV strain visible. -CCM and vascular surgery consulted, appreciate recommendations -S/p EKOS on 03/31/2022 -PO eliquis -Pulmonary hygiene -Supplemental oxygen as needed -SPO2 monitoring GI: Morbid obesity -CC diet -24 hours -85 ml -PPI -BR: Colace -Encourage dietary and lifestyle modifications upon discharge -Will need outpatient EGD as she does endorse 1st degree family with colon CA : NAD -Monitor intake and output -Renally dose medications -Avoid nephrotoxic medications -Trend BMP Endocrine: s/p DKA, DM -Presented with anion gap of 19, blood glucose 574, ketonuria and VBG with a pH of 7.2 -Transition to SSI and long-acting insulin -Hemoglobin A1c 10.1 -CC diet -Avoid hypoglycemia ID: NAD -Monitor WBC and temperature curve Heme: Thrombocytopenia, unprovoked pulmonary embolism -Hematology/oncology consulted, appreciate recommendations -stopped Argatroban drip -HIT panel pending -Cardiolipin antibody screen, hemoglobinopathy evaluation, [place] 2 mutation pe nding -Trend CBC -Transfuse hemoglobin less than 7 -CT abd/pelvis with con pending -Pelvis US shows fibroids -recommend outpatient follow up with [employer] -Will need colonoscopy (possibly outpatient) as mother has colon cancer The high probability of a clinically significant, sudden or life threatening deterioration of the [multi] system(s) required my full and direct attention, intervention and personal management. The aggregate critical care time was [60] minutes. This time is in addition to time spent performing reported procedures but includes the following: [x] Data Review and interpretation [x] Patient assessment and monitoring of vital signs [x] Documentation [x] Medication orders and management Disposition Plan: transfer to floor Total Time Spent with Patient (Minutes): 60 History Interval history: This is a 46-year-old -[place]is[place] female with anxiety who presented to the emergency department on 03/29 with a 10 to 14-day history of weakness and shortness of breath with some nausea via EMS. Blood glucose Accu-Chek was very high above 500. Work-up in the emergency department revealed elevated blood glucose with increased anion gap and patient was admitted to the hospitalist service with new diagnosis of diabetes mellitus and for DKA to ICU for IV i nsulin drip and IV fluids with consult to cardiology and CCM. Hospital Course: 03/31: AG remains open: 21. Continue insulin gtt/IVF per dka protocol. K noted to be elevated, fluids modified to D5w/1/2NS. D/w Cardiology, right atrial mass visualized on TTE. Will need KRISTIE on sunday. NM stress canceled. Vascular surgery and heme-onc consulted. 04/01: S/p thrombectomy with EKOS catheter in place on heparin drip. To be started on argatroban drip per heme-onc. Patient remained insulin drip for this afternoon after removal of EKOS catheter she was transitioned to SSI, CC diet and long-acting insulin. Potassium repleted. Patient states she hasnt had a mammogram, colonoscopy, no personal history of cancer, no use of control. Patient states her mother does have colon cancer. 04/02: Patient remains off insulin gtt, hemodynamically stable and on RA. Changed to PO eliquis. Abd/pelvis imaging pending. Transfer to floor. ABD US completed which shows fibroids. Hospitalist Physical - Constitutional Vitals: Temp Pulse Resp BP Pulse Ox 97.8 F 94 H 16 108/74 98 04/02/22 07:46 04/02/22 08:31 04/02/22 08:31 04/02/22 09:31 04/02/22 09:31 General appearance: Present: no acute distress - EENT Eyes: Present: PERRL, EOM intact ENT: hearing intact, clear oral mucosa, dentition normal - Neck Neck: Present: normal ROM - Respiratory Respiratory effort: normal Respiratory: bilateral: CTA - Cardiovascular Rhythm: regular Heart Sounds: Present: S1 & S2. Absent: systolic murmur, diastolic murmur - Extremities Extremities: no ischemia, pulses intact, pulses symmetrical, No edema, normal temperature, normal color, Full ROM Peripheral Pulses: within normal limits - Abdominal General gastrointestinal: soft, non-tender, normal bowel sounds - Integumentary Integumentary: Present: warm, dry - Psychiatric Psychiatric: cooperative - Neurologic Neurologic: CNII-XII intact, no focal deficits, moves all extremities - Allied Health Allied health notes reviewed: nursing, social work HEART Score - HEART Score Troponin: Troponin T 0.033 ng/mL (0.00-0.029) H D 03/30/22 22:19 Results - Labs CBC & Chem 7: 04/02/22 04:15 04/02/22 04:15 Labs: Laboratory Last Values WBC 8.0 K/mm3 (4.5-11.0) 04/02/22 04:15 RBC 3.98 M/mm3 (3.65-5.03) 04/02/22 04:15 Hgb 12.5 gm/dl (10.1-14.3) 04/02/22 04:15 Hct 37.7 % (30.3-42.9) 04/02/22 04:15 MCV 95 fl (79-97) 04/02/22 04:15 MCH 32 pg (28-32) 04/02/22 04:15 MCHC 33 % (30-34) 04/02/22 04:15 RDW 12.5 % (13.2-15.2) L 04/02/22 04:15 Plt Count 69 K/mm3 (140-440) L 04/02/22 04:15 Lymph % (Auto) 23.7 % (13.4-35.0) 04/01/22 05:31 [place] % (Auto) 9.7 % (0.0-7.3) H 04/01/22 05:31 Eos % (Auto) 0.3 % (0.0-4.3) 04/01/22 05:31 Baso % (Auto) 0.3 % (0.0-1.8) 04/01/22 05:31 Lymph # (Auto) 2.5 K/mm3 (1.2-5.4) 04/01/22 05:31 [place] # (Auto) 1.0 K/mm3 (0.0-0.8) H 04/01/22 05:31 Eos # (Auto) 0.0 K/mm3 (0.0-0.4) 04/01/22 05:31 Baso # (Auto) 0.0 K/mm3 (0.0-0.1) 04/01/22 05:31 Seg Neutrophils % 66.0 % (40.0-70.0) 04/01/22 05:31 Seg Neutrophils # 6.9 K/mm3 (1.8-7.7) 04/01/22 05:31 PT 19.3 Sec. (12.2-14.9) H 04/01/22 16:04 INR 1.44 (0.87-1.13) H 04/01/22 16:04 APTT 32.3 Sec. (24.2-36.6) 04/01/22 16:04 Fibrinogen 330 mg/dl (211-480) 04/01/22 05:31 Heparin Anti-Xa Level 0.15 U.I./ml (0.3-0.7) L 04/01/22 05:31 VBG pH 7.213 (7.320-7.420) L 03/29/22 15:49 Sodium 139 mmol/L (137-145) 04/02/22 04:15 Potassium 3.6 mmol/L (3.6-5.0) 04/02/22 04:15 Chloride 105.7 mmol/L (98-107) 04/02/22 04:15 Carbon Dioxide 23 mmol/L (22-30) 04/02/22 04:15 Anion Gap 14 mmol/L 04/02/22 04:15 BUN 9 mg/dL (7-17) 04/02/22 04:15 Creatinine 0.7 mg/dL (0.6-1.2) 04/02/22 04:15 Estimated GFR > 60 ml/min 04/02/22 04:15 BUN/Creatinine Ratio 13 % 04/02/22 04:15 Glucose 111 mg/dL (65-100) H 04/02/22 04:15 POC Glucose 106 mg/dL (70-105) H 04/02/22 07:38 Hemoglobin A1c 10.1 % (4-6) H 03/30/22 12:05 Calcium 8.2 mg/dL (8.4-10.2) L 04/02/22 04:15 Phosphorus 4.00 mg/dL (2.5-4.5) 03/31/22 09:43 Magnesium 1.70 mg/dL (1.7-2.3) 04/02/22 04:15 Iron 40 ug/dL (37-170) 03/31/22 Unknown TIBC 368 mcg/dL (250-450) 03/31/22 Unknown Ferritin 453.4 ng/mL (10.0-200.0) H 03/31/22 Unknown Total Bilirubin 0.50 mg/dL (0.1-1.2) 03/29/22 15:49 AST 217 units/L (5-40) H 03/29/22 15:49 ALT 206 units/L (7-56) H 03/29/22 15:49 Alkaline Phosphatase 79 units/L (35-129) 03/29/22 15:49 Total Creatine Kinase 146 units/L (30-135) H 03/29/22 15:49 CK-MB (CK-2) 5.1 ng/mL (0.0-4.0) H 03/29/22 15:49 CK-MB (CK-2) Rel Index 3.4 (0-4) 03/29/22 15:49 Troponin T 0.033 ng/mL (0.00-0.029) H D 03/30/22 22:19 Total Protein 7.2 g/dL (6.3-8.2) 03/29/22 15:49 Albumin 4.2 g/dL (3.9-5) 03/29/22 15:49 Albumin/Globulin Ratio 1.4 % 03/29/22 15:49 Triglycerides 168 mg/dL (2-149) H 03/29/22 15:49 Cholesterol 190 mg/dL (50-199) 03/29/22 15:49 LDL Cholesterol Direct 127 mg/dL (50-130) 03/29/22 15:49 HDL Cholesterol 52 mg/dL (40-59) 03/29/22 15:49 Cholesterol/HDL Ratio 3.65 % 03/29/22 15:49 TSH 1.120 mlU/mL (0.270-4.200) 03/29/22 15:49 Free T4 1.42 ng/dL (0.76-1.46) 03/29/22 15:49 HCG, Qual Negative (Negative) 03/29/22 15:49 Urine Color Yellow (Yellow) 03/30/22 06:43 Urine Turbidity Slightly-cloudy (Clear) 03/30/22 06:43 Urine pH 5.0 (5.0-7.0) 03/30/22 06:43 Ur Specific [place] 1.020 (1.003-1.030) 03/30/22 06:43 Urine Protein 100 mg/dl mg/dL (Negative) 03/30/22 06:43 Urine Glucose (UA) >=500 mg/dL (Negative) 03/30/22 06:43 Urine Ketones 20 mg/dL (Negative) 03/30/22 06:43 Urine Blood Mod (Negative) 03/30/22 06:43 Urine Nitrite Neg (Negative) 03/30/22 06:43 Urine Bilirubin Neg (Negative) 03/30/22 06:43 Urine Urobilinogen 2.0 mg/dL (<2.0) 03/30/22 06:43 Ur Leukocyte Esterase Neg (Negative) 03/30/22 06:43 Urine WBC (Auto) 4.0 /HPF (0.0-6.0) 03/30/22 06:43 Urine RBC (Auto) 9.0 /HPF (0.0-6.0) 03/30/22 06:43 U Epithel Cells (Auto) 9.0 /HPF (0-13.0) 03/30/22 06:43 Urine Bacteria (Auto) 1+ /HPF (Negative) 03/30/22 06:43 Hyaline Casts 54 /LPF 03/30/22 06:43 Urine Mucus Few /HPF 03/30/22 06:43 Urine Opiates Screen Negative 03/30/22 06:43 Urine Methadone Screen Negative 03/30/22 06:43 Ur Barbiturates Screen Negative 03/30/22 06:43 Ur Phencyclidine Scrn Negative 03/30/22 06:43 Ur Amphetamines Screen Negative 03/30/22 06:43 U Benzodiazepines Scrn Negative 03/30/22 06:43 Urine Cocaine Screen Negative 03/30/22 06:43 U Marijuana (THC) Screen Negative 03/30/22 06:43 Drugs of Abuse Note Disclamer 03/30/22 06:43 Mcclain/IV: Voiding Method Toilet Active Medications - Current Medications Current Medications: Generic Name Dose Route Start Last Admin Trade Name Freq PRN Reason Stop Dose Admin Acetaminophen 650 mg 03/31/22 15:04 04/01/22 21:40 Acetaminophen 325 Mg Tab PO 650 mg Q6H PRN Administration Pain, Mild (1-3) Alprazolam 0.25 mg 03/30/22 13:00 03/31/22 22:02 Alprazolam 0.25 Mg Tab PO 0.25 mg Q8H PRN Administration Anxiety Apixaban 10 mg 04/01/22 14:30 04/02/22 09:33 Apixaban 5 Mg Tab PO 04/07/22 22:01 10 mg Q12HR J LUIS Administration Protocol Apixaban 5 mg 04/08/22 10:00 Apixaban 5 Mg Tab PO 10/05/22 09:59 Q12HR J LUIS Protocol Dextrose 50 ml 04/01/22 14:02 Dextrose 50% In Water (25gm) 50 Ml Syringe IV Q30MIN PRN Hypoglycemia Protocol Potassium Chloride 10 meq in 100 mls @ 100 mls/hr 03/31/22 09:28 Kcl 10meq/100ml IV Q1H PRN LOW Potassium Levels Potassium Chloride 10 meq in 100 mls @ 100 mls/hr 03/31/22 09:28 Kcl 10meq/100ml IV Q1H PRN LOW Potassium Levels Ibuprofen 600 mg 03/29/22 17:42 Ibuprofen 600 Mg Tab PO Q6H PRN Pain, Mild (1-3) Insulin Glargine 10 units 04/01/22 14:30 04/02/22 09:33 Insulin Glargine 100 Units/Ml SUB-Q 10 units QAMDIAB J LUIS Administration Insulin Human Lispro 0 unit 04/01/22 16:30 04/02/22 08:13 Insulin Lispro 100 Unit/Ml SUB-Q Not Given ACHS [facility] Protocol Morphine Sulfate 2 mg 03/29/22 17:42 04/02/22 05:30 Morphine 2 Mg/1 Ml Inj IV 2 mg Q4H PRN Administration Pain, Moderate (4-6) Ondansetron HCl 4 mg 03/31/22 14:18 03/31/22 14:25 Ondansetron 4 Mg/2 Ml Inj IV 4 mg Q8H PRN Administration Nausea And Vomiting Sodium Chloride 10 ml 03/29/22 22:00 04/02/22 09:34 Sodium Chloride 0.9% 10 Ml Flush Syringe IV 10 ml BID J ULIS Administration Sodium Chloride 10 ml 03/29/22 17:42 04/01/22 02:32 Sodium Chloride 0.9% 10 Ml Flush Syringe IV 10 ml PRN PRN Administration LINE FLUSH Nutrition/Malnutrition Assess - Dietary Evaluation Nutrition/Malnutrition Findings: Nutrition Notes Start: 03/30/22 12:49 Freq: Status: Active Protocol: Document 03/30/22 12:49 CORY (Rec: 03/30/22 12:58 CORY [id number]) Nutrition Notes Need for Assessment generated from: MD Order,Education Initial or Follow up Brief Note Current Diagnosis Diabetes Other Pertinent Diagnosis DKA, Chest Pain, Elevated Troponin, Metabolic Acidosis, Anxiety. Current Diet Consistent Carbohydrates Diet (since B 03/30), NPO (from 00:01). Height 5 ft 3 in Weight 86.183 kg [place] Body Weight (kg) 52.27 BMI 33.6 Weight change and time frame None provided at admission. Weight Status Obese Subjective/Other Information RD consult for nutrition education assessment. Pt currently on Consistent Carbohydrates Diet, but will be NPO after midnight, no reports available on Pt's PO intake of meals at the time, will assess at F/U. Pt is on Nasal Cannula, O2 saturation @ 98%, according to Vital Signs notes. Pt still in critical condition , not a candidate for Nutrition Education at the time, will assess feasibility on F/U. Percent of energy/protein needs met: Prescribed Consistent Carbohydrates Diet provides for energy/protein needs (2, 061 Kcal/91 g) during LOS. Nutrition Intervention Follow-Up By: 04/06/22 Additional Comments Nutrition education will be provided at F/U, if feasible. Continue monitoring food tolerance, %PO intake of meals , and BM. <KAREN CARRANZA - Last Filed: 04/04/22 13:03> History Interval history: I saw and evaluated the patient. Discussed with the nurse practitioner and agree with their findings and plan as documented in this note. Hospitalist Physical - Constitutional Vitals: Temp Pulse Resp BP Pulse Ox 98.8 F 76 22 166/119 95 04/04/22 04:42 04/04/22 09:38 04/03/22 22:51 04/04/22 09:38 04/04/22 04:42 HEART Score - HEART Score Troponin: Troponin T 0.033 ng/mL (0.00-0.029) H D 03/30/22 22:19 Results - Labs CBC & Chem 7: 04/04/22 06:32 04/02/22 04:15 Labs: Laboratory Last Values WBC 6.4 K/mm3 (4.5-11.0) 04/04/22 06:32 RBC 4.32 M/mm3 (3.65-5.03) 04/04/22 06:32 Hgb 13.7 gm/dl (10.1-14.3) 04/04/22 06:32 Hct 40.2 % (30.3-42.9) 04/04/22 06:32 MCV 93 fl (79-97) 04/04/22 06:32 MCH 32 pg (28-32) 04/04/22 06:32 MCHC 34 % (30-34) 04/04/22 06:32 RDW 12.5 % (13.2-15.2) L 04/04/22 06:32 Plt Count 110 K/mm3 (140-440) L 04/04/22 06:32 Lymph % (Auto) 23.7 % (13.4-35.0) 04/01/22 05:31 [place] % (Auto) 9.7 % (0.0-7.3) H 04/01/22 05:31 Eos % (Auto) 0.3 % (0.0-4.3) 04/01/22 05:31 Baso % (Auto) 0.3 % (0.0-1.8) 04/01/22 05:31 Lymph # (Auto) 2.5 K/mm3 (1.2-5.4) 04/01/22 05:31 [place] # (Auto) 1.0 K/mm3 (0.0-0.8) H 04/01/22 05:31 Eos # (Auto) 0.0 K/mm3 (0.0-0.4) 04/01/22 05:31 Baso # (Auto) 0.0 K/mm3 (0.0-0.1) 04/01/22 05:31 Seg Neutrophils % 66.0 % (40.0-70.0) 04/01/22 05:31 Seg Neutrophils # 6.9 K/mm3 (1.8-7.7) 04/01/22 05:31 PT 19.3 Sec. (12.2-14.9) H 04/01/22 16:04 INR 1.44 (0.87-1.13) H 04/01/22 16:04 APTT 32.3 Sec. (24.2-36.6) 04/01/22 16:04 Fibrinogen 330 mg/dl (211-480) 04/01/22 05:31 Heparin Anti-Xa Level 0.15 U.I./ml (0.3-0.7) L 04/01/22 05:31 VBG pH 7.213 (7.320-7.420) L 03/29/22 15:49 Sodium 139 mmol/L (137-145) 04/02/22 04:15 Potassium 3.6 mmol/L (3.6-5.0) 04/02/22 04:15 Chloride 105.7 mmol/L (98-107) 04/02/22 04:15 Carbon Dioxide 23 mmol/L (22-30) 04/02/22 04:15 Anion Gap 14 mmol/L 04/02/22 04:15 BUN 9 mg/dL (7-17) 04/02/22 04:15 Creatinine 0.7 mg/dL (0.6-1.2) 04/02/22 04:15 Estimated GFR > 60 ml/min 04/02/22 04:15 BUN/Creatinine Ratio 13 % 04/02/22 04:15 Glucose 111 mg/dL (65-100) H 04/02/22 04:15 POC Glucose 227 mg/dL (70-105) H 04/04/22 11:12 Hemoglobin A1c 10.1 % (4-6) H 03/30/22 12:05 Calcium 8.2 mg/dL (8.4-10.2) L 04/02/22 04:15 Phosphorus 4.00 mg/dL (2.5-4.5) 03/31/22 09:43 Magnesium 1.70 mg/dL (1.7-2.3) 04/02/22 04:15 Iron 40 ug/dL (37-170) 03/31/22 Unknown TIBC 368 mcg/dL (250-450) 03/31/22 Unknown Ferritin 453.4 ng/mL (10.0-200.0) H 03/31/22 Unknown Total Bilirubin 0.50 mg/dL (0.1-1.2) 03/29/22 15:49 AST 217 units/L (5-40) H 03/29/22 15:49 ALT 206 units/L (7-56) H 03/29/22 15:49 Alkaline Phosphatase 79 units/L (35-129) 03/29/22 15:49 Total Creatine Kinase 146 units/L (30-135) H 03/29/22 15:49 CK-MB (CK-2) 5.1 ng/mL (0.0-4.0) H 03/29/22 15:49 CK-MB (CK-2) Rel Index 3.4 (0-4) 03/29/22 15:49 Troponin T 0.033 ng/mL (0.00-0.029) H D 03/30/22 22:19 Total Protein 7.2 g/dL (6.3-8.2) 03/29/22 15:49 Albumin 4.2 g/dL (3.9-5) 03/29/22 15:49 Albumin/Globulin Ratio 1.4 % 03/29/22 15:49 Triglycerides 168 mg/dL (2-149) H 03/29/22 15:49 Cholesterol 190 mg/dL (50-199) 03/29/22 15:49 LDL Cholesterol Direct 127 mg/dL (50-130) 03/29/22 15:49 HDL Cholesterol 52 mg/dL (40-59) 03/29/22 15:49 Cholesterol/HDL Ratio 3.65 % 03/29/22 15:49 TSH 1.120 mlU/mL (0.270-4.200) 03/29/22 15:49 Free T4 1.42 ng/dL (0.76-1.46) 03/29/22 15:49 HCG, Qual Negative (Negative) 03/29/22 15:49 Urine Color Yellow (Yellow) 03/30/22 06:43 Urine Turbidity Slightly-cloudy (Clear) 03/30/22 06:43 Urine pH 5.0 (5.0-7.0) 03/30/22 06:43 Ur Specific [place] 1.020 (1.003-1.030) 03/30/22 06:43 Urine Protein 100 mg/dl mg/dL (Negative) 03/30/22 06:43 Urine Glucose (UA) >=500 mg/dL (Negative) 03/30/22 06:43 Urine Ketones 20 mg/dL (Negative) 03/30/22 06:43 Urine Blood Mod (Negative) 03/30/22 06:43 Urine Nitrite Neg (Negative) 03/30/22 06:43 Urine Bilirubin Neg (Negative) 03/30/22 06:43 Urine Urobilinogen 2.0 mg/dL (<2.0) 03/30/22 06:43 Ur Leukocyte Esterase Neg (Negative) 03/30/22 06:43 Urine WBC (Auto) 4.0 /HPF (0.0-6.0) 03/30/22 06:43 Urine RBC (Auto) 9.0 /HPF (0.0-6.0) 03/30/22 06:43 U Epithel Cells (Auto) 9.0 /HPF (0-13.0) 03/30/22 06:43 Urine Bacteria (Auto) 1+ /HPF (Negative) 03/30/22 06:43 Hyaline Casts 54 /LPF 03/30/22 06:43 Urine Mucus Few /HPF 03/30/22 06:43 Urine Opiates Screen Negative 03/30/22 06:43 Urine Methadone Screen Negative 03/30/22 06:43 Ur Barbiturates Screen Negative 03/30/22 06:43 Ur Phencyclidine Scrn Negative 03/30/22 06:43 Ur Amphetamines Screen Negative 03/30/22 06:43 U Benzodiazepines Scrn Negative 03/30/22 06:43 Urine Cocaine Screen Negative 03/30/22 06:43 U Marijuana (THC) Screen Negative 03/30/22 06:43 Drugs of Abuse Note Disclamer 03/30/22 06:43 Mcclain/IV: Voiding Method Toilet Active Medications - Current Medications Current Medications: Generic Name Dose Route Start Last Admin Trade Name Freq PRN Reason Stop Dose Admin Acetaminophen 650 mg 03/31/22 15:04 04/01/22 21:40 Acetaminophen 325 Mg Tab PO 650 mg Q6H PRN Administration Pain, Mild (1-3) Alprazolam 0.25 mg 03/30/22 13:00 04/04/22 09:01 Alprazolam 0.25 Mg Tab PO 0.25 mg Q8H PRN Administration Anxiety Apixaban 10 mg 04/01/22 14:30 04/04/22 09:02 Apixaban 5 Mg Tab PO 04/07/22 22:01 10 mg Q12HR J LUIS Administration Protocol Apixaban 5 mg 04/08/22 10:00 Apixaban 5 Mg Tab PO 10/05/22 09:59 Q12HR J LUIS Protocol Dextrose 50 ml 04/01/22 14:02 Dextrose 50% In Water (25gm) 50 Ml Syringe IV Q30MIN PRN Hypoglycemia Protocol Hydralazine HCl 10 mg 04/02/22 13:54 04/03/22 09:57 Hydralazine 20 Mg/1 Ml Inj IV 10 mg Q4HR PRN Administration Blood Pressure Potassium Chloride 10 meq in 100 mls @ 100 mls/hr 03/31/22 09:28 Kcl 10meq/100ml IV Q1H PRN LOW Potassium Levels Potassium Chloride 10 meq in 100 mls @ 100 mls/hr 03/31/22 09:28 Kcl 10meq/100ml IV Q1H PRN LOW Potassium Levels Insulin Glargine 10 units 04/01/22 14:30 04/04/22 12:17 Insulin Glargine 100 Units/Ml SUB-Q 10 units QAMDIAB J LUIS Administration Insulin Human Lispro 0 unit 04/01/22 16:30 04/04/22 09:10 Insulin Lispro 100 Unit/Ml SUB-Q Not Given ACHS [facility] Protocol Lisinopril 20 mg 04/03/22 16:00 04/03/22 16:59 Lisinopril 20 Mg Tab PO 20 mg QDAY J LUIS Administration Morphine Sulfate 2 mg 03/29/22 17:42 04/03/22 20:13 Morphine 2 Mg/1 Ml Inj IV 2 mg Q4H PRN Administration Pain, Moderate (4-6) Ondansetron HCl 4 mg 03/31/22 14:18 03/31/22 14:25 Ondansetron 4 Mg/2 Ml Inj IV 4 mg Q8H PRN Administration Nausea And Vomiting Sodium Chloride 10 ml 03/29/22 22:00 04/04/22 12:18 Sodium Chloride 0.9% 10 Ml Flush Syringe IV 10 ml BID J LUIS Administration Sodium Chloride 10 ml 03/29/22 17:42 04/01/22 02:32 Sodium Chloride 0.9% 10 Ml Flush Syringe IV 10 ml PRN PRN Administration LINE FLUSH Nutrition/Malnutrition Assess - Dietary Evaluation Nutrition/Malnutrition Findings: Nutrition Notes Start: 03/30/22 12:49 Freq: Status: Active Protocol: Document 03/30/22 12:49 CORY (Rec: 03/30/22 12:58 CORY [id number]) Nutrition Notes Need for Assessment generated from: MD Order,Education Initial or Follow up Brief Note Current Diagnosis Diabetes Other Pertinent Diagnosis DKA, Chest Pain, Elevated Troponin, Metabolic Acidosis, Anxiety. Current Diet Consistent Carbohydrates Diet (since B 03/30), NPO (from 00:01). Height 5 ft 3 in Weight 86.183 kg [place] Body Weight (kg) 52.27 BMI 33.6 Weight change and time frame None provided at admission. Weight Status Obese Subjective/Other Information RD consult for nutrition education assessment. Pt currently on Consistent Carbohydrates Diet, but will be NPO after midnight, no reports available on Pt's PO intake of meals at the time, will assess at F/U. Pt is on Nasal Cannula, O2 saturation @ 98%, according to Vital Signs notes. Pt still in critical condition , not a candidate for Nutrition Education at the time, will assess feasibility on F/U. Percent of energy/protein needs met: Prescribed Consistent Carbohydrates Diet provides for energy/protein needs (2, 061 Kcal/91 g) during LOS. Nutrition Intervention Follow-Up By: 04/06/22 Additional Comments Nutrition education will be provided at F/U, if feasible. Continue monitoring food tolerance, %PO intake of meals , and BM.
--- NOTE | 2022-04-02 11:35 | Progress Note ---
Assessment and Plan Assessment: Bilateral PE ?RA Thrombus DKA / Newly Diagnosed DM Electrolyte Abnormalities Thrombocytopenia Type 2 LA Obesity Echo 03/30/2022: EF 50 to 55%. Mild diastolic dysfunction is present, impaired relaxation pattern. Right ventricle is mildly dilated. Septum is flattened in diastole consistent with RV volume overload. Right ventricular systolic function is normal. Mobile echo bright density present in right atrium. No aortic regurgitation. No mitral valve regurgitation. Trace tricuspid regurgitation. Trace pulmonic regurgitation. Plan: S/p EKOS 03/31/2022. Vasc Surg following. Transitioned to Eliquis today. Heme/Onc following as well. Plan to repeat TTE in AM. Pt seen in conjunction with Dr. Gutiérrez, who agrees with the assessment and plan of care. - Patient Problems (1) Pulmonary emboli Current Visit: Yes Status: Acute (2) Thrombocytopenia Current Visit: Yes Status: Acute (3) DKA (diabetic ketoacidosis) Current Visit: Yes Status: Acute (4) Type 2 myocardial infarction Current Visit: Yes Status: Acute Subjective Date of service: 04/02/22 Principal diagnosis: Bilateral PE Interval history: Resting comfortably in bed with no complaints. SR 90s on tele, no events. Objective Vital Signs Temp Pulse Pulse Resp BP Pulse Ox 04/02/22 11:21 97 H 25 H 125/87 98 04/02/22 11:11 104 H 26 H 125/87 98 04/02/22 11:09 95 H 19 125/87 97 04/02/22 10:21 86 21 125/87 92 04/02/22 10:11 90 26 H 125/87 96 04/02/22 10:00 88 21 125/87 95 04/02/22 09:51 89 25 H 108/74 98 04/02/22 09:41 92 H 14 108/74 97 04/02/22 09:31 108/74 98 04/02/22 09:21 108/74 96 04/02/22 09:11 108/74 94 04/02/22 09:00 108/74 94 04/02/22 08:51 138/88 95 04/02/22 08:41 138/88 97 04/02/22 08:31 94 H 16 138/88 96 04/02/22 08:21 94 H 26 H 138/88 95 04/02/22 08:11 95 H 22 138/88 97 04/02/22 08:00 101 H 86 30 H 137/90 78 L 04/02/22 07:51 103 H 19 138/88 04/02/22 07:46 97.8 F 04/02/22 07:41 98 H 18 138/88 98 04/02/22 07:31 96 H 19 138/88 04/02/22 07:21 85 21 138/88 96 04/02/22 07:11 85 20 138/88 96 04/02/22 07:01 86 24 138/88 04/02/22 06:51 91 H 14 136/100 99 04/02/22 06:41 87 20 136/100 97 04/02/22 06:31 85 20 136/100 97 04/02/22 06:21 80 19 136/100 96 04/02/22 06:11 85 25 H 136/100 95 04/02/22 06:01 88 25 H 136/100 95 04/02/22 05:51 87 23 145/107 94 04/02/22 05:41 86 14 145/107 95 04/02/22 05:31 89 24 145/107 97 04/02/22 05:30 25 H 04/02/22 05:21 88 10 L 145/107 97 04/02/22 05:11 90 27 H 145/107 95 04/02/22 05:01 90 18 145/107 93 04/02/22 04:51 87 19 109/81 95 04/02/22 04:41 89 20 109/81 96 04/02/22 04:31 87 22 109/81 97 04/02/22 04:21 87 17 109/81 95 04/02/22 04:11 89 22 109/81 94 04/02/22 04:00 99.5 F 87 87 22 109/81 87 04/02/22 03:51 88 26 H 115/82 96 04/02/22 03:41 89 21 115/82 96 04/02/22 03:31 90 22 130/86 93 04/02/22 03:21 88 25 H 130/86 95 04/02/22 03:11 88 22 130/86 96 04/02/22 03:01 95 H 29 H 130/86 92 04/02/22 02:51 88 22 115/82 97 04/02/22 02:41 90 27 H 115/82 98 04/02/22 02:31 92 H 30 H 115/82 97 04/02/22 02:21 100 H 19 115/82 04/02/22 02:11 108 H 33 H 115/82 04/02/22 02:00 91 H 16 115/82 93 04/02/22 01:51 91 H 17 117/79 96 04/02/22 01:41 91 H 20 117/79 96 04/02/22 01:31 88 21 117/79 95 04/02/22 01:21 89 20 117/79 94 04/02/22 01:11 91 H 17 117/79 95 04/02/22 01:00 93 H 19 117/79 96 04/02/22 00:51 91 H 19 113/78 97 04/02/22 00:41 92 H 22 113/78 95 04/02/22 00:31 90 18 113/78 96 04/02/22 00:21 91 H 21 113/78 97 04/02/22 00:11 90 22 113/78 97 04/02/22 00:00 99.5 F 92 H 92 H 22 113/78 98 04/01/22 23:51 95 H 23 125/82 99 04/01/22 23:49 94 H 21 125/82 100 04/01/22 23:41 93 H 21 125/82 96 04/01/22 23:31 95 H 23 125/82 100 04/01/22 23:21 95 H 23 125/82 97 04/01/22 23:11 96 H 22 125/82 100 04/01/22 23:01 101 H 26 H 125/82 100 04/01/22 22:51 99 H 23 110/51 98 04/01/22 22:41 97 H 16 110/51 100 04/01/22 22:31 96 H 23 110/51 99 04/01/22 22:21 97 H 23 110/51 99 04/01/22 22:11 97 H 24 110/51 98 04/01/22 22:01 100 H 26 H 110/51 97 04/01/22 21:51 103 H 30 H 140/104 97 04/01/22 21:41 104 H 22 140/104 92 04/01/22 21:31 102 H 15 140/104 94 04/01/22 21:21 104 H 12 140/104 93 04/01/22 21:11 106 H 22 140/104 94 04/01/22 21:01 107 H 26 H 140/104 86 04/01/22 20:51 102 H 33 H 117/90 96 04/01/22 20:41 103 H 36 H 117/90 96 04/01/22 20:31 102 H 28 H 117/90 04/01/22 20:20 106 H 33 H 117/90 96 04/01/22 20:13 115 H 117/83 04/01/22 20:00 100.8 F H 100 H 105 H 31 H 117/83 96 04/01/22 19:51 98 H 23 107/78 95 04/01/22 19:41 99 H 23 107/78 94 04/01/22 19:31 99 H 23 107/78 94 04/01/22 19:21 99 H 24 107/78 94 04/01/22 19:11 98 H 23 107/78 89 04/01/22 19:00 102 H 25 H 107/78 95 04/01/22 18:51 102 H 24 114/73 94 04/01/22 18:41 102 H 23 114/73 93 04/01/22 18:31 101 H 24 114/73 92 04/01/22 18:21 103 H 24 114/73 92 04/01/22 18:11 104 H 24 109/77 94 04/01/22 18:00 104 H 24 109/77 94 04/01/22 17:51 104 H 22 114/73 92 04/01/22 17:41 104 H 29 H 128/82 94 04/01/22 17:31 101 H 28 H 128/82 92 04/01/22 17:21 102 H 27 H 128/82 88 04/01/22 17:11 104 H 22 128/82 91 04/01/22 17:01 108 H 26 H 128/82 95 04/01/22 16:51 105 H 24 128/82 95 04/01/22 16:41 106 H 28 H 128/82 94 04/01/22 16:31 106 H 19 128/82 95 04/01/22 16:21 105 H 29 H 128/82 97 04/01/22 16:11 103 H 28 H 115/82 100 04/01/22 16:00 98.8 F 102 H 102 H 25 H 115/82 97 04/01/22 15:51 102 H 28 H 128/82 96 04/01/22 15:41 102 H 20 128/82 98 04/01/22 15:31 103 H 24 128/82 94 04/01/22 15:21 105 H 28 H 128/82 95 04/01/22 15:11 108 H 27 H 128/82 82 L 04/01/22 15:01 105 H 25 H 128/82 96 04/01/22 14:51 103 H 27 H 119/76 96 04/01/22 14:41 100 H 27 H 119/76 95 04/01/22 14:31 98 H 30 H 119/76 98 04/01/22 14:21 99 H 32 H 119/76 96 04/01/22 14:11 100 H 32 H 119/76 93 04/01/22 14:00 100 H 36 H 119/76 98 04/01/22 13:51 101 H 35 H 113/86 93 04/01/22 13:40 101 H 37 H 113/86 97 04/01/22 13:31 104 H 37 H 112/93 97 04/01/22 13:21 104 H 22 112/93 96 04/01/22 13:11 104 H 18 112/93 99 04/01/22 13:00 103 H 31 H 112/93 98 04/01/22 12:51 102 H 29 H 124/90 94 04/01/22 12:41 103 H 36 H 124/90 95 04/01/22 12:31 105 H 26 H 94 04/01/22 12:20 104 H 32 H 124/90 93 04/01/22 12:10 108 H 32 H 124/90 96 04/01/22 12:00 97.9 F 110 H 110 H 24 100/77 91 04/01/22 11:50 106 H 21 100/77 97 04/01/22 11:40 106 H 18 100/77 92 - Physical Examination General: No Apparent Distress HEENT: Positive: EOMI, Normocephaly Neck: Positive: neck supple, trachea midline Cardiac: Positive: Reg Rate and Rhythm, S1/S2 Lungs: Positive: clear to auscultation Neuro: Positive: Grossly Intact Abdomen: Positive: Soft. Negative: Tender Skin: Negative: Rash Musculoskeletal: No Pain Extremities: Present: upper extr. pulses, warm. Absent: edema - Labs and Meds Coagulation 04/01/22 Range/Units 16:04 PT 19.3 H (12.2-14.9) Sec. INR 1.44 H (0.87-1.13) APTT 32.3 (24.2-36.6) Sec. CBC 04/02/22 Range/Units 04:15 WBC 8.0 (4.5-11.0) K/mm3 RBC 3.98 (3.65-5.03) M/mm3 Hgb 12.5 (10.1-14.3) gm/dl Hct 37.7 (30.3-42.9) % Plt Count 69 L (140-440) K/mm3 Comprehensive Metabolic Panel 04/01/22 04/02/22 Range/Units 16:04 04:15 Sodium 135 L 139 (137-145) mmol/L Potassium 3.9 D 3.6 (3.6-5.0) mmol/L Chloride 102.8 105.7 (98-107) mmol/L Carbon Dioxide 20 L 23 (22-30) mmol/L BUN 9 9 (7-17) mg/dL Creatinine 0.6 0.7 (0.6-1.2) mg/dL Glucose 198 H 111 H (65-100) mg/dL Calcium 8.0 L 8.2 L (8.4-10.2) mg/dL - Imaging and Cardiology EKG: report reviewed, image reviewed Echo: report reviewed - Telemetry EKG Rhythm: Sinus Rhythm - EKG Sinus rhythms and dysrhythmias: sinus tachycardia Repolarization changes or abnormalities: nonspecific abnormality, ST segment, and/or T wave Myocardial infarction: inferior LA (old age inde - Allied health notes Allied health notes reviewed: nursing
--- NOTE | 2022-04-02 12:23 | Progress Note ---
Assessment and Plan 03/31/22: Continue insulin drip until gap closes. 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 Likely hold on KRISTIE. Anticoagulation, [employer] to discuss with Heme if Argatroban is what is wanted post EKOS removal given low platelets. Can likely transition to long acting insulin once able to eat. FSBS ac and qhs. SSI. Will need age appropriate screening for malignancy as well as hypercoagulable work up as out patient if malignancy is not found. 04/02/22: follow up CT of abdomen pelvis results. Anticoagulation per heme, stable for transfer to floor. NPO Continue insulin drip Needs repeat labs to assess anion Gap IVF's Subjective Date of service: 04/02/22 Principal diagnosis: Bilateral PE Interval history: No acute events. Better. Objective Vital Signs - 12hr 04/02/22 04/02/22 04/02/22 00:31 00:41 00:51 Temperature Pulse Rate 90 92 H 91 H Pulse Rate [ From Monitor] Respiratory 18 22 19 Rate Blood Pressure 113/78 113/78 113/78 O2 Sat by Pulse 96 95 97 Oximetry 04/02/22 04/02/22 04/02/22 01:00 01:11 01:21 Temperature Pulse Rate 93 H 91 H 89 Pulse Rate [ From Monitor] Respiratory 19 17 20 Rate Blood Pressure 117/79 117/79 117/79 O2 Sat by Pulse 96 95 94 Oximetry 04/02/22 04/02/22 04/02/22 01:31 01:41 01:51 Temperature Pulse Rate 88 91 H 91 H Pulse Rate [ From Monitor] Respiratory 21 20 17 Rate Blood Pressure 117/79 117/79 117/79 O2 Sat by Pulse 95 96 96 Oximetry 04/02/22 04/02/22 04/02/22 02:00 02:11 02:21 Temperature Pulse Rate 91 H 108 H 100 H Pulse Rate [ From Monitor] Respiratory 16 33 H 19 Rate Blood Pressure 115/82 115/82 115/82 O2 Sat by Pulse 93 Oximetry 04/02/22 04/02/22 04/02/22 02:31 02:41 02:51 Temperature Pulse Rate 92 H 90 88 Pulse Rate [ From Monitor] Respiratory 30 H 27 H 22 Rate Blood Pressure 115/82 115/82 115/82 O2 Sat by Pulse 97 98 97 Oximetry 04/02/22 04/02/22 04/02/22 03:01 03:11 03:21 Temperature Pulse Rate 95 H 88 88 Pulse Rate [ From Monitor] Respiratory 29 H 22 25 H Rate Blood Pressure 130/86 130/86 130/86 O2 Sat by Pulse 92 96 95 Oximetry 04/02/22 04/02/22 04/02/22 03:31 03:41 03:51 Temperature Pulse Rate 90 89 88 Pulse Rate [ From Monitor] Respiratory 22 21 26 H Rate Blood Pressure 130/86 115/82 115/82 O2 Sat by Pulse 93 96 96 Oximetry 04/02/22 04/02/22 04/02/22 04:00 04:11 04:21 Temperature 99.5 F Pulse Rate 87 89 87 Pulse Rate [ 87 From Monitor] Respiratory 17 Rate Blood Pressure 109/81 109/81 109/81 O2 Sat by Pulse 87 94 95 Oximetry 04/02/22 04/02/22 04/02/22 04:31 04:41 04:51 Temperature Pulse Rate 87 89 87 Pulse Rate [ From Monitor] Respiratory 22 20 19 Rate Blood Pressure 109/81 109/81 109/81 O2 Sat by Pulse 97 96 95 Oximetry 04/02/22 04/02/22 04/02/22 05:01 05:11 05:21 Temperature Pulse Rate 90 90 88 Pulse Rate [ From Monitor] Respiratory 18 27 H 10 L Rate Blood Pressure 145/107 145/107 145/107 O2 Sat by Pulse 93 95 97 Oximetry 04/02/22 04/02/22 04/02/22 05:30 05:31 05:41 Temperature Pulse Rate 89 86 Pulse Rate [ From Monitor] Respiratory 25 H 24 14 Rate Blood Pressure 145/107 145/107 O2 Sat by Pulse 97 95 Oximetry 04/02/22 04/02/22 04/02/22 05:51 06:01 06:11 Temperature Pulse Rate 87 88 85 Pulse Rate [ From Monitor] Respiratory 23 25 H 25 H Rate Blood Pressure 145/107 136/100 136/100 O2 Sat by Pulse 94 95 95 Oximetry 04/02/22 04/02/22 04/02/22 06:21 06:31 06:41 Temperature Pulse Rate 80 85 87 Pulse Rate [ From Monitor] Respiratory 19 20 20 Rate Blood Pressure 136/100 136/100 136/100 O2 Sat by Pulse 96 97 97 Oximetry 04/02/22 04/02/2204/02/22 06:51 07:01 07:11 Temperature Pulse Rate 91 H 86 85 Pulse Rate [ From Monitor] Respiratory 14 24 20 Rate Blood Pressure 136/100 138/88 138/88 O2 Sat by Pulse 99 96 Oximetry 04/02/22 04/02/22 04/02/22 07:21 07:31 07:41 Temperature Pulse Rate 85 96 H 98 H Pulse Rate [ From Monitor] Respiratory 21 19 18 Rate Blood Pressure 138/88 138/88 138/88 O2 Sat by Pulse 96 98 Oximetry 04/02/22 04/02/22 04/02/22 07:46 07:51 08:00 Temperature 97.8 F Pulse Rate 103 H 101 H Pulse Rate [ 86 From Monitor] Respiratory 19 30 H Rate Blood Pressure 138/88 137/90 O2 Sat by Pulse 78 L Oximetry 04/02/22 04/02/22 04/02/22 08:11 08:21 08:31 Temperature Pulse Rate 95 H 94 H 94 H Pulse Rate [ From Monitor] Respiratory 22 26 H 16 Rate Blood Pressure 138/88 138/88 138/88 O2 Sat by Pulse 97 95 96 Oximetry 04/02/22 04/02/22 04/02/22 08:41 08:51 09:00 Temperature Pulse Rate Pulse Rate [ From Monitor] Respiratory Rate Blood Pressure 138/88 138/88 108/74 O2 Sat by Pulse 97 95 94 Oximetry 04/02/22 04/02/22 04/02/22 09:11 09:21 09:31 Temperature Pulse Rate Pulse Rate [ From Monitor] Respiratory Rate Blood Pressure 108/74 108/74 108/74 O2 Sat by Pulse 94 96 98 Oximetry 04/02/22 04/02/22 04/02/22 09:41 09:51 10:00 Temperature Pulse Rate 92 H 89 88 Pulse Rate [ From Monitor] Respiratory 14 25 H 21 Rate Blood Pressure 108/74 108/74 125/87 O2 Sat by Pulse 97 98 95 Oximetry 04/02/22 04/02/22 04/02/22 10:11 10:21 11:09 Temperature Pulse Rate 90 86 95 H Pulse Rate [ From Monitor] Respiratory 26 H 21 19 Rate Blood Pressure 125/87 125/87 125/87 O2 Sat by Pulse 96 92 97 Oximetry 04/02/22 04/02/22 04/02/22 11:11 11:21 11:31 Temperature Pulse Rate 104 H 97 H 94 H Pulse Rate [ From Monitor] Respiratory 26 H 25 H 25 H Rate Blood Pressure 125/87 125/87 125/87 O2 Sat by Pulse 98 98 98 Oximetry 04/02/22 04/02/22 04/02/22 11:36 11:41 11:49 Temperature 98.4 F Pulse Rate 95 H 97 H Pulse Rate [ 95 H From Monitor] Respiratory 22 18 Rate Blood Pressure 125/87 O2 Sat by Pulse 98 98 Oximetry 04/02/22 04/02/22 11:51 12:01 Temperature Pulse Rate 96 H 96 H Pulse Rate [ From Monitor] Respiratory 27 H 30 H Rate Blood Pressure 125/87 153/96 O2 Sat by Pulse 99 97 Oximetry CBC and BMP: 04/02/22 04:15 04/02/22 04:15 ABG, PT/INR, D-dimer: PT/INR, D-dimer PT 19.3 Sec. (12.2-14.9) H 04/01/22 16:04 INR 1.44 (0.87-1.13) H 04/01/22 16:04 Abnormal lab findings: Abnormal Labs 03/29/22 03/29/22 03/29/22 15:29 15:49 15:49 WBC Hgb 15.5 H Hct 46.1 H RDW 13.0 L Plt Count 95 L Lymph % (Auto) [place] % (Auto) [place] # (Auto) Seg Neutrophils % 73.3 H Seg Neutrophils # PT INR Heparin Anti-Xa Level VBG pH Sodium 133 L Potassium 5.2 H Chloride 95.0 L Carbon Dioxide 13 L BUN Creatinine 1.3 H Glucose 574 H* POC Glucose 466 H Hemoglobin A1c Calcium Phosphorus Ferritin AST 217 H ALT 206 H Total Creatine Kinase CK-MB (CK-2) Troponin T Triglycerides 03/29/22 03/29/22 03/29/22 15:49 15:49 15:49 WBC Hgb Hct RDW Plt Count Lymph % (Auto) [place] % (Auto) [place] # (Auto) Seg Neutrophils % Seg Neutrophils # PT 15.2 H INR Heparin Anti-Xa Level VBG pH 7.213 L Sodium Potassium Chloride Carbon Dioxide BUN Creatinine Glucose POC Glucose Hemoglobin A1c Calcium Phosphorus 6.80 H Ferritin AST ALT Total Creatine Kinase 146 H CK-MB (CK-2) 5.1 H Troponin T 0.167 H* Triglycerides 168 H 07/13/22 07/13/22 07/13/22 19:10 20:16 20:26 WBC Hgb Hct RDW Plt Count Lymph % (Auto) [place] % (Auto) [place] # (Auto) Seg Neutrophils % Seg Neutrophils # PT INR Heparin Anti-Xa Level VBG pH Sodium 135 L Potassium Chloride Carbon Dioxide 13 L BUN Creatinine Glucose 399 H POC Glucose 481 H 440 H Hemoglobin A1c Calcium Phosphorus Ferritin AST ALT Total Creatine Kinase CK-MB (CK-2) Troponin T Triglycerides 03/29/22 03/29/22 03/29/22 21:15 22:20 23:26 WBC Hgb Hct RDW Plt Count Lymph % (Auto) [place] % (Auto) [place] # (Auto) Seg Neutrophils % Seg Neutrophils # PT INR Heparin Anti-Xa Level VBG pH Sodium Potassium Chloride Carbon Dioxide BUN Creatinine Glucose POC Glucose 299 H 363 H 202 H Hemoglobin A1c Calcium Phosphorus Ferritin AST ALT Total Creatine Kinase CK-MB (CK-2) Troponin T Triglycerides 03/30/22 03/30/22 03/30/22 00:35 01:31 01:44 WBC Hgb Hct RDW Plt Count Lymph % (Auto) [place] % (Auto) [place] # (Auto) Seg Neutrophils % Seg Neutrophils # PT INR Heparin Anti-Xa Level VBG pH Sodium 136 L Potassium Chloride Carbon Dioxide 14 L BUN Creatinine Glucose 196 H POC Glucose 177 H 162 H Hemoglobin A1c Calcium Phosphorus Ferritin AST ALT Total Creatine Kinase CK-MB (CK-2) Troponin T Triglycerides 03/30/22 03/30/22 03/30/22 03:19 05:29 06:42 WBC Hgb Hct RDW Plt Count Lymph % (Auto) [place] % (Auto) [place] # (Auto) Seg Neutrophils % Seg Neutrophils # PT INR Heparin Anti-Xa Level VBG pH Sodium Potassium Chloride Carbon Dioxide BUN Creatinine Glucose POC Glucose 152 H 188 H 177 H Hemoglobin A1c Calcium Phosphorus Ferritin AST ALT Total Creatine Kinase CK-MB (CK-2) Troponin T Triglycerides 03/30/22 03/30/22 03/30/22 07:30 11:45 12:05 WBC Hgb Hct RDW Plt Count Lymph % (Auto) [place] % (Auto) [place] # (Auto) Seg Neutrophils % Seg Neutrophils # PT INR Heparin Anti-Xa Level VBG pH Sodium Potassium Chloride Carbon Dioxide BUN Creatinine Glucose POC Glucose 141 H Hemoglobin A1c 10.1 H Calcium Phosphorus Ferritin AST ALT Total Creatine Kinase CK-MB (CK-2) Troponin T 0.046 H D Triglycerides 03/30/22 03/30/22 03/30/22 19:11 22:19 22:19 WBC Hgb Hct RDW Plt Count Lymph % (Auto) [place] % (Auto) [place] # (Auto) Seg Neutrophils % Seg Neutrophils # PT INR Heparin Anti-Xa Level VBG pH Sodium 135 L Potassium 6.6 H* D Chloride Carbon Dioxide 17 L BUN 30 H Creatinine 1.3 H Glucose 171 H POC Glucose 118 H Hemoglobin A1c Calcium Phosphorus Ferritin AST ALT Total Creatine Kinase CK-MB (CK-2) Troponin T 0.033 H D Triglycerides 03/31/22 03/31/22 03/31/22 03:05 03:05 08:21 WBC 14.0 H Hgb 14.8 H Hct 44.7 H RDW Plt Count 71 L Lymph % (Auto) 13.2 L [place] % (Auto) [place] # (Auto) Seg Neutrophils % 80.5 H Seg Neutrophils # 11.2 H PT INR Heparin Anti-Xa Level VBG pH Sodium Potassium 5.6 H Chloride Carbon Dioxide 18 L BUN 30 H Creatinine Glucose 208 H POC Glucose 206 H Hemoglobin A1c Calcium Phosphorus Ferritin AST ALT Total Creatine Kinase CK-MB (CK-2) Troponin T Triglycerides 03/31/22 03/31/22 03/31/22 09:43 12:43 15:15 WBC Hgb Hct RDW Plt Count Lymph % (Auto) [place] % (Auto) [place] # (Auto) Seg Neutrophils % Seg Neutrophils # PT INR Heparin Anti-Xa Level VBG pH Sodium 136 L Potassium Chloride Carbon Dioxide 17 L 20 L BUN 28 H 22 H Creatinine Glucose 221 H 247 H POC Glucose 225 H Hemoglobin A1c Calcium Phosphorus Ferritin AST ALT Total Creatine Kinase CK-MB (CK-2) Troponin T Triglycerides 03/31/22 03/31/22 03/31/22 15:15 15:15 15:53 WBC Hgb Hct RDW 12.6 L Plt Count 63 L Lymph % (Auto) [place] % (Auto) [place] # (Auto) Seg Neutrophils % 78.2 H Seg Neutrophils # 8.4 H PT 17.8 H INR 1.27 H Heparin Anti-Xa Level VBG pH Sodium Potassium Chloride Carbon Dioxide BUN Creatinine Glucose POC Glucose 241 H Hemoglobin A1c Calcium Phosphorus Ferritin AST ALT Total Creatine Kinase CK-MB (CK-2) Troponin T Triglycerides 03/31/22 03/31/22 03/31/22 19:32 19:32 20:59 WBC 12.0 H Hgb Hct RDW 12.8 L Plt Count 67 L Lymph % (Auto) [place] % (Auto) 7.7 H [place] # (Auto) 0.9 H Seg Neutrophils % 72.0 H Seg Neutrophils # 8.7 H PT INR Heparin Anti-Xa Level 0.77 H VBG pH Sodium Potassium Chloride Carbon Dioxide BUN Creatinine Glucose POC Glucose 107 H Hemoglobin A1c Calcium Phosphorus Ferritin AST ALT Total Creatine Kinase CK-MB (CK-2) Troponin T Triglycerides 03/31/22 03/31/22 03/31/22 21:49 Unknown Unknown WBC Hgb Hct RDW Plt Count Lymph % (Auto) [place] % (Auto) [place] # (Auto) Seg Neutrophils % Seg Neutrophils # PT INR Heparin Anti-Xa Level VBG pH Sodium 133 L Potassium Chloride Carbon Dioxide 14 L BUN 21 H Creatinine Glucose 210 H POC Glucose 121 H Hemoglobin A1c Calcium Phosphorus Ferritin 453.4 H AST ALT Total Creatine Kinase CK-MB (CK-2) Troponin T Triglycerides 04/01/22 04/01/22 04/01/22 00:46 01:14 01:14 WBC 11.4 H Hgb Hct RDW 13.0 L Plt Count 57 L Lymph % (Auto) [place] % (Auto) 8.1 H [place] # (Auto) 0.9 H Seg Neutrophils % 70.2 H Seg Neutrophils # 8.0 H PT INR Heparin Anti-Xa Level VBG pH Sodium 131 L Potassium 3.3 L Chloride Carbon Dioxide 19 L BUN Creatinine Glucose 158 H POC Glucose 173 H Hemoglobin A1c Calcium 8.2 L Phosphorus Ferritin AST ALT Total Creatine Kinase CK-MB (CK-2) Troponin T Triglycerides 04/01/22 04/01/22 04/01/22 01:14 03:10 05:31 WBC Hgb Hct RDW Plt Count Lymph % (Auto) [place] % (Auto) [place] # (Auto) Seg Neutrophils % Seg Neutrophils # PT INR Heparin Anti-Xa Level 0.15 L VBG pH Sodium 135 L Potassium 3.5 L Chloride Carbon Dioxide 19 L BUN Creatinine Glucose 142 H POC Glucose 113 H Hemoglobin A1c Calcium 7.9 L Phosphorus Ferritin AST ALT Total Creatine Kinase CK-MB (CK-2) Troponin T Triglycerides 04/01/22 04/01/22 04/01/22 05:31 05:31 06:20 WBC Hgb Hct RDW 12.8 L Plt Count 55 L Lymph % (Auto) [place] % (Auto) 9.7 H [place] # (Auto) 1.0 H Seg Neutrophils % Seg Neutrophils # PT INR Heparin Anti-Xa Level 0.15 L VBG pH Sodium Potassium Chloride Carbon Dioxide BUN Creatinine Glucose POC Glucose 154 H Hemoglobin A1c Calcium Phosphorus Ferritin AST ALT Total Creatine Kinase CK-MB (CK-2) Troponin T Triglycerides 04/01/22 04/01/22 04/01/22 09:31 09:37 10:38 WBC Hgb Hct RDW Plt Count Lymph % (Auto) [place] % (Auto) [place] # (Auto) Seg Neutrophils % Seg Neutrophils # PT INR Heparin Anti-Xa Level VBG pH Sodium 136 L Potassium 3.1 L Chloride Carbon Dioxide 20 L BUN Creatinine Glucose 104 H POC Glucose 115 H 117 H Hemoglobin A1c Calcium 7.5 L Phosphorus Ferritin AST ALT Total Creatine Kinase CK-MB (CK-2) Troponin T Triglycerides 04/01/22 04/01/22 04/01/22 11:43 15:46 16:04 WBC Hgb Hct RDW Plt Count Lymph % (Auto) [place] % (Auto) [place] # (Auto) Seg Neutrophils % Seg Neutrophils # PT 19.3 H INR 1.44 H Heparin Anti-Xa Level VBG pH Sodium Potassium Chloride Carbon Dioxide BUN Creatinine Glucose POC Glucose 116 H 183 H Hemoglobin A1c Calcium Phosphorus Ferritin AST ALT Total Creatine Kinase CK-MB (CK-2) Troponin T Triglycerides 04/01/22 04/02/22 04/02/22 16:04 04:15 04:15 WBC Hgb Hct RDW 12.5 L Plt Count 69 L Lymph % (Auto) [place] % (Auto) [place] # (Auto) Seg Neutrophils % Seg Neutrophils # PT INR Heparin Anti-Xa Level VBG pH Sodium 135 L Potassium Chloride Carbon Dioxide 20 L BUN Creatinine Glucose 198 H 111 H POC Glucose Hemoglobin A1c Calcium 8.0 L 8.2 L Phosphorus Ferritin AST ALT Total Creatine Kinase CK-MB (CK-2) Troponin T Triglycerides 04/02/22 04/02/22 07:38 11:28 WBC Hgb Hct RDW Plt Count Lymph % (Auto) [place] % (Auto) [place] # (Auto) Seg Neutrophils % Seg Neutrophils # PT INR Heparin Anti-Xa Level VBG pH Sodium Potassium Chloride Carbon Dioxide BUN Creatinine Glucose POC Glucose 106 H 158 H Hemoglobin A1c Calcium Phosphorus Ferritin AST ALT Total Creatine Kinase CK-MB (CK-2) Troponin T Triglycerides Allied health notes reviewed: nursing
[2022-04-02] MEDS: ALPRAZolam 0.25 MG TAB PO PRN (13:33)
[2022-04-02] MEDS ORDERED: hydrALAZINE 20 MG/1 ML INJ IV SCH (14:00)
--- NOTE | 2022-04-02 14:01 | Cat Scan Report ---
CT ABDOMEN AND PELVIS WITHOUT AND WITH CONTRAST INDICATION / CLINICAL INFORMATION: Rule out malignancy. No other relevant history provided. TECHNIQUE: Axial CT images were obtained through the abdomen and pelvis before and after 100 cc of Omnipaque [address] scans at this location are performed using CT dose reduction for ALARA by means of automated exposure control. COMPARISON: None available. FINDINGS: LOWER CHEST: There are small bilateral pleural effusions right greater than left. There is some airsp mimi opacity in the lung bases likely representing atelectasis. LIVER: There is focal fatty infiltration of liver adjacent to the falciform ligament. GALLBLADDER: There is a small amount of pericholecystic fluid. The gallbladder wall does not appear t hickened. This is nonspecific. BILE DUCTS: No significant abnormality. PANCREAS: No significant abnormality. SPLEEN: No significant abnormality. ADRENALS: No significant abnormality. RIGHT KIDNEY and URETER: No significant abnormality. LEFT KIDNEY and URETER: No significant abnormality. STOMACH and SMALL BOWEL: No significant abnormality. COLON: No significant abnormality. APPENDIX: No significant abnormality. PERITONEUM: There is a small amount of free fluid in the dependent portion of the pelvis. No free air . No fluid collection. LYMPH NODES: No significant adenopathy. AORTA and ARTERIES: No significant abnormality. IVC and VEINS: No significant abnormality. URINARY BLADDER: No significant abnormality. REPRODUCTIVE ORGANS: There are a few hypodensities noted in the uterus characteristic of fibroids. ADDITIONAL FINDINGS: None. SKELETAL SYSTEM: There is sclerotic change noted along the SI joints bilaterally suggesting sacroilii tis. This is greater on the left than the right. IMPRESSION: 1. There are hypodensities in the uterus characteristic of fibroids. 2. No suspicious mass lesions are seen. No adenopathy is seen. 3. There are small bilateral pleural effusions. Dependent airspace opacities in the lung bases likely represents atelectasis. 4. There is a small amount of pericholecystic fluid. This is nonspecific but can be an indication of cholecystitis. Clinical correlation and laboratory correlation is recommended. If cholecystitis is a clinical concern, nuclear medicine HIDA scan can be obtained to further evaluate. Signer Name: Marc Mckeon MD Signed: 04/02/2022 1:57 PM Workstation Name: [id number]
[2022-04-02] MEDS: hydrALAZINE 20 MG/1 ML INJ IV PRN (19:48)
[2022-04-03 06:28] LABS: Hematocrit 38.2 % (30.3-42.9); Hemoglobin 13.1 gm/dl (10.1-14.3); Mean Corpuscular HGB Conc 34 % (30-34); Mean Corpuscular Volume 94 fl (79-97); Red Blood Count 4.07 M/mm3 (3.65-5.03); Red Cell Distribution Width 12.5 % (13.2-15.2)
[2022-04-03 06:35] LABS: Platelet Count 88 K/mm3 (140-440)
--- NOTE | 2022-04-03 08:40 | Progress Note ---
Assessment and Plan Assessment and plan: History Interval history: This is a 46-year-old -[place] female with anxiety who presented to the emergency department on 03/29 with a 10 to 14-day history of weakness and shortness of breath with some nausea via EMS. Blood glucose Accu-Chek was very high above 500. Work-up in the emergency department revealed elevated blood glucose with increased anion gap and patient was admitted to the hospitalist service with new diagnosis of diabetes mellitus and for DKA to ICU for IV insulin drip and IV fluids with consult to cardiology and [facility]. Hospital Course: 03/31: AG remains open: 21. Continue insulin gtt/IVF per dka protocol. K noted to be elevated, fluids modified to D5w/1/2NS. D/w Cardiology, right atrial mass visualized on TTE. Will need KRISTIE on sunday. NM stress canceled. Vascular surgery and heme-onc consulted. 04/01: S/p thrombectomy with EKOS catheter in place on heparin drip. To be started on argatroban drip per heme-onc. Patient remained insulin drip for this afternoon after removal of EKOS catheter she was transitioned to SSI, CC diet and long-acting insulin. Potassium repleted. Patient states she hasnt had a mammogram, colonoscopy, no personal history of cancer, no use of control. Patient states her mother does have colon cancer. 04/02: Patient remains off insulin gtt, hemodynamically stable and on RA. Changed to PO eliquis. Abd/pelvis imaging pending. Transfer to floor. ABD US completed which shows fibroids. 04/03: Asymptomatic on encounter. BP elevated, will initiate lisinopril. D/w Dr. Lynn, CTA chest ordered as persisting thrombus visualized on AM TTE. Will follow for IR plans pending CTA chest result. Assessment and plan: neuro: h/o anxiety -Reorientation as needed -Verbal de-escalation as needed -PRN ativan -Maintain sleep-wake cycle Cardio: Type II DE -Presented with chest pain -Cardiology consulted, appreciate recommendations -Blood pressure monitoring per protocol -Echo 03/30/2022: EF 50 to 55%. Septum is flattened in diastole consistent with RV volume overload. Right ventricular systolic function is normal. Mobile echo bright density present in right atrium. -PRn hydral Pulmonary: Submassive pulmonary embolism -CTA shows large submassive BL PE, RV strain visible. -CCM and vascular surgery consulted, appreciate recommendations -S/p EKOS on 03/31/2022 -PO eliquis -Pulmonary hygiene -Supplemental oxygen as needed -SPO2 monitoring GI: Morbid obesity -CC diet -24 hours -85 ml -PPI -BR: Colace -Encourage dietary and lifestyle modifications upon discharge -Will need outpatient EGD as she does endorse 1st degree family with colon CA : NAD -Monitor intake and output -Renally dose medications -Avoid nephrotoxic medications -Trend BMP Endocrine: s/p DKA, DM -Presented with anion gap of 19, blood glucose 574, ketonuria and VBG with a pH of 7.2 -Transition to SSI and long-acting insulin -Hemoglobin A1c 10.1 -CC diet -Avoid hypoglycemia ID: [id number] -Monitor WBC and temperature curve Heme: Thrombocytopenia, unprovoked pulmonary embolism -Hematology/oncology consulted, appreciate recommendations -stopped Argatroban drip -HIT panel pending -Cardiolipin antibody screen, hemoglobinopathy evaluation, Augustine 2 mutation pending -Trend CBC -Transfuse hemoglobin less than 7 -CT abdomen/pelvis shows small bilateral pleural effusions (right greater than left), focal fat infiltration of the liver, small amount of pericholecystic fluid, small amount of free fluid in the dependent portion of the pelvis, few hypodensities noted in the uterus characteristic of fibroids, no suspicious mass lesions are seen, no adenopathy seen -Pelvis US shows fibroids -recommend outpatient follow up with [facility] -Will need colonoscopy (outpatient) as mother has colon cancer Total Time Spent with Patient (Minutes): 45 History Interval history: no acute complaints. D/w patient need for re-assessment of thrombus as it was visualized on TTE completed this AM. Patient verbalized understanding. Hospitalist Physical - Physical exam Narrative exam: Physical Exam: VITAL SIGNS: Reviewed. GENERAL: The patient appears normally developed, Vital signs as documented. Obese HEAD: No signs of head trauma. EYES: Pupils are equal. Extraocular motions intact. EARS: Hearing grossly intact. MOUTH: Oropharynx is normal. NECK: No adenopathy, no JVD. CHEST: Chest with clear breath sounds bilaterally. No wheezes, rales, or rhonchi. CARDIAC: Regular rate and rhythm. S1 and S2, without murmurs, gallops, or rubs. VASCULAR: No Edema. Peripheral pulses normal and equal in all extremities. ABDOMEN: Soft, non tender and non distended. No rebound or guarding, and no masses palpated. Bowel Sounds normal. MUSCULOSKELETAL: Good range of motion of all major joints. Extremities without clubbing, cyanosis or edema. NEUROLOGIC EXAM: Alert and oriented x 4. no focal sensory or strength deficits. PSYCHIATRIC: Mood normal. SKIN: detail exam as documented in skin assessment - Constitutional Vitals: Temp Pulse Resp BP Pulse Ox 98.9 F 102 H 20 133/79 98 04/02/22 22:38 04/02/22 22:38 04/02/22 22:38 04/02/22 22:38 04/02/22 22:38 General appearance: Present: no acute distress HEART Score - HEART Score Troponin: Troponin T 0.033 ng/mL (0.00-0.029) H D 03/30/22 22:19 Results - Labs CBC & Chem 7: 04/03/22 05:48 04/02/22 04:15 Labs: Laboratory Last Values WBC 7.3 K/mm3 (4.5-11.0) 04/03/22 05:48 RBC 4.07 M/mm3 (3.65-5.03) 04/03/22 05:48 Hgb 13.1 gm/dl (10.1-14.3) 04/03/22 05:48 Hct 38.2 % (30.3-42.9) 04/03/22 05:48 MCV 94 fl (79-97) 04/03/22 05:48 MCH 32 pg (28-32) 04/03/22 05:48 MCHC 34 % (30-34) 04/03/22 05:48 RDW 12.5 % (13.2-15.2) L 04/03/22 05:48 Plt Count 88 K/mm3 (140-440) L 04/03/22 05:48 Lymph % (Auto) 23.7 % (13.4-35.0) 04/01/22 05:31 [place] % (Auto) 9.7 % (0.0-7.3) H 04/01/22 05:31 Eos % (Auto) 0.3 % (0.0-4.3) 04/01/22 05:31 Baso % (Auto) 0.3 % (0.0-1.8) 04/01/22 05:31 Lymph # (Auto) 2.5 K/mm3 (1.2-5.4) 04/01/22 05:31 [place] # (Auto) 1.0 K/mm3 (0.0-0.8) H 04/01/22 05:31 Eos # (Auto) 0.0 K/mm3 (0.0-0.4) 04/01/22 05:31 Baso # (Auto) 0.0 K/mm3 (0.0-0.1) 04/01/22 05:31 Seg Neutrophils % 66.0 % (40.0-70.0) 04/01/22 05:31 Seg Neutrophils # 6.9 K/mm3 (1.8-7.7) 04/01/22 05:31 PT 19.3 Sec. (12.2-14.9) H 04/01/22 16:04 INR 1.44 (0.87-1.13) H 04/01/22 16:04 APTT 32.3 Sec. (24.2-36.6) 04/01/22 16:04 Fibrinogen 330 mg/dl (211-480) 04/01/22 05:31 Heparin Anti-Xa Level 0.15 U.I./ml (0.3-0.7) L 04/01/22 05:31 VBG pH 7.213 (7.320-7.420) L 03/29/22 15:49 Sodium 139 mmol/L (137-145) 04/02/22 04:15 Potassium 3.6 mmol/L (3.6-5.0) 04/02/22 04:15 Chloride 105.7 mmol/L (98-107) 04/02/22 04:15 Carbon Dioxide 23 mmol/L (22-30) 04/02/22 04:15 Anion Gap 14 mmol/L 04/02/22 04:15 BUN 9 mg/dL (7-17) 04/02/22 04:15 Creatinine 0.7 mg/dL (0.6-1.2) 04/02/22 04:15 Estimated GFR > 60 ml/min 04/02/22 04:15 BUN/Creatinine Ratio 13 % 04/02/22 04:15 Glucose 111 mg/dL (65-100) H 04/02/22 04:15 POC Glucose 124 mg/dL (70-105) H 04/03/22 08:00 Hemoglobin A1c 10.1 % (4-6) H 03/30/22 12:05 Calcium 8.2 mg/dL (8.4-10.2) L 04/02/22 04:15 Phosphorus 4.00 mg/dL (2.5-4.5) 03/31/22 09:43 Magnesium 1.70 mg/dL (1.7-2.3) 04/02/22 04:15 Iron 40 ug/dL (37-170) 03/31/22 Unknown TIBC 368 mcg/dL (250-450) 03/31/22 Unknown Ferritin 453.4 ng/mL (10.0-200.0) H 03/31/22 Unknown Total Bilirubin 0.50 mg/dL (0.1-1.2) 03/29/22 15:49 AST 217 units/L (5-40) H 03/29/22 15:49 ALT 206 units/L (7-56) H 03/29/22 15:49 Alkaline Phosphatase 79 units/L (35-129) 03/29/22 15:49 Total Creatine Kinase 146 units/L (30-135) H 03/29/22 15:49 CK-MB (CK-2) 5.1 ng/mL (0.0-4.0) H 03/29/22 15:49 CK-MB (CK-2) Rel Index 3.4 (0-4) 03/29/22 15:49 Troponin T 0.033 ng/mL (0.00-0.029) H D 03/30/22 22:19 Total Protein 7.2 g/dL (6.3-8.2) 03/29/22 15:49 Albumin 4.2 g/dL (3.9-5) 03/29/22 15:49 Albumin/Globulin Ratio 1.4 % 03/29/22 15:49 Triglycerides 168 mg/dL (2-149) H 03/29/22 15:49 Cholesterol 190 mg/dL (50-199) 03/29/22 15:49 LDL Cholesterol Direct 127 mg/dL (50-130) 03/29/22 15:49 HDL Cholesterol 52 mg/dL (40-59) 03/29/22 15:49 Cholesterol/HDL Ratio 3.65 % 03/29/22 15:49 TSH 1.120 mlU/mL (0.270-4.200) 03/29/22 15:49 Free T4 1.42 ng/dL (0.76-1.46) 03/29/22 15:49 HCG, Qual Negative (Negative) 03/29/22 15:49 Urine Color Yellow (Yellow) 03/30/22 06:43 Urine Turbidity Slightly-cloudy (Clear) 03/30/22 06:43 Urine pH 5.0 (5.0-7.0) 03/30/22 06:43 Ur Specific [place] 1.020 (1.003-1.030) 03/30/22 06:43 Urine Protein 100 mg/dl mg/dL (Negative) 03/30/22 06:43 Urine Glucose (UA) >=500 mg/dL (Negative) 03/30/22 06:43 Urine Ketones 20 mg/dL (Negative) 03/30/22 06:43 Urine Blood Mod (Negative) 03/30/22 06:43 Urine Nitrite Neg (Negative) 03/30/22 06:43 Urine Bilirubin Neg (Negative) 03/30/22 06:43 Urine Urobilinogen 2.0 mg/dL (<2.0) 03/30/22 06:43 Ur Leukocyte Esterase Neg (Negative) 03/30/22 06:43 Urine WBC (Auto) 4.0 /HPF (0.0-6.0) 03/30/22 06:43 Urine RBC (Auto) 9.0 /HPF (0.0-6.0) 03/30/22 06:43 U Epithel Cells (Auto) 9.0 /HPF (0-13.0) 03/30/22 06:43 Urine Bacteria (Auto) 1+ /HPF (Negative) 03/30/22 06:43 Hyaline Casts 54 /LPF 03/30/22 06:43 Urine Mucus Few /HPF 03/30/22 06:43 Urine Opiates Screen Negative 03/30/22 06:43 Urine Methadone Screen Negative 03/30/22 06:43 Ur Barbiturates Screen Negative 03/30/22 06:43 Ur Phencyclidine Scrn Negative 03/30/22 06:43 Ur Amphetamines Screen Negative 03/30/22 06:43 U Benzodiazepines Scrn Negative 03/30/22 06:43 Urine Cocaine Screen Negative 03/30/22 06:43 U Marijuana (THC) Screen Negative 03/30/22 06:43 Drugs of Abuse Note Disclamer 03/30/22 06:43 Mcclain/IV: Voiding Method Toilet Active Medications - Current Medications Current Medications: Generic Name Dose Route Start Last Admin Trade Name Freq PRN Reason Stop Dose Admin Acetaminophen 650 mg 03/31/22 15:04 04/01/22 21:40 Acetaminophen 325 Mg Tab PO 650 mg Q6H PRN Administration Pain, Mild (1-3) Alprazolam 0.25 mg 03/30/22 13:00 04/02/22 13:33 Alprazolam 0.25 Mg Tab PO 0.25 mg Q8H PRN Administration Anxiety Apixaban 10 mg 04/01/22 14:30 04/02/22 22:33 Apixaban 5 Mg Tab PO 04/07/22 22:01 10 mg Q12HR J LUIS Administration Protocol Apixaban 5 mg 04/08/22 10:00 Apixaban 5 Mg Tab PO 10/05/22 09:59 Q12HR J LUIS Protocol Dextrose 50 ml 04/01/22 14:02 Dextrose 50% In Water (25gm) 50 Ml Syringe IV Q30MIN PRN Hypoglycemia Protocol Hydralazine HCl 10 mg 04/02/22 13:54 04/02/22 19:48 Hydralazine 20 Mg/1 Ml Inj IV 10 mg Q4HR PRN Administration Blood Pressure Potassium Chloride 10 meq in 100 mls @ 100 mls/hr 03/31/22 09:28 Kcl 10meq/100ml IV Q1H PRN LOW Potassium Levels Potassium Chloride 10 meq in 100 mls @ 100 mls/hr 03/31/22 09:28 Kcl 10meq/100ml IV Q1H PRN LOW Potassium Levels Ibuprofen 600 mg 03/29/22 17:42 Ibuprofen 600 Mg Tab PO Q6H PRN Pain, Mild (1-3) Insulin Glargine 10 units 04/01/22 14:30 04/02/22 09:33 Insulin Glargine 100 Units/Ml SUB-Q 10 units QAMDIAB J LUIS Administration Insulin Human Lispro 0 unit 04/01/22 16:30 04/02/22 22:33 Insulin Lispro 100 Unit/Ml SUB-Q 2 unit ACHS J LUIS Administration Protocol Morphine Sulfate 2 mg 03/29/22 17:42 04/02/22 19:48 Morphine 2 Mg/1 Ml Inj IV 2 mg Q4H PRN Administration Pain, Moderate (4-6) Ondansetron HCl 4 mg 03/31/22 14:18 03/31/22 14:25 Ondansetron 4 Mg/2 Ml Inj IV 4 mg Q8H PRN Administration Nausea And Vomiting Sodium Chloride 10 ml 03/29/22 22:00 04/02/22 22:40 Sodium Chloride 0.9% 10 Ml Flush Syringe IV 10 ml BID J LUIS Administration Sodium Chloride 10 ml 03/29/22 17:42 04/01/22 02:32 Sodium Chloride 0.9% 10 Ml Flush Syringe IV 10 ml PRN PRN Administration LINE FLUSH Nutrition/Malnutrition Assess - Dietary Evaluation Nutrition/Malnutrition Findings: Nutrition Notes Start: 03/30/22 12:4 9 Freq: Status: Active Protocol: Document 03/30/22 12:49 CORY (Rec: 03/30/22 12:58 CORY [id number]) Nutrition Notes Need for Assessment generated from: MD Order,Education Initial or Follow up Brief Note Current Diagnosis Diabetes Other Pertinent Diagnosis DKA, Chest Pain, Elevated Troponin, Metabolic Acidosis, Anxiety. Current Diet Consistent Carbohydrates Diet (since B 03/30), NPO (from 00:01). Height 5 ft 3 in Weight 86.183 kg [place] Body Weight (kg) 52.27 BMI 33.6 Weight change and time frame None provided at admission. Weight Status Obese Subjective/Other Information RD consult for nutrition education assessment. Pt currently on Consistent Carbohydrates Diet, but will be NPO after midnight, no reports available on Pt's PO intake of meals at the time, will assess at F/U. Pt is on Nasal Cannula, O2 saturation @ 98%, according to Vital Signs notes. Pt still in critical condition , not a candidate for Nutrition Education at the time, will assess feasibility on F/U. Percent of energy/protein needs met: Prescribed Consistent Carbohydrates Diet provides for energy/protein needs (2, 061 Kcal/91 g) during LOS. Nutrition Intervention Follow-Up By: 04/06/22 Additional Comments Nutrition education will be provided at F/U, if feasible. Continue monitoring food tolerance, %PO intake of meals , and BM.
--- NOTE | 2022-04-03 09:08 | Progress Note ---
Assessment and Plan 03/31/22: Continue insulin drip until gap closes. 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 Likely hold on KRISTIE. Anticoagulation, [employer] to discuss with Heme if Argatroban is what is wanted post EKOS removal given low platelets. Can likely transition to long acting insulin once able to eat. FSBS ac and qhs. SSI. Will need age appropriate screening for malignancy as well as hypercoagulable work up as out patient if malignancy is not found. 04/02/22: follow up CT of abdomen pelvis results. Anticoagulation per heme, stable for transfer to floor. 04/03/22: continue anticoagulation. Follow up cards recs. NPO Continue insulin drip Needs repeat labs to assess anion Gap IVF's Subjective Date of service: 04/03/22 Principal diagnosis: Bilateral PE Interval history: No acute events. NPO Objective Vital Signs - 12hr 04/02/22 04/02/22 22:00 22:38 Temperature 98.9 F Pulse Rate 102 H Respiratory 20 Rate Blood Pressure 133/79 O2 Sat by Pulse 98 98 Oximetry CBC and BMP: 04/03/22 05:48 04/02/22 04:15 ABG, PT/INR, D-dimer: PT/INR, D-dimer PT 19.3 Sec. (12.2-14.9) H 04/01/22 16:04 INR 1.44 (0.87-1.13) H 04/01/22 16:04 Abnormal lab findings: Abnormal Labs 03/29/22 03/29/22 03/29/22 15:29 15:49 15:49 WBC Hgb 15.5 H Hct 46.1 H RDW 13.0 L Plt Count 95 L Lymph % (Auto) Citrus % (Auto) [place] # (Auto) Seg Neutrophils % 73.3 H Seg Neutrophils # PT INR Heparin Anti-Xa Level VBG pH Sodium 133 L Potassium 5.2 H Chloride 95.0 L Carbon Dioxide 13 L BUN Creatinine 1.3 H Glucose 574 H* POC Glucose 466 H Hemoglobin A1c Calcium Phosphorus Ferritin AST 217 H ALT 206 H Total Creatine Kinase CK-MB (CK-2) Troponin T Triglycerides 03/29/22 03/29/22 03/29/22 15:49 15:49 15:49 WBC Hgb Hct RDW Plt Count Lymph % (Auto) [place] % (Auto) [place] # (Auto) Seg Neutrophils % Seg Neutrophils # PT 15.2 H INR Heparin Anti-Xa Level VBG pH 7.213 L Sodium Potassium Chloride Carbon Dioxide BUN Creatinine Glucose POC Glucose Hemoglobin A1c Calcium Phosphorus 6.80 H Ferritin AST ALT Total Creatine Kinase 146 H CK-MB (CK-2) 5.1 H Troponin T 0.167 H* Triglycerides 168 H 03/29/22 03/29/22 03/29/22 19:10 20:16 20:26 WBC Hgb Hct RDW Plt Count Lymph % (Auto) [place] % (Auto) [place] # (Auto) Seg Neutrophils % Seg Neutrophils # PT INR Heparin Anti-Xa Level VBG pH Sodium 135 L Potassium Chloride Carbon Dioxide 13 L BUN Creatinine Glucose 399 H POC Glucose 481 H 440 H Hemoglobin A1c Calcium Phosphorus Ferritin AST ALT Total Creatine Kinase CK-MB (CK-2) Troponin T Triglycerides 03/29/22 03/29/22 03/29/22 21:15 22:20 23:26 WBC Hgb Hct RDW Plt Count Lymph % (Auto) [place] % (Auto) [place] # (Auto) Seg Neutrophils % Seg Neutrophils # PT INR Heparin Anti-Xa Level VBG pH Sodium Potassium Chloride Carbon Dioxide BUN Creatinine Glucose POC Glucose 299 H 363 H 202 H Hemoglobin A1c Calcium Phosphorus Ferritin AST ALT Total Creatine Kinase CK-MB (CK-2) Troponin T Triglycerides 03/30/22 03/30/22 03/30/22 00:35 01:31 01:44 WBC Hgb Hct RDW Plt Count Lymph % (Auto) [place] % (Auto) [place] # (Auto) Seg Neutrophils % Seg Neutrophils # PT INR Heparin Anti-Xa Level VBG pH Sodium 136 L Potassium Chloride Carbon Dioxide 14 L BUN Creatinine Glucose 196 H POC Glucose 177 H 162 H Hemoglobin A1c Calcium Phosphorus Ferritin AST ALT Total Creatine Kinase CK-MB (CK-2) Troponin T Triglycerides 03/30/22 03/30/22 03/30/22 03:19 05:29 06:42 WBC Hgb Hct RDW Plt Count Lymph % (Auto) [place] % (Auto) [place] # (Auto) Seg Neutrophils % Seg Neutrophils # PT INR Heparin Anti-Xa Level VBG pH Sodium Potassium Chloride Carbon Dioxide BUN Creatinine Glucose POC Glucose 152 H 188 H 177 H Hemoglobin A1c Calcium Phosphorus Ferritin AST ALT Total Creatine Kinase CK-MB (CK-2) Troponin T Triglycerides 03/30/22 03/30/2222 07:30 11:45 12:05 WBC Hgb Hct RDW Plt Count Lymph % (Auto) [place] % (Auto) [place] # (Auto) Seg Neutrophils % Seg Neutrophils # PT INR Heparin Anti-Xa Level VBG pH Sodium Potassium Chloride Carbon Dioxide BUN Creatinine Glucose POC Glucose 141 H Hemoglobin A1c 10.1 H Calcium Phosphorus Ferritin AST ALT Total Creatine Kinase CK-MB (CK-2) Troponin T 0.046 H D Triglycerides 03/30/22 03/30/22 03/30/22 19:11 22:19 22:19 WBC Hgb Hct RDW Plt Count Lymph % (Auto) [place] % (Auto) [place] # (Auto) Seg Neutrophils % Seg Neutrophils # PT INR Heparin Anti-Xa Level VBG pH Sodium 135 L Potassium 6.6 H* D Chloride Carbon Dioxide 17 L BUN 30 H Creatinine 1.3 H Glucose 171 H POC Glucose 118 H Hemoglobin A1c Calcium Phosphorus Ferritin AST ALT Total Creatine Kinase CK-MB (CK-2) Troponin T 0.033 H D Triglycerides 03/31/22 03/31/22 03/31/22 03:05 03:05 08:21 WBC 14.0 H Hgb 14.8 H Hct 44.7 H RDW Plt Count 71 L Lymph % (Auto) 13.2 L [place] % (Auto) [place] # (Auto) Seg Neutrophils % 80.5 H Seg Neutrophils # 11.2 H PT INR Heparin Anti-Xa Level VBG pH Sodium Potassium 5.6 H Chloride Carbon Dioxide 18 L BUN 30 H Creatinine Glucose 208 H POC Glucose 206 H Hemoglobin A1c Calcium Phosphorus Ferritin AST ALT Total Creatine Kinase CK-MB (CK-2) Troponin T Triglycerides 03/31/22 03/31/22 03/31/22 09:43 12:43 15:15 WBC Hgb Hct RDW Plt Count Lymph % (Auto) [place] % (Auto) [place] # (Auto) Seg Neutrophils % Seg Neutrophils # PT INR Heparin Anti-Xa Level VBG pH Sodium 136 L Potassium Chloride Carbon Dioxide 17 L 20 L BUN 28 H 22 H Creatinine Glucose 221 H 247 H POC Glucose 225 H Hemoglobin A1c Calcium Phosphorus Ferritin AST ALT Total Creatine Kinase CK-MB (CK-2) Troponin T Triglycerides 03/31/22 03/31/22 03/31/22 15:15 15:15 15:53 WBC Hgb Hct RDW 12.6 L Plt Count 63 L Lymph % (Auto) [place] % (Auto) [place] # (Auto) Seg Neutrophils % 78.2 H Seg Neutrophils # 8.4 H PT 17.8 H INR 1.27 H Heparin Anti-Xa Level VBG pH Sodium Potassium Chloride Carbon Dioxide BUN Creatinine Glucose POC Glucose 241 H Hemoglobin A1c Calcium Phosphorus Ferritin AST ALT Total Creatine Kinase CK-MB (CK-2) Troponin T Triglycerides 03/31/22 03/31/22 03/31/22 19:32 19:32 20:59 WBC 12.0 H Hgb Hct RDW 12.8 L Plt Count 67 L Lymph % (Auto) [place] % (Auto) 7.7 H [place] # (Auto) 0.9 H Seg Neutrophils % 72.0 H Seg Neutrophils # 8.7 H PT INR Heparin Anti-Xa Level 0.77 H VBG pH Sodium Potassium Chloride Carbon Dioxide BUN Creatinine Glucose POC Glucose 107 H Hemoglobin A1c Calcium Phosphorus Ferritin AST ALT Total Creatine Kinase CK-MB (CK-2) Troponin T Triglycerides 03/31/22 03/31/22 03/31/22 21:49 Unknown Unknown WBC Hgb Hct RDW Plt Count Lymph % (Auto) [place] % (Auto) [place] # (Auto) Seg Neutrophils % Seg Neutrophils # PT INR Heparin Anti-Xa Level VBG pH Sodium 133 L Potassium Chloride Carbon Dioxide 14 L BUN 21 H Creatinine Glucose 210 H POC Glucose 121 H Hemoglobin A1c Calcium Phosphorus Ferritin 453.4 H AST ALT Total Creatine Kinase CK-MB (CK-2) Troponin T Triglycerides 04/01/22 04/01/22 04/01/22 00:46 01:14 01:14 WBC 11.4 H Hgb Hct RDW 13.0 L Plt Count 57 L Lymph % (Auto) [place] % (Auto) 8.1 H [place] # (Auto) 0.9 H Seg Neutrophils % 70.2 H Seg Neutrophils # 8.0 H PT INR Heparin Anti-Xa Level VBG pH Sodium 131 L Potassium 3.3 L Chloride Carbon Dioxide 19 L BUN Creatinine Glucose 158 H POC Glucose 173 H Hemoglobin A1c Calcium 8.2 L Phosphorus Ferritin AST ALT Total Creatine Kinase CK-MB (CK-2) Troponin T Triglycerides 04/01/22 04/01/22 04/01/22 01:14 03:10 05:31 WBC Hgb Hct RDW Plt Count Lymph % (Auto) [place] % (Auto) [place] # (Auto) Seg Neutrophils % Seg Neutrophils # PT INR Heparin Anti-Xa Level 0.15 L VBG pH Sodium 135 L Potassium 3.5 L Chloride Carbon Dioxide 19 L BUN Creatinine Glucose 142 H POC Glucose 113 H Hemoglobin A1c Calcium 7.9 L Phosphorus Ferritin AST ALT Total Creatine Kinase CK-MB (CK-2) Troponin T Triglycerides 04/01/22 04/01/22 04/01/22 05:31 05:31 06:20 WBC Hgb Hct RDW 12.8 L Plt Count 55 L Lymph % (Auto) [place] % (Auto) 9.7 H [place] # (Auto) 1.0 H Seg Neutrophils % Seg Neutrophils # PT INR Heparin Anti-Xa Level 0.15 L VBG pH Sodium Potassium Chloride Carbon Dioxide BUN Creatinine Glucose POC Glucose 154 H Hemoglobin A1c Calcium Phosphorus Ferritin AST ALT Total Creatine Kinase CK-MB (CK-2) Troponin T Triglycerides 04/01/22 04/01/22 04/01/22 09:31 09:37 10:38 WBC Hgb Hct RDW Plt Count Lymph % (Auto) [place] % (Auto) [place] # (Auto) Seg Neutrophils % Seg Neutrophils # PT INR Heparin Anti-Xa Level VBG pH Sodium 136 L Potassium 3.1 L Chloride Carbon Dioxide 20 L BUN Creatinine Glucose 104 H POC Glucose 115 H 117 H Hemoglobin A1c Calcium 7.5 L Phosphorus Ferritin AST ALT Total Creatine Kinase CK-MB (CK-2) Troponin T Triglycerides 04/01/22 04/01/22 04/01/22 11:43 15:46 16:04 WBC Hgb Hct RDW Plt Count Lymph % (Auto) [place] % (Auto) [place] # (Auto) Seg Neutrophils % Seg Neutrophils # PT 19.3 H INR 1.44 H Heparin Anti-Xa Level VBG pH Sodium Potassium Chloride Carbon Dioxide BUN Creatinine Glucose POC Glucose 116 H 183 H Hemoglobin A1c Calcium Phosphorus Ferritin AST ALT Total Creatine Kinase CK-MB (CK-2) Troponin T Triglycerides 04/01/22 04/02/22 04/02/22 16:04 04:15 04:15 WBC Hgb Hct RDW 12.5 L Plt Count 69 L Lymph % (Auto) [place] % (Auto) [place] # (Auto) Seg Neutrophils % Seg Neutrophils # PT INR Heparin Anti-Xa Level VBG pH Sodium 135 L Potassium Chloride Carbon Dioxide 20 L BUN Creatinine Glucose 198 H 111 H POC Glucose Hemoglobin A1c Calcium 8.0 L 8.2 L Phosphorus Ferritin AST ALT Total Creatine Kinase CK-MB (CK-2) Troponin T Triglycerides 04/02/22 04/02/22 04/02/22 07:38 11:28 16:28 WBC Hgb Hct RDW Plt Count Lymph % (Auto) [place] % (Auto) [place] # (Auto) Seg Neutrophils % Seg Neutrophils # PT INR Heparin Anti-Xa Level VBG pH Sodium Potassium Chloride Carbon Dioxide BUN Creatinine Glucose POC Glucose 106 H 158 H 141 H Hemoglobin A1c Calcium Phosphorus Ferritin AST ALT Total Creatine Kinase CK-MB (CK-2) Troponin T Triglycerides 04/02/22 04/03/22 04/03/22 20:23 05:48 08:00 WBC Hgb Hct RDW 12.5 L Plt Count 88 L Lymph % (Auto) [place] % (Auto) [place] # (Auto) Seg Neutrophils % Seg Neutrophils # PT INR Heparin Anti-Xa Level VBG pH Sodium Potassium Chloride Carbon Dioxide BUN Creatinine Glucose POC Glucose 176 H 124 H Hemoglobin A1c Calcium Phosphorus Ferritin AST ALT Total Creatine Kinase CK-MB (CK-2) Troponin T Triglycerides Allied health notes reviewed: nursing
[2022-04-03] MEDS: INSULIN LISPRO 100 UNIT/ML SUB-Q SCH ×4 (09:24→22:38)
[2022-04-03] MEDS: ALPRAZolam 0.25 MG TAB PO PRN (09:40)
[2022-04-03] MEDS: APIXABAN 5 MG TAB PO SCH ×2 (09:40→22:38)
--- NOTE | 2022-04-03 09:45 | Hem/Onc Progress Note ---
Subjective Date of service: 04/03/22 Interval history: Heme Progress Note Seen via amplify CPT 42666 Dx PE 46yo obese AA female with complaints of shortness of breath and chest tightness. Found to have a blood glucose greater than 500 --> started on insulin drip Echocardiogram which demonstrated evidence of a dilated right ventricle with the suggestion of thrombus within the right atrium CTA of the chest revealed large submassive bilateral pulmonary emboli S/p EKOS thrombolysis on 03/31/22 Started on Argatroban gtt --> transitioned to Eliquis Hematology following for submassive PE and low platelets Abd/Pel CT c/w uterine fibroids. Overall negative for malignancy. Chest CTA 04/03: persistent bilateral PE Patient examined at bedside, in no acute distress noted. Denies previous clotting history. Denies family history of sickle cell. Reports being previously healthy with no medical history prior to this ad mission. DATA REVIEWED BELOW IMP: Clotting tendency, submassive bilateral PE with RV strain, s/p thrombolysis --Pending antiphospholipid testing Low platelets likely related to liver dysfunction -- HIT results pending DKA, new diagnosis diabetes, metabolic acidosis Morbid obesity Uterine fibroids PLAN: Monitor CBC Continue Eliquis plan, discharge on Eliquis 5mg BID Monitor for heavy menstrual bleeding associated to FDAC and uterine fibroids Recommend outpatient hematology, gynecology, cardiology, and GI follow up for colonoscopy/endoscopy Follow hgEP, cardiolipin ab, pf4 ab Laboratory Last Values WBC 7.3 K/mm3 (4.5-11.0) 04/03/22 05:48 Hgb 13.1 gm/dl (10.1-14.3) 04/03/22 05:48 Hct 38.2 % (30.3-42.9) 04/03/22 05:48 MCV 94 fl (79-97) 04/03/22 05:48 Plt Count 88 K/mm3 (140-440) L 04/03/22 05:48 [place] % (Auto) 9.7 % (0.0-7.3) H 04/01/22 05:31 [place] # (Auto) 1.0 K/mm3 (0.0-0.8) H 04/01/22 05:31 PT 19.3 Sec. (12.2-14.9) H 04/01/22 16:04 INR 1.44 (0.87-1.13) H 04/01/22 16:04 APTT 32.3 Sec. (24.2-36.6) 04/01/22 16:04 Fibrinogen 330 mg/dl (211-480) 04/01/22 05:31 Heparin Anti-Xa Level 0.15 U.I./ml (0.3-0.7) L 04/01/22 05:31 Creatinine 0.7 mg/dL (0.6-1.2) 04/02/22 04:15 Iron 40 ug/dL (37-170) 03/31/22 Unknown TIBC 368 mcg/dL (250-450) 03/31/22 Unknown Ferritin 453.4 ng/mL (10.0-200.0) H 03/31/22 Unknown Total Bilirubin 0.50 mg/dL (0.1-1.2) 03/29/22 15:49 AST 217 units/L (5-40) H 03/29/22 15:49 ALT 206 units/L (7-56) H 03/29/22 15:49 Alkaline Phosphatase 79 units/L (35-129) 03/29/22 15:49 Total Creatine Kinase 146 units/L (30-135) H 03/29/22 15:49 CK-MB (CK-2) 5.1 ng/mL (0.0-4.0) H 03/29/22 15:49 CK-MB (CK-2) Rel Index 3.4 (0-4) 03/29/22 15:49 Objective - Constitutional Vitals: Last Vital Signs Temp 98.9 F 04/02/22 22:38 Pulse 102 H 04/02/22 22:38 Resp 20 04/02/22 22:38 BP 133/79 04/02/22 22:38 Pulse Ox 98 04/02/22 22:38 - Labs Lab Results: Laboratory Results - last 24 hr 04/02/22 04/02/22 04/02/22 11:28 16:28 20:23 WBC RBC Hgb Hct MCV MCH MCHC RDW Plt Count POC Glucose 158 H 141 H 176 H 04/03/22 04/03/22 05:48 08:00 WBC 7.3 RBC 4.07 Hgb 13.1 Hct 38.2 MCV 94 MCH 32 MCHC 34 RDW 12.5 L Plt Count 88 L POC Glucose 124 H Medications & Allergies - Medications Allergies/Adverse Reactions: Allergies No Known Allergies Allergy (Unverified 03/29/22 14:51) Home Medications: Home Medications Medication Instructions Recorded Confirmed Last Taken Type No Known Home Medications [No 03/31/22 03/31/22 Unknown History Reported Home Medications] Active Medications: Generic Name Dose Route Start Last Admin Trade Name Freq PRN Reason Stop Dose Admin Acetaminophen 650 mg 03/31/22 15:04 04/01/22 21:40 Acetaminophen 325 Mg Tab PO 650 mg Q6H PRN Administration Pain, Mild (1-3) Alprazolam 0.25 mg 03/30/22 13:00 04/03/22 09:40 Alprazolam 0.25 Mg Tab PO 0.25 mg Q8H PRN Administration Anxiety Apixaban 10 mg 04/01/22 14:30 04/03/22 09:40 Apixaban 5 Mg Tab PO 04/07/22 22:01 10 mg Q12HR J LUIS Administration Protocol Apixaban 5 mg 04/08/22 10:00 Apixaban 5 Mg Tab PO 10/05/22 09:59 Q12HR J LUIS Protocol Dextrose 50 ml 04/01/22 14:02 Dextrose 50% In Water (25gm) 50 Ml Syringe IV Q30MIN PRN Hypoglycemia Protocol Hydralazine HCl 10 mg 04/02/22 13:54 04/02/22 19:48 Hydralazine 20 Mg/1 Ml Inj IV 10 mg Q4HR PRN Administration Blood Pressure Potassium Chloride 10 meq in 100 mls @ 100 mls/hr 03/31/22 09:28 Kcl 10meq/100ml IV Q1H PRN LOW Potassium Levels Potassium Chloride 10 meq in 100 mls @ 100 mls/hr 03/31/22 09:28 Kcl 10meq/100ml IV Q1H PRN LOW Potassium Levels Ibuprofen 600 mg 03/29/22 17:42 Ibuprofen 600 Mg Tab PO Q6H PRN Pain, Mild (1-3) Insulin Glargine 10 units 04/01/22 14:30 04/02/22 09:33 Insulin Glargine 100 Units/Ml SUB-Q 10 units QAMDIAB J LUIS Administration Insulin Human Lispro 0 unit 04/01/22 16:30 04/03/22 09:24 Insulin Lispro 100 Unit/Ml SUB-Q Not Given ACHS [facility] Protocol Morphine Sulfate 2 mg 03/29/22 17:42 04/02/22 19:48 Morphine 2 Mg/1 Ml Inj IV 2 mg Q4H PRN Administration Pain, Moderate (4-6) Ondansetron HCl 4 mg 03/31/22 14:18 03/31/22 14:25 Ondansetron 4 Mg/2 Ml Inj IV 4 mg Q8H PRN Administration Nausea And Vomiting Sodium Chloride 10 ml 03/29/22 22:00 04/02/22 22:40 Sodium Chloride 0.9% 10 Ml Flush Syringe IV 10 ml BID J LUIS Administration Sodium Chloride 10 ml 03/29/22 17:42 04/01/22 02:32 Sodium Chloride 0.9% 10 Ml Flush Syringe IV 10 ml PRN PRN Administration LINE FLUSH
[2022-04-03] MEDS: INSULIN GLARGINE 100 UNITS/ML SUB-Q SCH (09:56)
[2022-04-03] MEDS: hydrALAZINE 20 MG/1 ML INJ IV PRN (09:57)
--- NOTE | 2022-04-03 10:03 | Progress Note ---
Assessment and Plan Patient is a 46-year-old female with a past medical history of anxiety who presented to the ED yesterday with a complaint of fatigue and shortness of breath x3 days DKA Bilateral PE NSTEMI suspect type II Metabolic acidosis Hyponatremia Hyperkalemia Uynbhrbvqnqwekzl-[id number]-jic following Obesity Echo 03/30/2022- EF50 to 55%. Mild diastolic dysfunction is present impaired relaxation pattern. Right ventricle is mildly dilated. Septum is flattened in diastole consistent with RV volume overload. Right ventricular systolic function is normal. Mobile echo bright density present in right atrium. No aortic regurgitation. No mitral valve regurgitation. Trace tricuspid regurgitation. Trace pulmonic regurgitation Echo limited study 04/03/2022-EF 55 to 60%. Right ventricle systolic function is normal. Echodensity in right atrium is similar in size from 03/31/2022. No aortic valve stenosis. Mitral valve is normal in structure Plan: Patient currently anticoagulated on Eliquis. Will defer management to heme-onc Discussed importance of follow-up appointments and medication compliance with patient who verbalized understanding and acknowledgment Cardiac status otherwise stable Plan of care discussed with patient who verbalized understanding and acknowledgment Patient may follow-up with Dr. Lynn, [facility] heart specialists, on 05/19/2022 at 2 PM in our [place] location. Phone #[phone] Patient in conjunction with Dr. Lynn who agrees with this plan of care - Patient Problems (1) DKA (diabetic ketoacidosis) Current Visit: Yes Status: Acute (2) Diabetes mellitus, new onset Current Visit: Yes Status: Acute (3) Thrombocytopenia Current Visit: Yes Status: Acute (4) Hyperkalemia Current Visit: Yes Status: Acute (5) Hyponatremia Current Visit: Yes Status: Acute (6) Metabolic acidosis Current Visit: Yes Status: Acute (7) Elevated troponin Current Visit: Yes Status: Acute Subjective Date of service: 04/03/22 Principal diagnosis: Bilateral PE Interval history: Patient resting in bed in no acute distress. Sinus 90s on monitor with no event Objective Vital Signs Temp Pulse Pulse Resp BP Pulse Ox 04/03/22 09:38 99 H 161/105 97 04/02/22 22:38 98.9 F 102 H 20 133/79 98 04/02/22 22:00 98 04/02/22 19:48 98 H 170/110 04/02/22 19:31 97.6 F 95 H 20 170/116 98 04/02/22 15:51 101 H 22 137/100 94 04/02/22 15:41 90 32 H 137/100 94 04/02/22 15:31 87 28 H 146/104 97 04/02/22 15:21 90 32 H 146/104 94 04/02/22 15:11 92 H 32 H 146/104 95 04/02/22 15:00 91 H 30 H 139/103 04/02/22 14:51 91 H 19 147/103 97 04/02/22 14:41 91 H 35 H 147/103 94 04/02/22 14:31 90 31 H 147/103 95 04/02/22 14:21 91 H 32 H 147/103 95 04/02/22 14:11 91 H 33 H 147/103 96 04/02/22 14:00 105 H 22 147/103 99 04/02/22 13:51 98 H 21 158/107 98 04/02/22 13:41 97 H 24 163/116 97 04/02/22 13:31 95 H 17 163/116 99 04/02/22 13:21 93 H 15 169/124 99 04/02/22 13:10 96 H 31 H 164/122 100 04/02/22 13:01 96 H 16 159/117 98 04/02/22 12:51 95 H 20 153/96 97 04/02/22 12:41 97 H 12 153/96 98 04/02/22 12:31 98 H 18 153/96 98 04/02/22 12:21 97 H 27 H 153/96 96 04/02/22 12:11 101 H 25 H 153/96 98 04/02/22 12:01 96 H 30 H 153/96 97 04/02/22 11:51 96 H 27 H 125/87 99 04/02/22 11:49 98.4 F 04/02/22 11:41 97 H 18 125/87 98 04/02/22 11:36 95 H 95 H 22 98 04/02/22 11:31 94 H 25 H 125/87 98 04/02/22 11:21 97 H 25 H 125/87 98 04/02/22 11:11 104 H 26 H 125/87 98 04/02/22 11:09 95 H 19 125/87 97 04/02/22 10:21 86 21 125/87 92 04/02/22 10:11 90 26 H 125/87 96 - Physical Examination General: No Apparent Distress HEENT: Positive: EOMI, Normocephaly Neck: Positive: neck supple, trachea midline Cardiac: Positive: Reg Rate and Rhythm Lungs: Positive: Normal Breath Sounds Neuro: Positive: Grossly Intact Abdomen: Positive: Soft. Negative: Tender Skin: Negative: Rash Musculoskeletal: No Pain Extremities: Present: upper extr. pulses, warm. Absent: edema - Labs and Meds CBC 04/03/22 Range/Units 05:48 WBC 7.3 (4.5-11.0) K/mm3 RBC 4.07 (3.65-5.03) M/mm3 Hgb 13.1 (10.1-14.3) gm/dl Hct 38.2 (30.3-42.9) % Plt Count 88 L (140-440) K/mm3 - Imaging and Cardiology EKG: report reviewed, image reviewed Echo: report reviewed - Telemetry EKG Rhythm: Sinus Rhythm - EKG Sinus rhythms and dysrhythmias: sinus rhythm, sinus tachycardia Repolarization changes or abnormalities: nonspecific abnormality, ST segment, and/or T wave Myocardial infarction: inferior [place] (old age inde - Allied health notes Allied health notes reviewed: nursing
--- NOTE | 2022-04-03 13:28 | Cat Scan Report ---
CTA CHEST WITH CONTRAST INDICATION / CLINICAL INFORMATION: Shortness of breath. TECHNIQUE: Axial CT images were obtained through the chest after injection of IV contrast. 3 plane AL P and/or 3D reconstructions were produced. All CT scans at this location are performed using CT dose reduction for ALARA by means of automated exposure control. COMPARISON: CTA chest 03/31/2022 FINDINGS: PULMONARY EMBOLUS: Positive. Most proximal level of embolus is Left and Right Lobar Pulmonary Artery. Extension into all lobes is again noted, extension into the right middle lobe has significantly impr christofer/decreased. THORACIC AORTA: No significant abnormality. HEART: Previously seen probable right ventricular strain has improved. CORONARY ARTERY CALCIFICATION: Absent -- None. MEDIASTINUM / CONOR: No significant abnormality. PLEURA: There are small bilateral pleural effusions are noted. No pneumothorax. LUNGS: There is compressive atelectasis within the dependent lung bases. Stable small subcentimeter p erifissural noted in the inferior left lung on axial image 54. ADDITIONAL FINDINGS: None. UPPER ABDOMEN: No acute findings. SKELETAL STRUCTURES: No significant osseous abnormality. IMPRESSION: 1. Persistent bilateral PTE, overall clot burden is slightly improved when compared with the exam fro m 3 days ago. Previously seen apparent right ventricular strain also appears improved. 2. Persistent very small effusions with compressive atelectasis in the lung bases. Signer Name: Kris Oviedo MD Signed: 04/03/2022 1:23 PM Workstation Name: [id number]
--- NOTE | 2022-04-03 14:26 | Progress Note ---
Assessment and Plan 46-year-old female with submassive pulmonary embolism status postthrombolytic therapy with repeat CT scan demonstrating moderate amount of residual pulmonary embolism. This was performed for abnormal echocardiogram. Ordered venous ultrasounds of the lower extremities. Will have nurse walk patient without oxygen and check O2 sat before and after walking patient. Depending on these results, discussed possibility of pulmonary artery t hrombectomy. Patient and family understands and is aware. Subjective Date of service: 04/03/22 Principal diagnosis: Bilateral PE Interval history: Doing better. Breathing on room air. Had abnormal echo demonstrating debris in the right heart and CT angiogram was performed. Thrombus noted in the pulmonary arteries. The amount of thrombus has improved since prior CT scan. Unclear if there was interval embolization from lower extremities. Venous ultrasound ordered. Discussed with nurse will walk patient and check oxygen before and after walking. Objective - Constitutional Vitals: Vital Signs - 12hr 04/03/22 09:38 Pulse Rate 99 H Blood Pressure 161/105 O2 Sat by Pulse 97 Oximetry General appearance: Present: no acute distress - EENT Eyes: EOM intact ENT: hearing intact - Neck Neck: supple - Respiratory Respiratory effort: normal Extremities: normal temperature, normal color Extremity abnormal: edema (Left lower extremity) - Gastrointestinal General gastrointestinal: Present: soft, non-tender - Psychiatric Psychiatric: appropriate mood/affect, cooperative - Labs CBC & Chem 7: 04/03/22 05:48 04/02/22 04:15 Labs: Abnormal lab results 04/02/22 04/02/22 04/03/22 Range/Units 16:28 20:23 05:48 RDW 12.5 L (13.2-15.2) % Plt Count 88 L (140-440) K/mm3 POC Glucose 141 H 176 H (70-105) mg/dL 04/03/22 04/03/22 Range/Units 08:00 12:03 RDW (13.2-15.2) % Plt Count (140-440) K/mm3 POC Glucose 124 H 156 H (70-105) mg/dL Medications & Allergies - Medications Allergies/Adverse Reactions: Allergies No Known Allergies Allergy (Unverified 03/29/22 14:51) Home Medications: Home Medications Medication Instructions Recorded Confirmed Last Taken Type No Known Home Medications [No 03/31/22 03/31/22 Unknown History Reported Home Medications] Active Medications: Generic Name Dose Route Start Last Admin Trade Name Freq PRN Reason Stop Dose Admin Acetaminophen 650 mg 03/31/22 15:04 04/01/22 21:40 Acetaminophen 325 Mg Tab PO 650 mg Q6H PRN Administration Pain, Mild (1-3) Alprazolam 0.25 mg 03/30/22 13:00 04/03/22 09:40 Alprazolam 0.25 Mg Tab PO 0.25 mg Q8H PRN Administration Anxiety Apixaban 10 mg 04/01/22 14:30 04/03/22 09:40 Apixaban 5 Mg Tab PO 04/07/22 22:01 10 mg Q12HR J LUIS Administration Protocol Apixaban 5 mg 04/08/22 10:00 Apixaban 5 Mg Tab PO 10/05/22 09:59 Q12HR [facility] Protocol Dextrose 50 ml 04/01/22 14:02 Dextrose 50% In Water (25gm) 50 Ml Syringe IV Q30MIN PRN Hypoglycemia Protocol Hydralazine HCl 10 mg 04/02/22 13:54 04/03/22 09:57 Hydralazine 20 Mg/1 Ml Inj IV 10 mg Q4HR PRN Administration Blood Pressure Potassium Chloride 10 meq in 100 mls @ 100 mls/hr 03/31/22 09:28 Kcl 10meq/100ml IV Q1H PRN LOW Potassium Levels Potassium Chloride 10 meq in 100 mls @ 100 mls/hr 03/31/22 09:28 Kcl 10meq/100ml IV Q1H PRN LOW Potassium Levels Ibuprofen 600 mg 03/29/22 17:42 Ibuprofen 600 Mg Tab PO Q6H PRN Pain, Mild (1-3) Insulin Glargine 10 units 04/01/22 14:30 04/03/22 09:56 Insulin Glargine 100 Units/Ml SUB-Q 10 units QAMDIAB J LUIS Administration Insulin Human Lispro 0 unit 04/01/22 16:30 04/03/22 09:24 Insulin Lispro 100 Unit/Ml SUB-Q Not Given [facility] Protocol Morphine Sulfate 2 mg 03/29/22 17:42 04/02/22 19:48 Morphine 2 Mg/1 Ml Inj IV 2 mg Q4H PRN Administration Pain, Moderate (4-6) Ondansetron HCl 4 mg 03/31/22 14:18 03/31/22 14:25 Ondansetron 4 Mg/2 Ml Inj IV 4 mg Q8H PRN Administration Nausea And Vomiting Sodium Chloride 10 ml 03/29/22 22:00 04/02/22 22:40 Sodium Chloride 0.9% 10 Ml Flush Syringe IV 10 ml BID J LUIS Administration Sodium Chloride 10 ml 03/29/22 17:42 04/01/22 02:32 Sodium Chloride 0.9% 10 Ml Flush Syringe IV 10 ml PRN PRN Administration LINE FLUSH HEART Score - HEART Score Troponin: Troponin T 0.033 ng/mL (0.00-0.029) H D 03/30/22 22:19
[2022-04-03] MEDS: LISINOPRIL 20 MG TAB PO SCH (16:59)
--- NOTE | 2022-04-03 17:00 | Vascular Lab Report ---
DUPLEX DOPPLER LOWER EXTREMITY VEINS, BILATERAL INDICATION / CLINICAL INFORMATION: swelling, pe. TECHNIQUE: Duplex doppler imaging was performed through the veins of both lower extremities using venous emiliana keara and other maneuvers. COMPARISON: None available. FINDINGS: RIGHT COMMON FEMORAL VEIN: Negative. RIGHT FEMORAL VEIN: Negative. RIGHT POPLITEAL VEIN: Negative. RIGHT CALF VEINS: Negative. LEFT COMMON FEMORAL VEIN: Negative. LEFT FEMORAL VEIN: Acute thrombus. LEFT POPLITEAL VEIN: Acute thrombus. LEFT CALF VEINS: Acute thrombus. ADDITIONAL FINDINGS: None. IMPRESSION: 1. Acute DVT from the left proximal superficial femoral vein to the distal peroneal veins. Signer Name: Vinicio Bailey MD Signed: 04/03/2022 4:55 PM Workstation Name: [id number]
[2022-04-03] MEDS: MORPHINE 2 MG/1 ML INJ IV PRN (20:13)
[2022-04-04 07:15] LABS: Hematocrit 40.2 % (30.3-42.9); Hemoglobin 13.7 gm/dl (10.1-14.3); Mean Corpuscular HGB Conc 34 % (30-34); Mean Corpuscular Volume 93 fl (79-97); Platelet Count 110 K/mm3 (140-440); Red Blood Count 4.32 M/mm3 (3.65-5.03); Red Cell Distribution Width 12.5 % (13.2-15.2)
[2022-04-04] MEDS: ALPRAZolam 0.25 MG TAB PO PRN (09:01)
[2022-04-04] MEDS: APIXABAN 5 MG TAB PO SCH (09:02)
[2022-04-04] MEDS: INSULIN LISPRO 100 UNIT/ML SUB-Q SCH ×2 (09:10→12:35)
--- NOTE | 2022-04-04 09:30 | Discharge Summary ---
Providers - Providers Date of Admission: 03/29/22 17:44 Date of discharge: 04/04/22 Attending physician: TACOS CORCORAN 03/29/22 17:20 Consult to Physician [CONS] Urgent Comment: Consulting Provider: BRICE HOOK Physician Instructions: Reason For Exam: dka 03/30/22 11:51 Consult to Physician [CONS] Routine Comment: Consulting Provider: JOSR LYNN Physician Instructions: Reason For Exam: typical chest pain, elev troponin 03/31/22 13:23 Consult to Physician [CONS] Routine Comment: Consulting Provider: HOANG RAMIREZ Physician Instructions: Reason For Exam: pulmonary embolism, RV strain 03/31/22 13:30 Consult to Physician [CONS] Routine Comment: Consulting Provider: MALCOLM GARNETT Physician Instructions: Reason For Exam: BL PE, unprovoked. thrombocytopenia 04/02/22 13:53 Occupational Therapy Evaluate and Treat [CONS] Routine Comment: Reason For Exam: weakness Physical Therapy Evaluation and Treat [CONS] Routine Comment: Reason For Exam: weakness Primary care physician: [employer] SUPER[employer] Hospitalization Reason for admission: SOB Condition: Stable Hospital course: This is a 46-year-old -[place] female with anxiety who presented to the emergency department on 03/29 with a 10 to 14-day history of weakness and shortness of breath with some nausea via EMS. Blood glucose Accu-Chek was very high above 500. Work-up in the emergency department revealed elevated blood glucose with increased anion gap and patient was admitted to the hospitalist service with new diagnosis of diabetes mellitus and for DKA to ICU for IV insulin drip and IV fluids with consult to cardiology and CCM. Hospital Course: 03/31: AG remains open: 21. Continue insulin gtt/IVF per dka protocol. K noted to be elevated, fluids modified to D5w/1/2NS. D/w Cardiology, right atrial mass visualized on TTE. Will need KRISTIE on sunday. NM stress canceled. Vascular surgery and heme-onc consulted. 04/01: S/p thrombectomy with EKOS catheter in place on heparin drip. To be started on argatroban drip per heme-onc. Patient remained insulin drip for this afternoon after removal of EKOS catheter she was transitioned to SSI, CC diet and long-acting insulin. Potassium repleted. Patient states she hasnt had a mammogram, colonoscopy, no personal history of cancer, no use of control. Patient states her mother does have colon cancer. 04/02: Patient remains off insulin gtt, hemodynamically stable and on RA. Changed to PO eliquis. Abd/pelvis imaging pending. Transfer to floor. ABD US completed which shows fibroids. 04/03: Asymptomatic on encounter. BP elevated, will initiate lisinopril. D/w Dr. Lynn, CTA chest ordered as persisting thrombus visualized on AM TTE. Will follow for IR plans pending CTA chest result. Hospital course by system and disease process: Neuro: h/o anxiety -Reorientation as needed -Verbal de-escalation as needed -PRN ativan -Maintain sleep-wake cycle Cardio: Type II NE -Presented with chest pain -Cardiology consulted, appreciate recommendations -Blood pressure monitoring per protocol -Echo 03/30/2022: EF 50 to 55%. Septum is flattened in diastole consistent with RV volume overload. Right ventricular systolic function is normal. Mobile echo bright density present in right atrium. -PRn hydral Pulmonary: Submassive pulmonary embolism -CTA shows large submassive BL PE, RV strain visible. -CCM and vascular surgery consulted, appreciate recommendations -S/p EKOS on 03/31/2022 -PO eliquis -Pulmonary hygiene -Supplemental oxygen as needed -SPO2 monitoring GI: Morbid obesity -CC diet -24 hours -85 ml -PPI -BR: Colace -Encourage dietary and lifestyle modifications upon discharge -Will need outpatient EGD as she does endorse 1st degree family with colon CA : NAD -Monitor intake and output -Renally dose medications -Avoid nephrotoxic medications -Trend BMP Endocrine: s/p DKA, DM -Presented with anion gap of 19, blood glucose 574, ketonuria and VBG with a pH of 7.2 -Transition to SSI and long-acting insulin -Hemoglobin A1c 10.1 -CC diet -Avoid hypoglycemia ID: NAD -Monitor WBC and temperature curve Heme: Thrombocytopenia, unprovoked pulmonary embolism -Hematology/oncology consulted, appreciate recommendations -stopped Argatroban drip -HIT panel pending -Cardiolipin antibody screen, hemoglobinopathy evaluation, Augustine 2 mutation pending -Trend CBC -Transfuse hemoglobin less than 7 -CT abdomen/pelvis shows small bilateral pleural effusions (right greater than left), focal fat infiltration of the liver, small amount of pericholecystic fluid, small amount of free fluid in the dependent portion of the pelvis, few hypodensities noted in the uterus characteristic of fibroids, no suspicious mass lesions are seen, no adenopathy seen -Pelvis US shows fibroids -recommend outpatient follow up with [employer] -Will need colonoscopy (outpatient) as mother has colon cancer Disposition: HOME / SELF CARE / HOMELESS Final Discharge Diagnosis (Prints w/discharge instructions): Submassive pulmonary embolism, type II NE, morbid obesity, history of anxiety disorder, s/p DKA, diabetes mellitus type 2, thrombocytopenia, uterine fibroid Core Measure Documentation - Palliative Care Palliative Care/ Comfort Measures: Not Applicable - Core Measures Any of the following diagnoses?: none Exam - Constitutional Vitals: Temp Pulse Resp BP Pulse Ox 98.8 F 96 H 22 125/78 95 04/04/22 04:42 04/04/22 04:42 04/03/22 22:51 04/04/22 04:42 04/04/22 04:42 General appearance: Present: no acute distress, well-nourished - EENT Eyes: Present: PERRL ENT: hearing intact, clear oral mucosa - Neck Neck: Present: supple, normal ROM - Respiratory Respiratory effort: normal Respiratory: bilateral: CTA - Cardiovascular Heart Sounds: Present: S1 & S2. Absent: rub, click - Extremities Extremities: pulses symmetrical, No edema Peripheral Pulses: within normal limits - Abdominal General gastrointestinal: Present: soft, non-tender, non-distended, normal bowel sounds Female genitourinary: Present: normal - Integumentary Integumentary: Present: clear, warm, dry - Musculoskeletal Musculoskeletal: gait normal, strength equal bilaterally - Psychiatric Psychiatric: appropriate mood/affect, intact judgment & insight - Neurologic Neurologic: CNII-XII intact, moves all extremities Plan Activity: advance as tolerated Weight Bearing Status: Weight Bear as Tolerated Diet: regular Follow up with: PRIMARY CARE, [Primary Care Provider] - 7 Days Prescriptions: Apixaban [Eliquis] 10 mg PO Q12HR #14 tablet Apixaban [Eliquis] 5 mg PO Q12HR 180 Days tablet Insulin Glargine [Lantus VIAL] 10 units SUB-Q QAMDIAB 30 Days units ALPRAZolam [Xanax TAB] 0.25 mg PO Q8H PRN #10 tablet PRN Reason: Anxiety lisinopriL [Zestril TAB] 20 mg PO QDAY #30 tablet
[2022-04-04] MEDS: LISINOPRIL 20 MG TAB PO SCH (10:30)
--- NOTE | 2022-04-04 10:40 | Progress Note ---
Assessment and Plan 03/31/22: Continue insulin drip until gap closes. 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 Likely hold on KRISTIE. Anticoagulation, [employer] to discuss with Heme if Argatroban is what is wanted post EKOS removal given low platelets. Can likely transition to long acting insulin once able to eat. FSBS ac and qhs. SSI. Will need age appropriate screening for malignancy as well as hypercoagulable work up as out patient if malignancy is not found. 04/02/22: follow up CT of abdomen pelvis results. Anticoagulation per heme, stable for transfer to floor. 04/03/22: continue anticoagulation. Follow up cards recs. 04/04/22: Agree with oral anticoagulation. Reviewed IR note. Given current stability, not sure she would be a candidate for thrombectomy although I understand this recommendation based on repeat CTA. usually takes about 2 weeks for clot to reabsorb. She can follow up either with us or heme. CT abdomen pelvis was unremarkable but patient does have a first degree family member with history of colon ca. Will need outpatient GI follow up since not seen in house. Hyper coag work up is needed NPO Continue insulin drip Needs repeat labs to assess anion Gap IVF's Subjective Date of service: 04/04/22 Principal diagnosis: Bilateral PE Interval history: Remains stable on room air. On eliquis now Objective Vital Signs - 12hr 04/03/22 04/04/22 04/04/22 22:51 04:42 09:38 Temperature 98.6 F 98.8 F Pulse Rate 94 H 96 H 76 Respiratory 22 Rate Blood Pressure 115/76 125/78 166/119 [Left] O2 Sat by Pulse 95 95 Oximetry CBC and BMP: 04/04/22 06:32 04/02/22 04:15 ABG, PT/INR, D-dimer: PT/INR, D-dimer PT 19.3 Sec. (12.2-14.9) H 04/01/22 16:04 INR 1.44 (0.87-1.13) H 04/01/22 16:04 Abnormal lab findings: Abnormal Labs 03/29/22 03/29/22 03/29/22 15:29 15:49 15:49 WBC Hgb 15.5 H Hct 46.1 H RDW 13.0 L Plt Count 95 L Lymph % (Auto) Drew % (Auto) Drew # (Auto) Seg Neutrophils % 73.3 H Seg Neutrophils # PT INR Heparin Anti-Xa Level VBG pH Sodium 133 L Potassium 5.2 H Chloride 95.0 L Carbon Dioxide 13 L BUN Creatinine 1.3 H Glucose 574 H* POC Glucose 466 H Hemoglobin A1c Calcium Phosphorus Ferritin AST 217 H ALT 206 H Total Creatine Kinase CK-MB (CK-2) Troponin T Triglycerides 03/29/22 03/29/22 03/29/22 15:49 15:49 15:49 WBC Hgb Hct RDW Plt Count Lymph % (Auto) Drew % (Auto) Drew # (Auto) Seg Neutrophils % Seg Neutrophils # PT 15.2 H INR Heparin Anti-Xa Level VBG pH 7.213 L Sodium Potassium Chloride Carbon Dioxide BUN Creatinine Glucose POC Glucose Hemoglobin A1c Calcium Phosphorus 6.80 H Ferritin AST ALT Total Creatine Kinase 146 H CK-MB (CK-2) 5.1 H Troponin T 0.167 H* Triglycerides 168 H 03/29/22 03/29/22 03/29/22 19:10 20:16 20:26 WBC Hgb Hct RDW Plt Count Lymph % (Auto) Drew % (Auto) Drew # (Auto) Seg Neutrophils % Seg Neutrophils # PT INR Heparin Anti-Xa Level VBG pH Sodium 135 L Potassium Chloride Carbon Dioxide 13 L BUN Creatinine Glucose 399 H POC Glucose 481 H 440 H Hemoglobin A1c Calcium Phosphorus Ferritin AST ALT Total Creatine Kinase CK-MB (CK-2) Troponin T Triglycerides 03/29/22 03/29/22 03/29/22 21:15 22:20 23:26 WBC Hgb Hct RDW Plt Count Lymph % (Auto) Drew % (Auto) Drew # (Auto) Seg Neutrophils % Seg Neutrophils # PT INR Heparin Anti-Xa Level VBG pH Sodium Potassium Chloride Carbon Dioxide BUN Creatinine Glucose POC Glucose 299 H 363 H 202 H Hemoglobin A1c Calcium Phosphorus Ferritin AST ALT Total Creatine Kinase CK-MB (CK-2) Troponin T Triglycerides 03/30/22 03/30/22 03/30/22 00:35 01:31 01:44 WBC Hgb Hct RDW Plt Count Lymph % (Auto) Drew % (Auto) Drew # (Auto) Seg Neutrophils % Seg Neutrophils # PT INR Heparin Anti-Xa Level VBG pH Sodium 136 L Potassium Chloride Carbon Dioxide 14 L BUN Creatinine Glucose 196 H POC Glucose 177 H 162 H Hemoglobin A1c Calcium Phosphorus Ferritin AST ALT Total Creatine Kinase CK-MB (CK-2) Troponin T Triglycerides 03/30/22 03/30/22 03/30/22 03:19 05:29 06:42 WBC Hgb Hct RDW Plt Count Lymph % (Auto) Drew % (Auto) Drew # (Auto) Seg Neutrophils % Seg Neutrophils # PT INR Heparin Anti-Xa Level VBG pH Sodium Potassium Chloride Carbon Dioxide BUN Creatinine Glucose POC Glucose 152 H 188 H 177 H Hemoglobin A1c Calcium Phosphorus Ferritin AST ALT Total Creatine Kinase CK-MB (CK-2) Troponin T Triglycerides 03/30/22 03/30/22 03/30/22 07:30 11:45 12:05 WBC Hgb Hct RDW Plt Count Lymph % (Auto) Drew % (Auto) Drew # (Auto) Seg Neutrophils % Seg Neutrophils # PT INR Heparin Anti-Xa Level VBG pH Sodium Potassium Chloride Carbon Dioxide BUN Creatinine Glucose POC Glucose 141 H Hemoglobin A1c 10.1 H Calcium Phosphorus Ferritin AST ALT Total Creatine Kinase CK-MB (CK-2) Troponin T 0.046 H D Triglycerides 03/30/22 03/30/22 03/30/22 19:11 22:19 22:19 WBC Hgb Hct RDW Plt Count Lymph % (Auto) Drew % (Auto) Drew # (Auto) Seg Neutrophils % Seg Neutrophils # PT INR Heparin Anti-Xa Level VBG pH Sodium 135 L Potassium 6.6 H* D Chloride Carbon Dioxide 17 L BUN 30 H Creatinine 1.3 H Glucose 171 H POC Glucose 118 H Hemoglobin A1c Calcium Phosphorus Ferritin AST ALT Total Creatine Kinase CK-MB (CK-2) Troponin T 0.033 H D Triglycerides 03/31/22 03/31/22 03/31/22 03:05 03:05 08:21 WBC 14.0 H Hgb 14.8 H Hct 44.7 H RDW Plt Count 71 L Lymph % (Auto) 13.2 L Drew % (Auto) Drew # (Auto) Seg Neutrophils % 80.5 H Seg Neutrophils # 11.2 H PT INR Heparin Anti-Xa Level VBG pH Sodium Potassium 5.6 H Chloride Carbon Dioxide 18 L BUN 30 H Creatinine Glucose 208 H POC Glucose 206 H Hemoglobin A1c Calcium Phosphorus Ferritin AST ALT Total Creatine Kinase CK-MB (CK-2) Troponin T Triglycerides 03/31/22 03/31/22 03/31/22 09:43 12:43 15:15 WBC Hgb Hct RDW Plt Count Lymph % (Auto) Drew % (Auto) Drew # (Auto) Seg Neutrophils % Seg Neutrophils # PT INR Heparin Anti-Xa Level VBG pH Sodium 136 L Potassium Chloride Carbon Dioxide 17 L 20 L BUN 28 H 22 H Creatinine Glucose 221 H 247 H POC Glucose 225 H Hemoglobin A1c Calcium Phosphorus Ferritin AST ALT Total Creatine Kinase CK-MB (CK-2) Troponin T Triglycerides 03/31/22 03/31/22 03/31/22 15:15 15:15 15:53 WBC Hgb Hct RDW 12.6 L Plt Count 63 L Lymph % (Auto) Drew % (Auto) Drew # (Auto) Seg Neutrophils % 78.2 H Seg Neutrophils # 8.4 H PT 17.8 H INR 1.27 H Heparin Anti-Xa Level VBG pH Sodium Potassium Chloride Carbon Dioxide BUN Creatinine Glucose POC Glucose 241 H Hemoglobin A1c Calcium Phosphorus Ferritin AST ALT Total Creatine Kinase CK-MB (CK-2) Troponin T Triglycerides 03/31/22 03/31/22 03/31/22 19:32 19:32 20:59 WBC 12.0 H Hgb Hct RDW 12.8 L Plt Count 67 L Lymph % (Auto) Drew % (Auto) 7.7 H Drew # (Auto) 0.9 H Seg Neutrophils % 72.0 H Seg Neutrophils # 8.7 H PT INR Heparin Anti-Xa Level 0.77 H VBG pH Sodium Potassium Chloride Carbon Dioxide BUN Creatinine Glucose POC Glucose 107 H Hemoglobin A1c Calcium Phosphorus Ferritin AST ALT Total Creatine Kinase CK-MB (CK-2) Troponin T Triglycerides 03/31/22 03/31/22 03/31/22 21:49 Unknown Unknown WBC Hgb Hct RDW Plt Count Lymph % (Auto) Drew % (Auto) Drew # (Auto) Seg Neutrophils % Seg Neutrophils # PT INR Heparin Anti-Xa Level VBG pH Sodium 133 L Potassium Chloride Carbon Dioxide 14 L BUN 21 H Creatinine Glucose 210 H POC Glucose 121 H Hemoglobin A1c Calcium Phosphorus Ferritin 453.4 H AST ALT Total Creatine Kinase CK-MB (CK-2) Troponin T Triglycerides 04/01/22 04/01/22 04/01/22 00:46 01:14 01:14 WBC 11.4 H Hgb Hct RDW 13.0 L Plt Count 57 L Lymph % (Auto) Drew % (Auto) 8.1 H Drew # (Auto) 0.9 H Seg Neutrophils % 70.2 H Seg Neutrophils # 8.0 H PT INR Heparin Anti-Xa Level VBG pH Sodium 131 L Potassium 3.3 L Chloride Carbon Dioxide 19 L BUN Creatinine Glucose 158 H POC Glucose 173 H Hemoglobin A1c Calcium 8.2 L Phosphorus Ferritin AST ALT Total Creatine Kinase CK-MB (CK-2) Troponin T Triglycerides 04/01/22 04/01/22 04/01/22 01:14 03:10 05:31 WBC Hgb Hct RDW Plt Count Lymph % (Auto) Drew % (Auto) Drew # (Auto) Seg Neutrophils % Seg Neutrophils # PT INR Heparin Anti-Xa Level 0.15 L VBG pH Sodium 135 L Potassium 3.5 L Chloride Carbon Dioxide 19 L BUN Creatinine Glucose 142 H POC Glucose 113 H Hemoglobin A1c Calcium 7.9 L Phosphorus Ferritin AST ALT Total Creatine Kinase CK-MB (CK-2) Troponin T Triglycerides 04/01/22 04/01/22 04/01/22 05:31 05:31 06:20 WBC Hgb Hct RDW 12.8 L Plt Count 55 L Lymph % (Auto) Drew % (Auto) 9.7 H Drew # (Auto) 1.0 H Seg Neutrophils % Seg Neutrophils # PT INR Heparin Anti-Xa Level 0.15 L VBG pH Sodium Potassium Chloride Carbon Dioxide BUN Creatinine Glucose POC Glucose 154 H Hemoglobin A1c Calcium Phosphorus Ferritin AST ALT Total Creatine Kinase CK-MB (CK-2) Troponin T Triglycerides 04/01/22 04/01/22 04/01/22 09:31 09:37 10:38 WBC Hgb Hct RDW Plt Count Lymph % (Auto) Drew % (Auto) Drew # (Auto) Seg Neutrophils % Seg Neutrophils # PT INR Heparin Anti-Xa Level VBG pH Sodium 136 L Potassium 3.1 L Chloride Carbon Dioxide 20 L BUN Creatinine Glucose 104 H POC Glucose 115 H 117 H Hemoglobin A1c Calcium 7.5 L Phosphorus Ferritin AST ALT Total Creatine Kinase CK-MB (CK-2) Troponin T Triglycerides 04/01/22 04/01/22 04/01/22 11:43 15:46 16:04 WBC Hgb Hct RDW Plt Count Lymph % (Auto) Drew % (Auto) Drew # (Auto) Seg Neutrophils % Seg Neutrophils # PT 19.3 H INR 1.44 H Heparin Anti-Xa Level VBG pH Sodium Potassium Chloride Carbon Dioxide BUN Creatinine Glucose POC Glucose 116 H 183 H Hemoglobin A1c Calcium Phosphorus Ferritin AST ALT Total Creatine Kinase CK-MB (CK-2) Troponin T Triglycerides 04/01/22 04/02/22 04/02/22 16:04 04:15 04:15 WBC Hgb Hct RDW 12.5 L Plt Count 69 L Lymph % (Auto) Drew % (Auto) Drew # (Auto) Seg Neutrophils % Seg Neutrophils # PT INR Heparin Anti-Xa Level VBG pH Sodium 135 L Potassium Chloride Carbon Dioxide 20 L BUN Creatinine Glucose 198 H 111 H POC Glucose Hemoglobin A1c Calcium 8.0 L 8.2 L Phosphorus Ferritin AST ALT Total Creatine Kinase CK-MB (CK-2) Troponin T Triglycerides 04/02/22 04/02/22 04/02/22 07:38 11:28 16:28 WBC Hgb Hct RDW Plt Count Lymph % (Auto) Drew % (Auto) Drew # (Auto) Seg Neutrophils % Seg Neutrophils # PT INR Heparin Anti-Xa Level VBG pH Sodium Potassium Chloride Carbon Dioxide BUN Creatinine Glucose POC Glucose 106 H 158 H 141 H Hemoglobin A1c Calcium Phosphorus Ferritin AST ALT Total Creatine Kinase CK-MB (CK-2) Troponin T Triglycerides 04/02/22 04/03/22 04/03/22 20:23 05:48 08:00 WBC Hgb Hct RDW 12.5 L Plt Count 88 L Lymph % (Auto) Drew % (Auto) Drew # (Auto) Seg Neutrophils % Seg Neutrophils # PT INR Heparin Anti-Xa Level VBG pH Sodium Potassium Chloride Carbon Dioxide BUN Creatinine Glucose POC Glucose 176 H 124 H Hemoglobin A1c Calcium Phosphorus Ferritin AST ALT Total Creatine Kinase CK-MB (CK-2) Troponin T Triglycerides 04/03/22 04/03/22 04/03/22 12:03 16:29 20:59 WBC Hgb Hct RDW Plt Count Lymph % (Auto) Drew % (Auto) Drew # (Auto) Seg Neutrophils % Seg Neutrophils # PT INR Heparin Anti-Xa Level VBG pH Sodium Potassium Chloride Carbon Dioxide BUN Creatinine Glucose POC Glucose 156 H 125 H 173 H Hemoglobin A1c Calcium Phosphorus Ferritin AST ALT Total Creatine Kinase CK-MB (CK-2) Troponin T Triglycerides 04/04/22 04/04/22 06:32 07:40 WBC Hgb Hct RDW 12.5 L Plt Count 110 L Lymph % (Auto) Drew % (Auto) Drew # (Auto) Seg Neutrophils % Seg Neutrophils # PT INR Heparin Anti-Xa Level VBG pH Sodium Potassium Chloride Carbon Dioxide BUN Creatinine Glucose POC Glucose 124 H Hemoglobin A1c Calcium Phosphorus Ferritin AST ALT Total Creatine Kinase CK-MB (CK-2) Troponin T Triglycerides Allied health notes reviewed: nursing
--- NOTE | 2022-04-04 11:06 | Progress Note ---
Assessment and Plan Patient is a 46-year-old female with a past medical history of anxiety who presented to the ED yesterday with a complaint of fatigue and shortness of breath x3 days DKA Bilateral PE NSTEMI suspect type II Metabolic acidosis Hyponatremia Hyperkalemia [id number]-[id number] following Obesity Echo 03/30/2022- EF50 to 55%. Mild diastolic dysfunction is present impaired relaxation pattern. Right ventricle is mildly dilated. Septum is flattened in diastole consistent with RV volume overload. Right ventricular systolic function is normal. Mobile echo bright density present in right atrium. No aortic regurgitation. No mitral valve regurgitation. Trace tricuspid regurgitation. Trace pulmonic regurgitation Echo limited study 04/03/2022-EF 55 to 60%. Right ventricle systolic function is normal. Echodensity in right atrium is similar in size from 03/31/2022. No aortic valve stenosis. Mitral valve is normal in structure Plan: Patient currently anticoagulated on Eliquis. Will defer management to heme-onc Discussed importance of follow-up appointments and medication compliance with patient who verbalized understanding and acknowledgment Cardiac status otherwise stable Plan of care discussed with patient who verbalized understanding and acknowledgment Patient may follow-up with Dr. Lynn, [facility], on 05/19/2022 at 2 PM in our [place] location. Phone #[phone] Patient in conjunction with Dr. Lynn who agrees with this plan of care - Patient Problems (1) DKA (diabetic ketoacidosis) Current Visit: Yes Status: Acute (2) Diabetes mellitus, new onset Current Visit: Yes Status: Acute (3) Thrombocytopenia Current Visit: Yes Status: Acute (4) Hyperkalemia Current Visit: Yes Status: Acute (5) Hyponatremia Current Visit: Yes Status: Acute (6) Metabolic acidosis Current Visit: Yes Status: Acute (7) Elevated troponin Current Visit: Yes Status: Acute Subjective Date of service: 04/04/22 Principal diagnosis: Bilateral PE/ DKA Interval history: Patient resting in bed in no acute distress. Sinus 80s on monitor with no event Objective Vital Signs Temp Pulse Resp BP Pulse Ox 04/04/22 09:38 76 166/119 04/04/22 04:42 98.8 F 96 H 125/78 95 04/03/22 22:51 98.6 F 94 H 22 115/76 95 07/18/22 22:00 95 - Physical Examination General: No Apparent Distress HEENT: Positive: EOMI, Normocephaly Neck: Positive: neck supple, trachea midline Cardiac: Positive: Reg Rate and Rhythm Lungs: Positive: Normal Breath Sounds Neuro: Positive: Grossly Intact Abdomen: Positive: Soft. Negative: Tender Skin: Negative: Rash Musculoskeletal: No Pain Extremities: Present: upper extr. pulses, warm. Absent: edema - Labs and Meds CBC 04/04/22 Range/Units 06:32 WBC 6.4 (4.5-11.0) K/mm3 RBC 4.32 (3.65-5.03) M/mm3 Hgb 13.7 (10.1-14.3) gm/dl Hct 40.2 (30.3-42.9) % Plt Count 110 L (140-440) K/mm3 - Imaging and Cardiology EKG: report reviewed, image reviewed Echo: report reviewed - Telemetry EKG Rhythm: Sinus Rhythm - EKG Sinus rhythms and dysrhythmias: sinus rhythm, sinus tachycardia Repolarization changes or abnormalities: nonspecific abnormality, ST segment, and/or T wave Myocardial infarction: inferior TN (old age inde - Allied health notes Allied health notes reviewed: nursing
[2022-04-04] MEDS: INSULIN GLARGINE 100 UNITS/ML SUB-Q SCH (12:17)
[2022-04-04 14:41] VITALS: BP 169/109
--- NOTE | 2022-04-04 15:04 | Progress Note ---
Assessment and Plan 46-year-old female with submassive pulmonary embolism status postthrombolytic therapy with repeat CT scan demonstrating moderate amount of residual pulmonary embolism. This was performed for abnormal echocardiogram. The patient is symptomatically doing well and maintained her saturations with ambulation. She did not have any subjective shortness of breath. She is symptomatically doing very well. Continue anticoagulation and follow-up with Dr. Victor in 2 weeks. Has left lower extremity DVT. Discussed with patient. This will be followed as an outpatient. Continue anticoagulation. Follow-up with Dr. Victor in 2 weeks. Subjective Date of service: 04/04/22 Principal diagnosis: Bilateral PE/ DKA Interval history: Doing well. Was able to ambulate without any desaturation and felt good without shortness of breath. On room air. DVT study demonstrated left lower extremity DVT which will be followed as an outpatient. Objective - Constitutional Vitals: Vital Signs - 12hr 04/04/22 04/04/22 04/04/22 04:42 09:38 10:00 Temperature 98.8 F Pulse Rate 96 H 76 80 Blood Pressure 125/78 166/119 [Left] O2 Sat by Pulse 95 95 Oximetry 04/04/22 04/04/22 10:30 14:23 Temperature Pulse Rate 90 97 H Blood Pressure 169/109 [Left] O2 Sat by Pulse Oximetry General appearance: Present: no acute distress - EENT Eyes: EOM intact ENT: hearing intact - Neck Neck: supple - Respiratory Respiratory effort: normal Extremities: normal temperature, normal color Extremity abnormal: edema (Left lower extremity) - Gastrointestinal General gastrointestinal: Present: soft, non-tender - Psychiatric Psychiatric: appropriate mood/affect, cooperative - Labs CBC & Chem 7: 04/04/22 06:32 04/02/22 04:15 Labs: Abnormal lab results 04/03/22 04/03/22 04/04/22 Range/Units 16:29 20:59 06:32 RDW 12.5 L (13.2-15.2) % Plt Count 110 L (140-440) K/mm3 POC Glucose 125 H 173 H (70-105) mg/dL 04/04/22 04/04/22 Range/Units 07:40 11:12 RDW (13.2-15.2) % Plt Count (140-440) K/mm3 POC Glucose 124 H 227 H (70-105) mg/dL Medications & Allergies - Medications Allergies/Adverse Reactions: Allergies No Known Allergies Allergy (Unverified 03/29/22 14:51) Home Medications: Home Medications Medication Instructions Recorded Confirmed Last Taken Type ALPRAZolam [Xanax TAB] 0.25 mg PO Q8H PRN #10 tablet 04/04/22 Unknown Rx Apixaban [Eliquis] 5 mg PO Q12HR 180 Days tablet 04/04/22 Unknown Rx Apixaban [Eliquis] 10 mg PO Q12HR #14 tablet 04/04/22 Unknown Rx Insulin Glargine [Lantus VIAL] 10 units SUB-Q QAMDIAB 30 Days 04/04/22 Unknown Rx units lisinopriL [Zestril TAB] 20 mg PO QDAY #30 tablet 04/04/22 Unknown Rx HEART Score - HEART Score Troponin: Troponin T 0.033 ng/mL (0.00-0.029) H D 03/30/22 22:19
[2022-04-05 20:44] LABS: Cardiolipin Ab IgA <2.0 APL-U/mL (<20.0); Cardiolipin Ab IgG <2.0 GPL-U/mL (<20.0); Cardiolipin Ab IgM <2.0 MPL-U/mL (<20.0)
[2022-04-06 17:23] LABS: Heparin-Induced Platelet Antib Negative (Negative); Unfractionated Heparin Negative (Negative)
[2022-04-08] MEDS ORDERED: APIXABAN 5 MG TAB PO SCH (10:00)
== END 2022-04-04 14:10 | disposition home or self-care (01) | DRG 175 ==
LOC: ED 14:26 → CC1 17:44 → 4A 04-02 16:11
PROVIDERS: ADMIT Internal Medicine; ATTEND Hospitalist
PROC: 02HR33Z Insertion of Infusion Device into Left Pulmonary Artery, Percutaneous Approach (ICD-10-PCS; principal; 2022-03-31)
PROC: 02HQ33Z Insertion of Infusion Device into Right Pulmonary Artery, Percutaneous Approach (ICD-10-PCS; 2022-03-31)
PROC: 3E05317 Introduction of Other Thrombolytic into Peripheral Artery, Percutaneous Approach (ICD-10-PCS; 2022-03-31)
DX: I26.99 Other pulmonary embolism without acute cor pulmonale (principal); I21.A1 Myocardial infarction type 2; E11.10 Type 2 diabetes mellitus with ketoacidosis without coma; E87.1 Hypo-osmolality and hyponatremia; I82.402 Acute embolism and thrombosis of unspecified deep veins of left lower extremity; E87.5 Hyperkalemia; E66.01 Morbid (severe) obesity due to excess calories; Z68.33 Body mass index [BMI] 33.0-33.9, adult; F17.200 Nicotine dependence, unspecified, uncomplicated; D69.6 Thrombocytopenia, unspecified; F41.9 Anxiety disorder, unspecified; D25.9 Leiomyoma of uterus, unspecified; Z82.49 Family history of ischemic heart disease and other diseases of the circulatory system
CPT/HCPCS: 36415; 37211; 71045; 71275; 74178; 76856; 80048; 80053; 80061; 80307; 81001; 82550; 82553; 82728; 82805; 82962; 83036; 83550; 83735; 84100; 84439; 84443; 84484; 84703; 85025; 85027; 85384; 85520; 85610; 85730; 86022; 86147; 93005; 93306; 93308; 93321; 93325; 93970; G0378; J3480; J7070; Q9967; C1757; C1769; C1894; C8929; J0360; J0610; J1644; J1815; J2060; J2250; J2270; J2405; J2997; J3010; J7030